=== PATIENT | female | born 2000 | race Caucasian/White ===

== ENCOUNTER 2020-02-24 11:00 | Outpatient (RCR) | payer BC, SELFPAY | END 2020-02-24 11:05 | disposition home or self-care (01) | LOC: PT 11:00 | PROVIDERS: PCP Emergency Medicine | DX: M54.42 Lumbago with sciatica, left side (principal) | CPT/HCPCS: 97163 ==

== ENCOUNTER 2020-04-14 11:36 | Emergency (ER) | payer BC, SELFPAY ==
[2020-04-14 11:42] VITALS: BP 145/96; PULSE 99; RESP 18; TEMP 36.9; O2SAT 100; BMI 29.2
[2020-04-14 12:00] VITALS: BMI 29.2
[2020-04-14 12:13] LABS: Microscopic, Urine URINE MICROSCOPIC (MICROSCOPIC)
[2020-04-14 12:14] LABS: Appearance,Urine CLEAR (Clear); Blood, Urine Negative (Negative); Color,Urine AMBER (Yellow); Glucose,Urine (UA) Negative (Negative); Ketones,Urine Negative (Negative); Leukocyte Esterase,Urine Negative (Negative); Nitrate,Urine Negative (Negative); Protein,Urine Negative (Negative); Specific Gravity, Urine 1.025 (1.005-1.030)
[2020-04-14 12:16] LABS: Urine Pregnancy, HCG Qual. Negative (Negative)
[2020-04-14 12:21] LABS: Bilirubin,Urine 1+ (Negative)
--- NOTE | 2020-04-14 12:29 | HMH.EDFEV ---
ED Disposition Clinical Impression: Fever of unknown origin Disposition: Home, Self-Care Condition on Discharge: Good Instructions: DI for Fever (Symptom) -- Adult Additional Instructions: fluids and see pcp for follow up Referrals: Oj Forrest MD [Primary Care Provider] - - Critical Care Critical Care Time: No Attestation: On 04/14/20, the high probability of a clinically significant, sudden or life threatening deterioration of the following system(s) required my full and direct attention, intervention and personal management. The time I documented below is in addition to time spent performing reported procedures but includes the following listed in this critical care notation. Medical Decision Making - Medical Records Medical records reviewed: Yes: I reviewed the patient's medical records. - Scooter Inquiry Pt receiving controlled substance: No Vital Signs: 04/14/20 11:42 Temperature 98.5 F Temperature Source Oral Pulse Rate [Right Radial] 99 H Respiratory Rate 18 Blood Pressure [Right Arm] 145/96 H Blood Pressure Mean [Right Arm] 112 Blood Pressure Source [Right Arm] Automatic Cuff Blood Pressure Position [Right Arm] Sitting 02 Sat by Pulse Oximetry 100 Oxygen Delivery Method Room Air - Lab Data Lab results reviewed: Yes: I reviewed the patient's lab results. Lab Results 04/14/20 12:00: Urine Color Maria [place], Urine Appearance Clear, Urine pH 6.0, Ur Specific [place] 1.025, Urine Protein Negative, Urine Glucose (UA) Negative, Urine Ketones Negative, Urine Blood Negative, Urine Nitrate Negative, Urine Bilirubin 1+ A, Urine Urobilinogen 4.0, Ur Leukocyte Esterase Negative 04/14/20 12:00: Urine HCG, Qual Negative Orders (Tests/Meds): ORDERS Category Date Time Status Urinalysis and Microscopic Stat Lab 04/14/20 12:00 Results Fever HPI - General Chief Complaint: Fever Stated Complaint: Fever Time Seen by Provider: 04/14/20 12:29 Mode of Arrival: Ambulatory Source of Information: Patient, Medical Record Limitations: No Limitations Description of Symptoms (Recalled from ER Triage Doc. by RN): Pt reports has been having intermittent fevers for 1.5 weeks. Pt reports only other symptom is nausea in the mornings. Pt reports last fever was lastnight - History of Present Illness HPI Narrative: pt with fever over the last week with no specific sx or rash - no sore throat and no exposure to mono/covid or any disease - no gi or gu sx complaint: fever Onset (ago): day(s) Associated symptoms: denies other symptoms Relieving factors: nothing Treatments prior to arrival fever: none - Related Data Previous Rx's Medication Instructions Recorded amoxicillin 500 mg capsule 500 mg PO Q12H 10 Days #20 cap 12/29/19 Allergies Allergy/AdvReac Type Severity Reaction Status Date / Time venom-honey bee Allergy Mild Verified 12/29/19 13:57 [bee venom (honey bee)] [facility] History - Hepatitis A Screen Drug use history?: No High risk sexual behaviors?: No History of sexually transmitted infection?: No Currently employed?: No Childcare worker?: No Do you have indoor plumbing?: Yes Do you have electricity?: Yes Attestation statement:: This patient has been screened for Hepatitis A risk factors. I have reviewed the patient's past medical history: Yes 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: Denies:: Cancer, Diabetes Mellitus Type 1, Diabetes Mellitus Type 2, MRSA Laterality Cases: Right: ACL Repair Other Surgeries: Yes: No Previous Surgery, Other Amputation: No Fractures: No - Social History Smoking Status: Never smoker Alcohol Intake: never Substance Use Type: denies use Occupational Status: employed Housing: house Household Members: family Family Hx:: Hypertension ROS Obtained: Yes All systems reviewed & no additional complaints - Constitutional Constitutional: Reports fever(s), Denies weakness - Eyes Eyes: Denies change in vision - ENT Ears, Nose, Mouth, and Throat: Imer
--- NOTE | 2020-04-14 12:33 | PC.NURSE ---
LAB IS COMING DOWN TO DRAW BLOOD ON PT
[2020-04-14 12:39] LABS: Bacteria,Urine Trace /lpf
[2020-04-14 13:14] VITALS: BP 124/78; PULSE 76; RESP 18; TEMP 36.8; O2SAT 98
[2020-04-14 13:21] LABS: Basophils # 0.1 K/mm3 (0-0.2); Basophils % 1.3 % (0.1-2.0); Chloride 105 mmol/L (98-107); Eosinophils # 0.2 K/mm3 (0.0-0.4); Eosinophils % 2.9 % (0.1-12.0); Hematocrit 31.1 % (37.0-47.0); Hemoglobin 10.7 g/dL (12.2-16.2); Lymphocytes # 4.2 K/mm3 (0.7-4.5); Mean Corpuscular HGB Conc 34.5 g/dL (31.8-35.4); Mean Corpuscular Hemoglobin 31.8 pg (27.0-31.2); Mean Corpuscular Volume 92.4 fl (81-99); Mean Platelet Volume 8.1 fl (7.4-10.4); Monocytes # 0.2 K/mm3 (0.1-1.0); Monocytes % 3.3 % (1.7-9.3); Neutrophils # 2.5 K/mm3 (1.8-7.8); Neutrophils % 34.4 % (37.0-80.0); Platelet Count 186 K/mm3 (142-424); Potassium 4.1 mmoL/L (3.5-5.1); Red Blood Count 3.37 M/mm3 (4.20-5.40); Red Cell Distribution Width 15.3 % (11.5-17.5); Sodium 137 mmol/L (136-145); White Blood Count 7.3 K/mm3 (4.5-13.0)
[2020-04-14 13:22] LABS: MANUAL DIFFERENTIAL MANUAL DIFFERENTIAL (MANUAL DIFF)
[2020-04-14 13:24] LABS: Alanine Aminotransferase 123 U/L (12-78); Albumin/Globulin Ratio 1.1 (1.1-1.8); Alkaline Phosphatase 187 U/L (38-126); Anion Gap 8.1 mEq/L (5-15); Aspartate Amino Transferase 101 U/L (14-36); Bilirubin,Total 0.8 mg/dl (0.2-1.3); Blood Urea Nitrogen 9 mg/dl (7-17); Calcium 9.5 mg/dl (8.4-10.2); Carbon Dioxide 28 mmol/L (22.0-30.0); Creatinine Clearance Estimated 206 mL/min (50-200); Estimated Glomerular Filt Rate 127 ml/min (>60); GFR (African American) 154 ML/MIN (>60); Globulin 3.6 g/dL (1.3-3.2); Glucose 111 mg/dl (74-100); Total Protein,Serum 7.6 g/dl (6.3-8.2)
[2020-04-14 13:30] LABS: C-Reactive Protein 10.1 mg/L (0-4)
[2020-04-14 13:39] LABS: Eosinophils % 2 % (0-3); Lymphocytes % 53 % (10-50); Monocytes % 5 % (2-9); Neutrophils % 34 % (42-76); Total Cells Counted 100
[2020-04-14 13:40] LABS: Platelet Estimate Normal; RBC Morphology Normal
[2020-04-14 13:44] LABS: T4 (Thyroxine) 12.2 ug/dl (5.53-11.0)
[2020-04-14 13:54] LABS: Erythrocyte Sedimentation Rate 106 mm/hr (0-20)
[2020-04-14 13:58] LABS: Thyroid Stimulating Hormone 1.78 uIU/mL (0.465-4.68)
== END 2020-04-14 13:16 | disposition home or self-care (01) ==
PROVIDERS: Emergency Provider Emergency Medicine; PCP Emergency Medicine
DX: R50.9 Fever, unspecified (principal)
CPT/HCPCS: 36415; 80053; 81001; 81025; 84436; 84443; 85007; 85025; 85651; 86140; 99282

== ENCOUNTER 2020-09-09 11:37 | Emergency (ER) | payer BC, SELFPAY ==
[2020-09-09 12:40] VITALS: BP 132/74; PULSE 66; RESP 20; TEMP 36.8; O2SAT 100; BMI 30.2
--- NOTE | 2020-09-09 13:01 | HMH.EDUTC ---
[facility] [place] Clinical Impression: UTI (urinary tract infection) Qualifiers: Urinary tract infection type: site unspecified Hematuria presence: without hematuria Qualified Code(s): N39.0 - Urinary tract infection, site not specified Disposition: Home, Self-Care Condition on Discharge: Good Instructions: Urinary Tract Infection Additional Instructions: Drink plenty of fluids. Take tylenol or ibuprofen for pain or fever. Take the medications as directed. Follow up with your regular doctor. GO TO THE ER FOR ANY WORSENING SYMPTOMS The pyridium will make your urine turn orange, this is an expected side effect. It will stain your clothes if it comes into contact with them. Prescriptions: Sulfamethoxazole/Trimethoprim [Bactrim DS tablet] 1 each PO BID 7 Days #14 tab Transmission Status: Received by [facility] Phenazopyridine HCl [Pyridium 200mg Tablet] 200 pow PO TID #6 tab Transmission Status: Received by [facility] Referrals: PCP,No [Primary Care Provider] - Forms: Work/School Release Time of Disposition: 13:12 Medical Decision Making - Medical Records Medical records reviewed: No: I reviewed the patient's medical records. - Scooter Inquiry Pt receiving controlled substance: No Vital Signs: 09/09/20 12:40 09/09/20 13:18 Temperature 98.3 F 98.3 F Temperature Source Oral Pulse Rate 66 Pulse Rate [Right Brachial] 66 Respiratory Rate 20 20 Blood Pressure 132/74 Blood Pressure [Right Arm] 132/74 Blood Pressure Mean [Right Arm] 93 Blood Pressure Source [Right Arm] Automatic Cuff Blood Pressure Position [Right Arm] Sitting 02 Sat by Pulse Oximetry 100 Oxygen Delivery Method Room Air - Lab Data Lab results reviewed: Yes: I reviewed the patient's lab results. Lab Results 09/09/20 13:19: Urine Color Yellow, Urine Appearance Clear, Urine pH 6.5, Ur Specific [place] 1.015, Urine Protein Negative, Urine Glucose (UA) Negative, Urine Ketones Negative, Urine Blood Negative, Urine Nitrate Negative, Urine Bilirubin Negative, Urine Urobilinogen 0.2, Ur Leukocyte Esterase 1+ A Orders (Tests/Meds): ORDERS Category Date Time Status Urine Culture Routine Micro 09/09/20 12:45 [place] [facility] [place] - General Stated complaint: Possible uti Time Seen by Provider: 09/09/20 13:01 - History of Present Illness Provider Complaint: She states that for the past 3 days she has been having burning while urinating, low back pain, and foul smelling urine. She states that sometimes she gets uti's and it feels like she has one now. - Related Data Previous Rx's Medication Instructions Recorded Phenazopyridine HCl [Pyridium 200 pow PO TID #6 tab 09/09/20 200mg Tablet] Sulfamethoxazole/Trimethoprim 1 each PO BID 7 Days #14 tab 09/09/20 [Bactrim DS tablet] Allergies Allergy/AdvReac Type Severity Reaction Status Date / Time venom-honey bee Allergy Mild Verified 12/29/19 13:57 [bee venom (honey bee)] [facility] History - Hepatitis A Screen Attestation statement:: This patient has been screened for Hepatitis A risk factors. I have reviewed the patient's past medical history: Yes 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: Denies:: Cancer, Diabetes Mellitus Type 1, Diabetes Mellitus Type 2, MRSA Laterality Cases: Right: ACL Repair Other Surgeries: Yes: No Previous Surgery, Other Amputation: No Fractures: No - Social History Smoking Status: Never smoker Alcohol Intake: never Substance Use Type: denies use Occupational Status: employed Housing: house Household Members: family Family Hx:: Hypertension ROS Obtained: Yes All systems reviewed & no additional complaints - Constitutional Constitutional: Reports system reviewed and no additional complaints, except as docu - Eyes Eyes: Reports system reviewed and no additional complaints, except as docu - ENT Ears, Nose, Mouth, and Throat: Reports system reviewed and no additional complaints, except as
[2020-09-09 13:18] VITALS: BP 132/74; PULSE 66; RESP 20; TEMP 36.8; O2SAT 100
[2020-09-09 13:21] LABS: Apearance,Urine Clear (Clear); Color,Urine Yellow (Yellow); PH,Urine 6.5 (5.0-8.5)
[2020-09-09 13:22] LABS: Bilirubin,Urine Negative (Negative); Blood, Urine Negative (Negative); Glucose,Urine (UA) Negative (Negative); Ketones,Urine Negative (Negative); Protein,Urine Negative (Negative); Specific Gravity, Urine 1.015 (1.005-1.030); UTC Leukocyte Esterase,Urine 1+ (Negative); UTC Nitrate,Urine Negative (Negative); Urobilinogen,Urine 0.2 EU/dl (0.2)
== END 2020-09-09 13:23 | disposition home or self-care (01) ==
PROVIDERS: Emergency Provider Nurse Practitioner Family
DX: N39.0 Urinary tract infection, site not specified (principal)
CPT/HCPCS: 81003; 87086; 99201

== ENCOUNTER 2021-02-17 17:00 | Outpatient (RCR) | payer BC, SELFPAY | END 2021-02-17 17:05 | disposition home or self-care (01) | LOC: PT 17:00 | PROVIDERS: PCP Nurse Practitioner Family; Visit Provider Orthopaedic Surgery Adult Reconstructive Orthopaedic Surgery | DX: M54.5 Low back pain (principal) | CPT/HCPCS: 97010; 97014; 97110; 97163; G0283 ==

== ENCOUNTER 2021-02-19 18:53 | Emergency (ER) | payer BC, SELFPAY ==
[2021-02-19 18:53] VITALS: BP 156/74; PULSE 83; RESP 16; TEMP 36.7; O2SAT 97; BMI 29.2
[2021-02-19 19:32] LABS: Apearance,Urine Clear (Clear); Color,Urine Yellow (Yellow); Specific Gravity, Urine >= 1.030 (1.005-1.030)
[2021-02-19 19:33] LABS: Bilirubin,Urine Negative (Negative); Blood, Urine 3+ (Negative); Glucose,Urine (UA) Negative (Negative); Ketones,Urine Negative (Negative); Protein,Urine 3+ (Negative); UTC Leukocyte Esterase,Urine 2+ (Negative); UTC Nitrate,Urine Negative (Negative); Urobilinogen,Urine 0.2 EU/dl (0.2)
--- NOTE | 2021-02-19 19:51 | HMH.EDUTC ---
[facility] [place] Clinical Impression: UTI (urinary tract infection) Qualifiers: Urinary tract infection type: site unspecified Hematuria presence: with hematuria Qualified Code(s): N39.0 - Urinary tract infection, site not specified Disposition: Home, Self-Care Condition on Discharge: Good Instructions: Urinary Tract Infection, DI for Urinary Tract Infection (UTI) Additional Instructions: Drink plenty of fluids. Take tylenol or ibuprofen for pain or fever. Take the medications as directed. Follow up with your regular doctor. GO TO THE ER FOR ANY WORSENING SYMPTOMS The pyridium will make your urine turn orange, this is an expected side effect. It will stain your clothes if it comes into contact with them. Prescriptions: Ondansetron [Zofran 4mg ODT] 4 mg PO Q8HP PRN #9 tab.rapdis PRN Reason: Nausea [id number] Sulfamethoxazole/Trimethoprim [Bactrim DS tablet] 1 each PO BID 7 Days #14 tab Transmission Status: [id number] Phenazopyridine HCl [Pyridium 200mg Tablet] 200 pow PO TID #6 tab Transmission Status: Received by [id number] Referrals: Anival Ames MD [Primary Care Provider] - Forms: Work/School Release Time of Disposition: 19:58 Medical Decision Making - Medical Records Medical records reviewed: No: I reviewed the patient's medical records. - Scooter Inquiry Pt receiving controlled substance: No Vital Signs: 02/19/21 18:53 02/19/21 20:05 Temperature 98.1 F 98.1 F Temperature Source Oral Oral Pulse Rate 83 Pulse Rate [Right] 83 Respiratory Rate 16 16 Blood Pressure 156/74 H Blood Pressure [Right Arm] 156/74 H Blood Pressure Mean [Right Arm] 101 02 Sat by Pulse Oximetry 97 - Lab Data Lab Results 02/19/21 19:18: Urine Color Yellow, Urine Appearance Clear, Urine pH 6.0, Ur Specific [place] >= 1.030, Urine Protein 3+, Urine Glucose (UA) Negative, Urine Ketones Negative, Urine Blood 3+, Urine Nitrate Negative, Urine Bilirubin Negative, Urine Urobilinogen 0.2, Ur Leukocyte Esterase 2+ A Orders (Tests/Meds): ORDERS Category Date Time Status Urine Culture Stat Micro 02/19/21 19:08 [place] [facility] [place] - General Stated complaint: possible uti Time Seen by Provider: 02/19/21 19:51 Description of Symptoms (Recalled from Triage Doc. by RN): pt c/o burning urination and itching that started since yesterday HEENT Symptoms (Recalled from RN notes): No Resp Symptoms (Recalled from RN notes): No Skin Symptoms (Recalled from RN notes): No MS Symptoms (Recalled from RN notes): No Functional Status (Recalled from RN notes): wnl - History of Present Illness Provider Complaint: She states that she has had dysuria since yesterday. She has also had low back pain and some nausea at times. She thinks that she has a uti. She gets them ever so often. - Related Data Previous Rx's Medication Instructions Recorded amoxicillin 500 mg capsule 500 mg PO Q12H 10 Days #20 cap 12/16/20 Ondansetron [Zofran 4mg ODT] 4 mg PO Q8HP PRN #9 tab.rapdis 02/19/21 Phenazopyridine HCl [Pyridium 200 pow PO TID #6 tab 02/19/21 200mg Tablet] Sulfamethoxazole/Trimethoprim 1 each PO BID 7 Days #14 tab 02/19/21 [Bactrim DS tablet] Allergies Allergy/AdvReac Type Severity Reaction Status Date / Time venom-honey bee Allergy Mild Verified 12/16/20 13:55 [bee venom (honey bee)] - Worker's Comp Is this a Worker's Comp case?: No [facility] History - Hepatitis A Screen Drug use history?: No High risk sexual behaviors?: No History of sexually transmitted infection?: No Currently employed?: No Childcare worker?: No Do you have indoor plumbing?: Yes Do you have electricity?: Yes Attestation statement:: This patient has been screened for Hepatitis A risk factors. I have reviewed the patient's past medical history: Yes 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: Denies:: Cancer, Diabetes Mellitus Type 1, Diabe
[2021-02-19 20:05] VITALS: BP 156/74; PULSE 83; RESP 16; TEMP 36.7; O2SAT 97
== END 2021-02-19 20:06 | disposition home or self-care (01) ==
PROVIDERS: Emergency Provider Nurse Practitioner Family; PCP Emergency Medicine
DX: N30.00 Acute cystitis without hematuria (principal)
CPT/HCPCS: 81003; 87086; 87088; 87186; 99202; G0463

== ENCOUNTER → 2021-06-13 14:48 | Outpatient (CLI) | payer BC, SELFPAY ==
[2021-06-13 17:48] LABS: Coronavirus 19, PCR Not Detected (NotDetected); Influenza A, PCR Not Detected (NotDetected); Influenza B, PCR Not Detected (NotDetected)
== END ==
PROVIDERS: PCP Physician Assistant; Referring Provider Physician Assistant; Visit Provider Physician Assistant
DX: Z20.822 Contact with and (suspected) exposure to COVID-19 (principal)
CPT/HCPCS: U0003

== ENCOUNTER → 2021-07-07 11:18 | Outpatient (CLI) | payer BC, SELFPAY | PROVIDERS: Visit Provider Nurse Practitioner Family | DX: Z20.822 Contact with and (suspected) exposure to COVID-19 (principal) | CPT/HCPCS: U0003 ==

== ENCOUNTER → 2021-12-06 08:27 | Outpatient (CLI) | payer OTHER, SELFPAY | PROVIDERS: PCP Emergency Medicine; Visit Provider Nurse Practitioner Family | DX: Z20.822 Contact with and (suspected) exposure to COVID-19 (principal); R05.1 Acute cough | CPT/HCPCS: C9803; U0003; U0005 ==

== ENCOUNTER 2022-11-04 15:53 | Emergency (ER) | payer BC, SELFPAY ==
[2022-11-04 16:20] VITALS: BP 149/88; PULSE 70; RESP 20; TEMP 36.9; O2SAT 98; BMI 31.7
[2022-11-04 16:29] LABS: Apearance,Urine Cloudy (Clear); Color,Urine Dark Yellow (Yellow)
[2022-11-04 16:30] LABS: Bilirubin,Urine 1+ (Negative); Blood, Urine 3+ (Negative); Glucose,Urine (UA) Negative (Negative); Ketones,Urine 15 (Negative); Protein,Urine 2+ (Negative); UTC Leukocyte Esterase,Urine 2+ (Negative); UTC Nitrate,Urine Negative (Negative); Urobilinogen,Urine 1 EU/dl (0.2)
--- NOTE | 2022-11-04 16:58 | EXP.UTC ---
Discharge Plan Disposition Patient Disposition: Home, Self-Care Condition: Good Prescriptions Prescriptions: New cephalexin [cephalexin] 500 mg tablet 500 mg PO BID 7 Days Qty: 14 0RF No Action citalopram [Celexa] 20 mg tablet 20 mg PO DAILY Qty: 30 1RF Referrals Follow up/Referrals: Anival Ames MD [Primary Care Provider] - See instructions Activity Restrictions/Add. Instructions Additional Instructions/Restrictions: Increase fluids, water and not soda or tea. Can drink cranberry juice or cranberry extract. White front to back Wear cotton underwear Empty bladder after intercourse Start antibiotics immediately and make sure you take the full course although you may start to see improvement over the next 48 hours. You can eat yogurt or take probiotics to decrease diarrhea or yeast infection caused by the antibiotic Be sure to follow-up anytime for new or worsening symptoms in 48 hours for wound urine culture results be sure to let you PCP no recent urine for culture so they can request records and ensure that you have appropriate antibiotic if you are not getting better or getting worse. If symptoms worsen or do not improve return or be seen in the ER. Follow-up with primary care this week. Clinical Impressions Clinical Impression: UTI (urinary tract infection) Instructions Patient Instructions: DI for Urinary Tract Infection (UTI) Discharge ED Provider: Allegra ([facility])Heidi [facility] [place] HPI General Stated complaint: possible UTI Mode of Arrival: Ambulatory Source of Information: Patient Limitations: No Limitations Time Seen by Provider: 11/04/22 16:59 Description of Symptoms (Recalled from Triage Doc. by RN): PATIENT C/O BURNING WITH URINATION, HEMATURIA, CRAMPING AND DISCHARGE THAT STARTED TODAY. SHE IS 12 WEEKS . SHE STATES SHE HAD E-COLI IN HER URINE AT THE BEGINNING OF SEPTEMBER WITHOUT SYMPTOMS AND WAS GIVEN MACROBID HEENT Symptoms (Recalled from RN notes): No Resp Symptoms (Recalled from RN notes): No Skin Symptoms (Recalled from RN notes): No MS Symptoms (Recalled from RN notes): No Functional Status (Recalled from RN notes): WNL History of Present Illness Provider Complaint: 21 YR OLD FEMALE PRESNETS C/O BURNING WITH URINATION, HEMATURIA, CRAMPING AND DISCHARGE THAT STARTED TODAY. SHE IS 12 WEEKS . SHE STATES SHE HAD E-COLI IN HER URINE AT THE BEGINNING OF SEPTEMBER WITHOUT SYMPTOMS AND WAS GIVEN MACROBID Related Data Previous Rx's Medication Instructions Recorded citalopram 20 mg tablet (Celexa) 20 mg PO DAILY #30 tabs 08/18/22 cephalexin 500 mg tablet 500 mg PO BID 7 days #14 tabs 11/04/22 Allergies Allergy/AdvReac Type Severity Reaction Status Date / Time venom-honey bee Allergy Mild Verified 08/18/22 09:47 [bee venom (honey bee)] Worker's Comp Is this a Worker's Comp case?: No [facility] Disclaimer: The information contained in this section may have been updated after the patient was seen, as this information can be updated by other users. 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
[2022-11-04 17:07] VITALS: BP 149/88; PULSE 70; RESP 20; TEMP 36.9; O2SAT 98
== END 2022-11-04 17:10 | disposition home or self-care (01) ==
PROVIDERS: Emergency Provider Nurse Practitioner Family; PCP Emergency Medicine
DX: N39.0 Urinary tract infection, site not specified (principal)
CPT/HCPCS: 81003; 87086; 99212; 99213; G0463

== ENCOUNTER 2022-11-10 15:13 | Emergency (ER) | payer BC, SELFPAY ==
[2022-11-10 15:19] VITALS: BP 119/80; PULSE 93; RESP 18; TEMP 37; O2SAT 98; BMI 32.7
--- NOTE | 2022-11-10 15:44 | US_ITS ---
FINAL REPORT TECHNIQUE: Transvaginal ultrasound imaging of the pelvis was obtained. CLINICAL HISTORY: vaginal bleeding FINDINGS: There is a single, living intrauterine measuring 63 mm consistent with 12 weeks 5 days gestation. Heart rate is identified measuring 167 beats per minute. Cervix appears closed. IMPRESSION: Single, living intrauterine . Reviewed, Interpreted and Dictated by Regino Cook III, MD Transcribed by Shea Mills Authenticated and [facility]
[2022-11-10 17:28] LABS: Basophils # 0.1 K/mm3 (0-0.2); Basophils % 0.6 % (0.1-2.0); Eosinophils # 0.2 K/mm3 (0.0-0.4); Eosinophils % 1.9 % (0.1-12.0); Hematocrit 33.7 % (37.0-47.0); Hemoglobin 11.7 g/dL (12.2-16.2); Lymphocytes # 2.7 K/mm3 (0.7-4.5); Lymphocytes % 21.8 % (10-50); Mean Corpuscular HGB Conc 34.6 g/dL (31.8-35.4); Mean Corpuscular Hemoglobin 31.6 pg (27.0-31.2); Mean Corpuscular Volume 91.2 fl (81-99); Monocytes # 0.4 K/mm3 (0.1-1.0); Monocytes % 3.6 % (1.7-9.3); Neutrophils % 72.2 % (37.0-80.0); Platelet Count 258 K/mm3 (142-424); Red Cell Distribution Width 12.9 % (11.5-17.5); White Blood Count 12.4 K/mm3 (4.8-10.8)
[2022-11-10 17:50] LABS: Chloride 105 mmol/L (98-107); Potassium 3.7 mmoL/L (3.5-5.1); Sodium 140 mmol/L (136-145)
[2022-11-10 17:52] LABS: Blood Urea Nitrogen 7 mg/dl (7-17); Creatinine Clearance Estimated 264 mL/min (50-200); Estimated Glomerular Filt Rate 154 ml/min (>60); GFR (African American) 187 ML/MIN (>60)
[2022-11-10 17:53] LABS: Alanine Aminotransferase 19 U/L (12-78); Albumin Level 4.1 g/dl (3.5-5.0); Albumin/Globulin Ratio 1.3 (1.1-1.8); Alkaline Phosphatase 66 U/L (38-126); Anion Gap 12.7 mEq/L (5-15); Aspartate Amino Transferase 25 U/L (14-36); Bilirubin,Total 0.2 mg/dl (0.2-1.3); Calcium 9.4 mg/dl (8.4-10.2); Carbon Dioxide 26 mmol/L (22.0-30.0); Globulin 3.1 g/dL (1.3-3.2); Glucose 81 mg/dl (74-100); Total Protein,Serum 7.2 g/dl (6.3-8.2)
[2022-11-10 18:20] VITALS: BP 133/71; PULSE 79; RESP 19; TEMP 36.9; O2SAT 98
[2022-11-10 18:48] LABS: HCG,Quantitative 80996 mIU/ml (0-5.42)
--- NOTE | 2022-11-10 19:54 | HMH.EDGENADL ---
Discharge Plan Disposition Patient Disposition: Home, Self-Care Prescriptions Prescriptions: No Action citalopram [Celexa] 20 mg tablet 20 mg PO DAILY Qty: 30 1RF cephalexin [cephalexin] 500 mg tablet 500 mg PO BID 7 Days Qty: 14 0RF Referrals Follow up/Referrals: Anival Ames MD [Primary Care Provider] - See instructions Clinical Impressions Clinical Impression: First-trimester bleeding Instructions Patient Instructions: DI for Vaginal Bleeding During , Early Bleeding Discharge ED Provider: Anish Ontiveros General Adult HPI General Chief complaint: Vaginal Bleeding Stated complaint: 12 weeks preg, bleeding Time Seen by Provider: 11/10/22 15:20 Mode of Arrival: Ambulatory Source of Information: Patient Limitations: No Limitations Description of Symptoms (Recalled from ER Triage Doc. 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 Patient sees Dr. Melgar with [facility]. She adds that she is currently taking Keflex since Sunday for UTI. History of Present Illness HPI narrative: Patient is a 21-year-old female who is currently a at 12 weeks who presents with concern for vaginal bleeding. She says approximately 30 minutes prior to arrival she got acute in onset of bright red vaginal bleeding. She called her OB who recommended she come in for evaluation. She says that this is never happened in the past. She says that it was just 1 time and it was bright red. She only endorses some very mild suprapubic pain. Denies any nausea or vomiting. Denies any fever or chills. Denies any dysuria or hematuria Related Data Previous Rx's Medication Instructions Recorded citalopram 20 mg tablet (Celexa) 20 mg PO DAILY #30 tabs 08/18/22 cephalexin 500 mg tablet 500 mg PO BID 7 days #14 tabs 11/04/22 Allergies Allergy/AdvReac Type Severity Reaction Status Date / Time venom-honey bee Allergy Mild Verified 08/18/22 09:47 [bee venom (honey bee)] [facility] Disclaimer: The information contained in this section may have been updated after the patient was seen, as this information can be updated by other users. 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) Smoking Status: Never smoker quit status: considering quitting second hand exposure: No alcohol intake: never substance use type: denies use current occupational status: employed Travel in the last 8 weeks: None adopted: No caregiver/support person: Yes (for her son) foster care: No household members: significant other and children housing: house lives independently: No marital status: life partner number of children: 1 number of grandchildren: 0 education level: high school service: No long-term: No 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
== END 2022-11-10 18:21 | disposition home or self-care (01) ==
PROVIDERS: Emergency Provider Student in an Organized Health Care Education/Training Program; PCP Emergency Medicine
DX: O46.8X1 Other antepartum hemorrhage, first trimester (principal); Z3A.12 12 weeks gestation of pregnancy
CPT/HCPCS: 76801; 80053; 84702; 85025; 86850; 99285

== ENCOUNTER → 2023-07-30 16:20 | Outpatient (CLI) | payer BC, SELFPAY ==
--- NOTE | 2023-07-30 16:27 | XR_ITS ---
PROCEDURE INFORMATION: Exam: XR Lumbosacral Spine Exam date and time: 07/30/2023 4:28 PM Age: 22 years old Clinical indication: Low back pain; Additional info: Back pain since epidural in April TECHNIQUE: Imaging protocol: Radiologic exam of the lumbosacral spine. Views: 4 or 5 views. COMPARISON: ABDPELWO CT abdomen pelvis wo con 07/05/2018 1:17 AM FINDINGS: Tubes, catheters and devices: There is an intrauterine device in place. Bones/joints: Vertebral alignment is within normal limits without evidence of subluxation or spondylolisthesis. No evidence of vertebral body compression fractures, lytic or sclerotic lesions. Intervertebral disc spaces are preserved and within normal limits for patient's age. Facet joints are in normal configuration without signs of arthrosis or effusion. Soft tissues: Paravertebral soft tissues appear unremarkable. IMPRESSION: No radiographic evidence for acute spinal abnormality.
== END ==
LOC: RAD 16:22
PROVIDERS: PCP Emergency Medicine; Visit Provider Nurse Practitioner
DX: M54.9 Dorsalgia, unspecified (principal)
CPT/HCPCS: 72110

== ENCOUNTER 2023-11-28 08:47 | Emergency (ER) | payer BC, SELFPAY ==
[2023-11-28 09:22] LABS: Apearance,Urine Cloudy (Clear); Color,Urine Yellow (Yellow)
[2023-11-28 09:23] LABS: Bilirubin,Urine Negative (Negative); Blood, Urine 3+ (Negative); Glucose,Urine (UA) Negative (Negative); Ketones,Urine Negative (Negative); Protein,Urine 1+ (Negative); UTC Leukocyte Esterase,Urine 1+ (Negative); UTC Nitrate,Urine Positive (Negative); Urobilinogen,Urine 0.2 EU/dl (0.2)
[2023-11-28 09:30] VITALS: BP 141/70; PULSE 71; RESP 18; TEMP 36.9; O2SAT 99; BMI 30.4
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
[2023-11-28 10:11] VITALS: BP 141/70; PULSE 71; RESP 19; TEMP 36.9; O2SAT 99
== END 2023-11-28 10:11 | disposition home or self-care (01) ==
PROVIDERS: Emergency Provider Nurse Practitioner Family; PCP Emergency Medicine
DX: N39.0 Urinary tract infection, site not specified (principal); B95.1 Streptococcus, group B, as the cause of diseases classified elsewhere; R10.30 Lower abdominal pain, unspecified; M54.59 Other low back pain
CPT/HCPCS: 81003; 87086; 99212; 99214; G0463

== ENCOUNTER 2024-05-06 20:30 | Outpatient (CLI) | payer BC, SELFPAY | END 2024-05-06 23:59 | disposition home or self-care (01) | LOC: LAB.DROPOF 20:31 | PROVIDERS: PCP Nurse Practitioner Family; Visit Provider Nurse Practitioner Family | DX: N39.0 Urinary tract infection, site not specified (principal); D64.9 Anemia, unspecified | CPT/HCPCS: 87086 ==

== ENCOUNTER 2024-05-26 12:43 | Outpatient (CLI) | payer BC, SELFPAY | END 2024-05-26 23:59 | disposition home or self-care (01) | LOC: LAB.DROPOF 05-27 12:43 | PROVIDERS: PCP Student in an Organized Health Care Education/Training Program; Visit Provider Student in an Organized Health Care Education/Training Program | DX: N39.0 Urinary tract infection, site not specified (principal) | CPT/HCPCS: 87086 ==

== ENCOUNTER 2024-07-24 08:18 | Emergency (ER) | payer BC, SELFPAY ==
[2024-07-24] VITALS (8 sets, daily range): BP systolic 126–159; BP diastolic 81–103; PULSE 67–98; RESP 16–20; TEMP 36.7–36.9; O2SAT 97–100; BMI 34.9
--- NOTE | 2024-07-24 08:39 | XR_ITS ---
FINAL REPORT CLINICAL HISTORY: chest pain, shortness of breath states left sided cp that started around 0400 this morning COMPARISON: None FINDINGS: No acute pulmonary density is evident. There is no evidence of effusion or other pleural disease. The mediastinum has a normal appearance. The cardiac silhouette is unremarkable. IMPRESSION: Unremarkable chest exam. Reviewed, Interpreted and Dictated by Connor Dewitt MD Transcribed by Linda Armas Authenticated and [facility]
--- NOTE | 2024-07-24 08:50 | ECG_ITS ---
APPROVED REPORT Exam: Resting ECG HR:74 bpm ECG Measurements Heart Rate 74 AXES NM 157 P 65 QRSd 92 QRS 88 QT 350 T 20 QTc 377 Conclusion SINUS RHYTHM NONSPECIFIC T-WAVE ABNORMALITY BORDERLINE ECG UNCONFIRMED REPORT Electronically signed by : MIKI ROCA, 07/25/2024 04:27:35
[2024-07-24 08:54] LABS: Basophils # 0.1 K/mm3 (0-0.2); Basophils % 0.4 % (0.1-2.0); Eosinophils # 0.2 K/mm3 (0.0-0.4); Eosinophils % 1.7 % (0.1-12.0); Hematocrit 42.7 % (37.0-47.0); Hemoglobin 14.2 g/dL (12.2-16.2); Lymphocytes # 1.6 K/mm3 (0.7-4.5); Mean Corpuscular HGB Conc 33.1 g/dL (31.8-35.4); Mean Corpuscular Hemoglobin 32.1 pg (27.0-31.2); Mean Platelet Volume 8.8 fl (7.4-10.4); Monocytes # 0.4 K/mm3 (0.1-1.0); Monocytes % 3.6 % (1.7-9.3); Neutrophils # 9.8 K/mm3 (1.8-7.8); Neutrophils % 81.3 % (37.0-80.0); Platelet Count 258 K/mm3 (142-424); Red Blood Count 4.41 M/mm3 (4.20-5.40); Red Cell Distribution Width 12.7 % (11.5-17.5)
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
--- NOTE | 2024-07-24 09:00 | PC.NURSE ---
provided pt with a warm blanket
[2024-07-24 09:13] LABS: HCG Qualitative, Serum Negative (Negative)
[2024-07-24 09:16] LABS: Alanine Aminotransferase 19 U/L (12-78); Albumin Level 4.8 g/dl (3.5-5.0); Albumin/Globulin Ratio 1.5 (1.1-1.8); Alkaline Phosphatase 72 U/L (38-126); Anion Gap 11.9 mEq/L (5-15); Aspartate Amino Transferase 23 U/L (14-36); Bilirubin,Total 0.9 mg/dl (0.2-1.3); Blood Urea Nitrogen 12 mg/dl (7-17); Calcium 9.6 mg/dl (8.4-10.2); Carbon Dioxide 25 mmol/L (22.0-30.0); Chloride 105 mmol/L (98-107); Creatinine Clearance Estimated 204 mL/min (50-200); Estimated Glomerular Filt Rate 103 ml/min (>60); GFR (African American) 124 ML/MIN (>60); Globulin 3.2 g/dL (1.3-3.2); Glucose 102 mg/dl (74-100); Lipase 105 U/L (23-300); Potassium 3.9 mmoL/L (3.5-5.1); Sodium 138 mmol/L (136-145)
[2024-07-24 09:20] LABS: D-Dimer 0.45 ug/mL (0.0-0.5)
[2024-07-24 09:29] LABS: Troponin I < 0.01 ng/ml (0.00-0.034)
[2024-07-24 09:34] LABS: T4 (Thyroxine) 7.8 ug/dl (5.53-11.0)
--- NOTE | 2024-07-24 09:38 | PC.NURSE ---
provided pt with a warm blanket
[2024-07-24 09:48] LABS: Thyroid Stimulating Hormone 1.93 uIU/mL (0.465-4.68)
[2024-07-24 09:56] LABS: HIV (1&2) Antibody Rapid NONREACTIVE (NONREACTIVE)
--- NOTE | 2024-07-24 10:00 | PC.NURSE ---
dr ricardo at bedside updating pt
--- NOTE | 2024-07-24 10:02 | PC.NURSE ---
Dr. Hobbs at bedside
--- NOTE | 2024-07-24 10:03 | US_ITS ---
FINAL REPORT TECHNIQUE: Multiple transverse and longitudinal images CLINICAL HISTORY: pain/tenderness COMPARISON: None FINDINGS: The gallbladder shows no wall thickening, distention or stone disease. No biliary ductal dilatation is appreciated. No fluid collections are seen. Limited portions of the right liver are unremarkable. Limited portions of the right kidney are unremarkable. IMPRESSION: No evidence of cholelithiasis No evidence of biliary obstruction Reviewed, Interpreted and Dictated by Connor Dewitt MD Transcribed by Radha Isidro Authenticated and [facility]
[2024-07-24] MEDS: FAMOTIDINE 20MG/2ML VIAL 20 MG IV (10:13)
[2024-07-24] MEDS: ACETAMINOPHEN 500MG TAB 1000 MG PO (10:13)
[2024-07-24] MEDS: SODIUM CHLORIDE 0.9% 10ML VIAL 8 ML IV (10:13)
--- NOTE | 2024-07-24 10:17 | PC.NURSE ---
pt transported to ultrasound
--- NOTE | 2024-07-24 10:37 | PC.NURSE ---
pt returned from us
[2024-07-25 08:33] LABS: HCV Ab Non Reactive (Non Reactive)
== END 2024-07-24 11:44 | disposition home or self-care (01) ==
PROVIDERS: Emergency Provider Emergency Medicine; PCP Nurse Practitioner Family
DX: R10.13 Epigastric pain (principal); R06.02 Shortness of breath
CPT/HCPCS: 71046; 76705; 80050; 80053; 83690; 84436; 84443; 84484; 84703; 85025; 85378; 86803; 87389; 93005; 96374; 99285; J1885; S0028

== ENCOUNTER 2024-09-02 09:58 | Emergency (ER) | payer BC, SELFPAY ==
[2024-09-02 10:10] VITALS: BP 166/96; PULSE 107; RESP 20; TEMP 37.1; O2SAT 100; BMI 31.8
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
[2024-09-02 10:31] LABS: UTC Strep Screen (Rapid) Negative (Negative)
[2024-09-02 10:32] LABS: UTC Influenza A Antigen Negative (Negative); UTC Influenza B Antigen Negative (Negative)
[2024-09-02 10:36] VITALS: BP 166/96; PULSE 107; RESP 20; TEMP 37.1; O2SAT 100
== END 2024-09-02 10:41 | disposition home or self-care (01) ==
PROVIDERS: Emergency Provider Nurse Practitioner; PCP Nurse Practitioner Family
DX: B34.9 Viral infection, unspecified (principal)
CPT/HCPCS: 87635; 87804; 87880; 99213; G0381

== ENCOUNTER 2024-09-03 19:09 | Emergency (ER) | payer BC, SELFPAY ==
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
[2024-09-03 21:00] VITALS: BP 155/84; PULSE 101; O2SAT 99
[2024-09-03 21:10] VITALS: BP 136/79; PULSE 94; O2SAT 99
[2024-09-03 21:11] VITALS: BP 142/82; PULSE 107; RESP 18; TEMP 36.9; O2SAT 99; BMI 31.8
[2024-09-03 21:25] LABS: Appearance,Urine CLEAR (Clear); Bilirubin,Urine Negative (Negative); Blood, Urine NEGATIVE (Negative); Color,Urine YELLOW (Yellow); Glucose,Urine (UA) Negative (Negative); Ketones,Urine Negative (Negative); Leukocyte Esterase,Urine NEGATIVE (Negative); Nitrate,Urine NEGATIVE (Negative); PH,Urine 7.5 (5.0-8.5); Protein,Urine NEGATIVE (Negative)
[2024-09-03 21:28] LABS: Urine Pregnancy, HCG Qual. Negative (Negative)
[2024-09-03 21:30] VITALS: BP 148/82; PULSE 90; O2SAT 98
[2024-09-03] MEDS: KETOROLAC 30MG/ML VIAL 15 MG IM (22:04)
[2024-09-03 22:06] VITALS: BP 144/83; PULSE 929; RESP 18; TEMP 36.9
== END 2024-09-03 22:08 | disposition home or self-care (01) ==
PROVIDERS: Emergency Provider Emergency Medicine; PCP Nurse Practitioner Family
DX: B34.9 Viral infection, unspecified (principal); M79.10 Myalgia, unspecified site; R50.9 Fever, unspecified; J02.9 Acute pharyngitis, unspecified
CPT/HCPCS: 81025; 96374; 99283; J1885

== ENCOUNTER 2024-09-18 08:58 | Emergency (ER) | payer BC, SELFPAY ==
--- OUTSIDE RECORDS SUMMARY | 2024-09-18 09:14 | XMS_ITS | Encounter Summary ---
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 Name Role Phone Anival Ames MD Primary Care Provider [phone] Reason for Referral * Diagnostic Imaging (Emergency) - Closed Specialty Diagnoses / Procedures Referred By Contac t Referred To Contact Obstetrics and Gynecology Diagnoses Encounter for IUD insertion Procedures US Non-ob Transvaginal Atilio Dunn MD [address] [address] Phone: tel: fax: [facility] [address] [place] [address] Phone: tel:[phone] fax:[phone] Referral ID Status Reason Start Date Expiration Date Visits Re quested Visits Authorized [id number] Closed 07/03/2023 07/02/2024 1 1 Reason for Visit * Reason Comments Care Encounter Details Date Type Department Care Team (Late st Contact Info) Description 07/03/2023 8:50 AM EDT Visit [facility] [address] [place] [address] Atilio Dunn MD [address] [place] [address] Encounter for IUD insertion (Primary Dx); 6 weeks follow-up Social History Tobacco Use Types Packs/Day Years Used Date Smoking Tobacco: Never Smokeless Tobacco: Never Alcohol Use Standard Drinks/Week Comments No 0 (1 standard drink = 0.6 oz pur e alcohol) AUDIT-C Answer Date Recorded Q1: How often do you have a drink containing alcohol? Never 05/10/2023 Q2: How many drinks containi ng alcohol do you have on a typical day when you are drinking? Patient does not drink Q3: How often do you have si x or more drinks on one occasion? Never 05/10/2023 Overall Financial Resource Strain (CARDIA) Answe r Date Recorded How hard is it for you to pa y for the very basics like food, housing, medical care, and heating? Not hard at all 05/10/2023 PHQ-2 Answer Date Recorded Retired PHQ-9: Brief Depression Severity Measure Score 0 05/10/2023 Exercise Vital Sign Answer Date Recorde d On average, how many days pe r week do you engage in moderate to strenuous exercise (like a brisk walk)? 2 days 05/10/2023 On average, how many minutes do you engage in exercise at this level? 20 min 05/10/2023 Hunger Vital Sign Answer Date Recorded Within the past 12 months, y ou worried that your food would run out before you got the money to buy more. Never true 05/10/20 23 Within the past 12 months, t he food you bought just didn't last and you didn't have money to get more. Never true 05/10/2023 PRAPARE - Transportation Answer Date Re corded In the past 12 months, has l ack of transportation kept you from medical appointments or from getting medications? No 04/28 In the past 12 months, has l ack of transportation kept you from meetings, work, or from getting things needed for daily living? No 05/10/2023 [place] Depression Scale Answer Date Recorded Retired [place] Depression Score 2 07/03/2023 Retired EPD Scale: Thought of Harming Self 07/03/2023 Abuse Screen Answer Date Recorded Feels Unsafe at Home or Work/School no 05/10/2023 Feels Threatened by Someone no 04/28 Does Anyone Try to Keep You From Having Contact with Others or Doing Things Outside Your Home? no 05/10/2023 Physical Signs of Abuse Present no 05/10/2023 Housing Stability Answer Date Recorded Current Living Arrangements home 04/28 Potentially Unsafe Housing Conditions none 05/10/2023 Family and Community Support Answer Gabby e Recorded If for any reason you need h elp with day-to-day activities such as bathing, preparing meals, shopping, managing finances, etc., do you get the help you need? I get all the help I need 05/10/2023 How often do you feel lonely or isolated from those around you? Never 05/10/2023 Employment Answer Date Recorded Do you want help finding or keeping work or a job? I do not need or want help 05/10/2023 Disabilities Answer Date Recorded Difficulty Concentrating, Remembering or Making Decisions no 05/10/2023 Difficulty Managing Errands Independently no 05/10/2023 Education Answer Date Recorded Do you want help with school or training? For example, starting or completing job training or getting a high school diploma, GED or equivalent No 05/10/2023 Preferred Language Mauritian 05/10/2023 PHQ-2 Answer Date Recorded Retired PHQ-9: Brief Depression Severity Measure Score 0 05/10/2023 Comments No Sex and Gender Information Value Date Recorded Sex Assigned at Not on file Legal Sex Female 4:02 PM EST Gender Identity Not on file Sexual Orientation Not on file Occupation Industry Job Start Date Job End Date STUDENT Not on file Not on file Not on file documented as of this encounter Last Filed Vital Signs Vital Sign Reading Time Taken Comments Blood Pressure 112/80 07/03/2023 8:50 AM EDT Pulse - - Temperature - - Respiratory Rate - - Oxygen Saturation - - Inhaled Oxygen Concentration - - Weight 91.2 kg (201 lb) 07/03/2023 8:50 AM EDT Height 175.3 cm (5' 9.02 ) 07/03/2023 8:50 AM ED T Body Mass Index 29.67 07/03/2023 8:50 AM EDT documented in this encounter Progress Notes * Atilio Dunn MD - 07/03/2023 8:50 AM EDT Images from the original note were not included. Chief Complaint Patient presents with Care Visit Anders Cleary is a 22 y.o. who presents today for a 6 week(s) check. C/S: no Vaginal, Spontaneous Information for the patient's : Polina Cleary [[id number]] 05/10/2024 male Polina Cleary 3495 g (7 lb 11.3 oz) Gestational Age: 38w1d Baby Discharged: Discharged with Mom Delivering Physician: Atilio Melgar MD At the time of delivery were you diagnosed with any of the following: None. The laceration with unspecified degree is healing well. Patient describes vaginal bleeding as absent. Patient is bottle feeding. She desires contraceptive methods: IUD for contraception. Patient denies bowel or bladder issues. Patient denies depression. Depression Screening Questionnaire: completed , score 2 treatment is not indicated. unspecified Last Pap : 01/18/2022. Results: negative. HPV: negative. Last Completed Pap Smear PAP SMEAR (Every 3 Years) Next due on 01/25/2025 01/25/2022 Done The additional following portions of the patient's history were reviewed and updated as appropriate: allergies, current medications, past family history, past medical history, past social history, past surgical history, and problem list. Review of Systems All other systems reviewed and are negative. All other systems reviewed and are negative. I have reviewed and agree with the HPI, ROS, and historical information as entered above. Atilio Dunn MD BP 112/80 Ht 175.3 cm (69.02 ) Wt 91.2 kg (201 lb) LMP 08/17/2022 No BMI 29.67 kg/m?? Physical Exam Vitals and nursing note reviewed. Exam conducted with a mangle catcher present. Genitourinary: Labia: Right: No rash, tenderness or lesion. Left: No rash, tenderness or lesion. Vagina: Normal. No lesions. Cervix: No cervical motion tenderness, discharge, lesion or cervical bleeding. Uterus: Normal. Not enlarged, not fixed and not tender. Adnexa: Right: No mass or tenderness. Left: No mass or tenderness. Rectum: No external hemorrhoid. 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 Doing well. Return to normal physical activity. No pelvic restrictions. Baby doing well. Bottlefeeding going well. Contraception: contraceptive methods: IUD. Insertion date: Return for IUD check 1 mo . Atilio Dunn MD 07/03/2023 * Atilio Dunn MD - 07/03/2023 8:50 AM EDT Procedure: IUD Insertion Procedure Note Procedures Pre procedure indication 1) Desires Mirena Post procedure indication 1) Desires Mirena [facility] #: [id number] Lot #: [id number] Exp Date: 09/27/2025 BH device Patient's LMP was She did have a UPT in office today. The results were Negative. The risks, benefits, and alternatives to Mirena were explained at length with the patient. All her questions were answered and consents were signed. The patient was placed in a dorsal lithotomy position on the examining table in [facility]. A bimanual exam confirmed the uterus was normal in size, . A warmed metal speculum was inserted into the vagina and the cervix was brought into view. The cervix was prepped with Betadine. The anterior lip was grasped with a single-tooth tenaculum. The endometrial cavity was then sounded to 7 cm without use of a dilator. This sealed Mirena package was opened and the IUD was removed in a sterile fashion. The upper edge of the depth setting the flange was set at a uterine sound measured. The elevator examiner and adjuster was then carefully advanced to the cervical canal into the uterus to the level of the fundus. The slider was then retracted about 1 cm and deployed the device. The device was then gently advanced to thefundus. The IUD was then released by pulling the slider down all the way. The elevator examiner and adjuster was removed carefully from the uterus. The threads were then cut leaving 2-3 cm visible outside of the cervix. The single-tooth tenaculum was removed from the anterior lip. Good hemostasis was noted. All other instruments were removed from the vagina. There were no complications. The patient tolerated the procedure well with a minimal amount of discomfort.us CONFIRMED CORRECT PLACEMENT The patient was counseled about the need to return in 4 weeks with U/S for IUD check. She was counseled about the need to use a backup method of contraception such as condoms until her post insertion exam was performed. The patient verbalized understanding that the Mirena will need antoni removed/replaced after 7 years. The patient is counseled to contact us if she has any significant or increasing bleeding, pain, fever, chills, or other concerns. She is instructed to see a doctor right away if she believes that she may be at any time with the IUD in place. Atilio Dunn MD 07/03/2023 documented in this encounter Plan of Treatment Not on file documented as of this encounter Procedures Procedure Name Priority Date/Time Associated Diagnosis Comments US NON-OB TRANSVAGINAL STAT 07/03/2023 10:33 AM EDT Encounter for IUD insertion POCT PEFORM URINE Routine 07/03/2023 9:50 AM EDT Encounter for IUD insertion documented in this encounter Results * US Non-ob Transvaginal (07/03/2023 10:33 AM EDT) Anatomical Region Laterality Modality Body Ultrasound 07/03/2023 10:2 2 AM EDT Narrative 07/03/2023 2:19 PM EDT PAT NAME: ANDERS CLEARY MED REC#: [id number] DA: [id number] PAT GEND: F PAT TYPE: O EXAM GABBY: [id number] REF PHYS ATILIO DUNN Indication ======== IUD check Comparison Studies There are no relevant prior studies to which this study is being compared Method ======= Voluson E6, Transvaginal ultrasound examination, Color Doppler flow performed, 3D ultrasound examination. View: Adequate view Uterus ====== Uterus: Normal Uterus position: Anteverted Description of uterine malformations: none Myometrium: Homogeneous Endometrium: Uniform Cervix details: Normal Uterus long 72 mm Uterus ap 41 mm Uterus tr 58 mm Uterus Vol 90.0 cm?? Endometrial thickness, total 7.6 mm IUCD ===== Position control Location: IUCD placed correctly at the fundus of the uterus Right Ovary Rt ovary: Visualized Rt ovary D1 17.7 mm Rt ovary D2 18.8 mm Rt ovary D3 10.1 mm Rt ovary Vol 1.8 cm?? Left Ovary ========= Lt ovary: Visualized Lt ovary D1 42.0 mm Lt ovary D2 43.7 mm Lt ovary D3 20.20 mm Lt ovary Vol 19.4 cm?? Lt ovarian cyst D1 28.0 mm Lt ovarian cyst D2 16.0 mm Lt ovarian cyst D3 22.0 mm Lt ovarian cyst mean 22.0 mm Lt ovarian cyst vol 5.161 cm?? Lt ovarian cyst findings: Simple cyst Cul de Sac Normal. No free fluid visualized Impression There is an appropriately placed endometrial IUD Recommendation Follow-up as clinically indicated. Warehouse Specialist: RT Amandeep Díaz, [facility] Physician: Atilio Dunn II, MD, FACOG Electronically signed by: Atilio Dunn II, MD, FACOG at: 14:19 Procedure Note Atilio Dunn MD - 07/03/2023 PAT NAME: ANDERS CLEARY MED REC#: [id number] DA: 2000 PAT GEND: F PAT TYPE: O EXAM GABBY: [id number] REF PHYS ATILIO DUNN Indication ======== IUD check Comparison Studies There are no relevant prior studies to which this study is beingcompared Method ======= [place]on E6, Transvaginal ultrasound examination, Color Doppler flowperformed, 3D ultrasound examination. View: Adequate view Uterus ====== Uterus:Normal Uterus position:Anteverted Description of uterine malformations:none Myometrium:Homogeneous Endometrium:Uniform Cervix details:Normal Uterus long72 mm Uterus ap41 mm Uterus tr58 mm Uterus Vol90.0 cm?? Endometrial thickness, total7.6 mm IUCD ===== Position control Location: IUCD placed correctly at the fundus of the uterus Right Ovary Rt ovary:Visualized Rt ovary D117.7 mm Rt ovary D218.8 mm Rt ovary D310.1 mm Rt ovary Vol1.8 cm?? Left Ovary ========= Lt ovary:Visualized Lt ovary D142.0 mm Lt ovary D243.7 mm Lt ovary D320.20 mm Lt ovary Vol19.4 cm?? Lt ovarian cyst D128.0 mm Lt ovarian cyst D216.0 mm Lt ovarian cyst D322.0 mm Lt ovarian cyst mean22.0 mm Lt ovarian cyst vol5.161 cm?? Lt ovarian cyst findings:Simple cyst Cul de Sac Normal. No free fluid visualized Impression There is an appropriately placed endometrial IUD Recommendation Follow-up as clinically indicated. Warehouse Specialist: RT Amandeep Díaz, [facility] Physician: Atilio Dunn II, MD, FACOG Electronically signed by: Atilio Dunn II, MD, FACOG at: 14:19 us Atilio Dunn MD [facility] ORDERABLES Final Result * POC , Urine (07/03/2023 9:50 AM EDT) HCG, Urine, QL Negative Negative [facility] Lot Number [id number] [facility] Internal Positive Control Positive Positive, Passed [facility] Internal Negative Control Negative Negative, Passed [facility] Expiration Date 03/28/2024 [facility] Urine 07/03/2023 9:50 AM EDT us Atilio Dunn MD POINT OF CARE TEST ORDERABLES F inal Result [facility]
[address] [place] [address], documented in this encounter Visit Diagnoses Diagnosis Encounter for IUD insertion- Primary Insertion of intrauterine contraceptive device 6 weeks follow-up documented in this encounter Administered Medications Inactive Administered Medications - up to 3 most recent administrations Medication Order MAR Action Action Date Dose Rate Site Levonorgestrel (MIRENA) 20 MCG/DAY IUD intrauterine device 1 each 1 each, Intrauterine, Once, On Sun07/03/23 at 1045, For 1 doseIndications:Encounter for IUD insertion Given 07/03/2023 10:14 AM EDT 1 each documented in this encounter Care Teams Offset Press Operator Helper Relationship Specialty Start Date End Date Anival Ames MD PCP - General Emergency Medicine 08/17/20 documented as of this encounter
--- OUTSIDE RECORDS SUMMARY | 2024-09-18 09:14 | XMS_ITS | Encounter Summary ---
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 Based on patient request - if ordered for moderate or severe pain, provider allows for administration of a medication prescribed for a lower pain scale. If given for pain, use the following pain scale: Mild Pain = Pain Score of 1-3, CPOT 1-2 Moderate Pain = Pain Score of 4-6, CPOT 3-4 Severe Pain = Pain Score of 7-10, CPOT 5-8 Given 05/12/2023 1:10 PM EDT 600 mg Uterus Given 05/12/2023 3:54 AM EDT 600 mg Given 05/11/2023 4:20 PM EDT 600 mg lactated ringers bolus 1,000 mL 1,000 mL, Intravenous, at 2,000 mL/hr, Administer over 0.5 Hours, Once As Needed, Epidural, Starting on Alejandrina 05/10/23 at 0944, For 1 dose, Indications: Epidural Anesthesia, EpiduralIndications:Epidural Anesthesia,Epidural New Bag 05/10/2023 3:20 PM EDT 1,000 mL 2000 mL/hr lactated ringers infusion 125 mL/hr, Intravenous, Continuous, Starting on Alejandrina 05/10/23 at 1030Indications: care, subsequent , third trimester New Bag 05/10/2023 3:40 PM EDT 125 mL/hr 125 mL/hr Rate/Dose Change 05/10/2023 3:10 PM EDT 999 mL/hr 999 mL/ hr New Bag 05/10/2023 10:31 AM EDT 125 mL/hr 125 mL/hr lanolin topical 1 application 1 application , Topical, Every 1 Hour PRN, Dry Skin, nipple pain, Starting on Alejandrina 05/10/23 at 2225, May keep at bedside. Given 05/10/2023 10:44 PM EDT 1 application magnesium hydroxide (MILK OF MAGNESIA) 400 MG/5ML suspension 30 mL 30 mL, Oral, Daily PRN, Constipation, Starting on Alejandrina 05/10/23 at 2225 oxytocin (PITOCIN) 30 units in 0.9% sodium chloride 500 mL (premix) 2-20 naomy-units/min (2-20 mL/hr), Intravenous, Titrated, Starting on Alejandrina 05/10/23 at 1345, Start at 2 naomy-units/min and titrate up or down by 2 naomy-units every 30 min to a max of 20 naomy-units/min. Titrate to maternal/ tolerance, with a goal of achieving an adequate labor pattern defined by progressive cervical effacement and cervical dilation of approximately 0.5 cm/hr to 1 cm/hr once active labor is achieved. Contractions should not be more frequent than every 2 minutes. Notify physician for tachysystole. Group 2 ([facility]) Hazardous Drug - Reproductive Risk Only - See Handling Guide Rate/Dose Change 05/10/2023 3:46 PM EDT 6 naomy-units/min 6 mL/hr Rate/Dose Change 05/10/2023 2:56 PM EDT 4 naomy-units/min 4 mL/hr New Bag 05/10/2023 1:17 PM EDT 2 naomy-units/min 2 mL/h r oxytocin (PITOCIN) 30 units in 0.9% sodium chloride 500 mL (premix) 15 Units, Intravenous, at 1,000 mL/hr, Administer over 15 Minutes, Once, On Alejandrina 05/10/23 at 1900, For 1 dose, Infuse 250 ml at 999 ml/hr. If patient has a previous bag with remaining volume, please use remainder of that bag to avoid waste. Goal is to give no more than one total 500 mL bag to conserve product. Additional bags only to be used if indicated for bleeding. Group 2 ([facility]) Hazardous Drug - Reproductive Risk Only - See Handling GuideIndications: care, subsequent , third trimester New Bag 05/10/2023 6:28 PM EDT 85 Units 1000 mL/hr Rate/Dose Change 05/10/2023 6:13 PM EDT 1000 mL /hr penicillin g 5 MU/100 mL 0.9% NS IVPB (mbp) 5 Million Units, Intravenous, Administer over 30 Minutes, Once, On Alejandrina 05/10/23 at 1045, For 1 dose, Caution: Look alike/sound alike drug alert. Break seal and mix to activiate vial before use., Indications: Group B Streptococcus Positive Mother in PregnancyIndications:Group B Streptococcus Positive Mother in New Bag 05/10/2023 10:38 AM EDT 5 Million Units penicillin G in iso-osmotic dextrose IVPB 3 million units (premix) 3 Million Units, Intravenous, Administer over 30 Minutes, Every 4 Hours, First dose on Alejandrina 05/10/23 at 1400, For 1 day, Caution: Look alike/sound alike drug alert, Indications: Group B Streptococcus Positive Mother in PregnancyIndications:Group B Streptococcus Positive Mother in New Bag 05/10/2023 2:22 PM EDT 3 Million Units sodium chloride 0.9 % flush 1-10 mL 1-10 mL, Intravenous, As Needed, Line Care, Starting on Alejandrina 05/10/23 at 2225 witch moody-glycerin (TUCKS) pad 1 pad 1 pad (1 each), Topical, As Needed, Irritation, Hemorrhoids, Starting on Alejandrina 05/10/23 at 2225, May leave at bedside. Given 05/10/2023 10:44 PM EDT 1 pad documented in this encounter Active and Recently Administered Medications Times are shown in EDT. Scheduled Medication Order 05/10/2023 05/11/2023 05/12/2023 docusate sodium (COLACE) capsule 100 mg 100 mg, Oral, 2 Times Daily, First dose on Alejandrina 05/10/23 at 2315, Swallow whole. Do not open, crush, or chew capsule. 2315 (Due) 0939 (Given - Provider: Maddy Castillo, NEDRA)2100 (Due) 0919 (Given - Provider: Jodi Will, NEDRA) oxytocin (PITOCIN) 30 units in 0.9% sodium chloride 500 mL (premix) (COMPLETED)(Linked Group 1) 15 Units, Intravenous, at 1,000 mL/hr, Administer over 15 Minutes, Once, On Alejandrina 05/10/23 at 1900, For 1 dose, Infuse 250 ml at 999 ml/hr. If patient has a previous bag with remaining volume, please use remainder of that bag to avoid waste. Goal is to give no more than one total 500 mL bag to conserve product. Additional bags only to be used if indicated for bleeding. Group 2 ([facility]) Hazardous Drug - Reproductive Risk Only - See Handling Guide 1813 (Rate/Dose Change - Provider: Hailee Chang RN)1828 (New Bag - Provider: Hailee Chang RN) penicillin g 5 MU/100 mL 0.9% NS IVPB (mbp) (COMPLETED)(Linked Group 2) 5 Million Units, Intravenous, Administer over 30 Minutes, Once, On Alejandrina 05/10/23 at 1045, For 1 dose, Caution: Look alike/sound alike drug alert. Break seal and mix to activiate vial before use., Indications: Group B Streptococcus Positive Mother in 1038 (New Bag - Provider: Hailee Chang, NEDRA) penicillin G in iso-osmotic dextrose IVPB 3 million units (premix) (CANCELED)(Linked Group 2) 3 Million Units, Intravenous, Administer over 30 Minutes, Every 4 Hours, First dose on Alejandrina 05/10/23 at 1400, For 1 day, Caution: Look alike/sound alike drug alert, Indications: Group B Streptococcus Positive Mother in 1422 (New Bag - Provider: Hailee Chang RN)1800 (Due) Continuous Medication Order 05/10/2023 05/11/2023 05/12/2023 lactated ringers infusion 125 mL/hr, Intravenous, Continuous, Starting on Alejandrina 05/10/23 at 1030 1015 (New Bag - Provider: Hailee Chang RN)1031 (New Bag - Provider: Hailee Chang RN)1510 (Rate/Dose Change - Provider: Hailee Chang RN)1540 (New Bag - Provider: Hailee Chang RN) oxytocin (PITOCIN) 30 units in 0.9% sodium chloride 500 mL (premix) (CANCELED) 2-20 naomy-units/min (2-20 mL/hr), Intravenous, Titrated, Starting on Alejandrina 05/10/23 at 1345, Start at 2 naomy-units/min and titrate up or down by 2 naomy-units every 30 min to a max of 20 naomy-units/min. Titrate to maternal/ tolerance, with a goal of achieving an adequate labor pattern defined by progressive cervical effacement and cervical dilation of approximately 0.5 cm/hr to 1 cm/hr once active labor is achieved. Contractions should not be more frequent than every 2 minutes. Notify physician for tachysystole. Group 2 ([facility]) Hazardous Drug - Reproductive Risk Only - See Handling Guide 1317 (New Bag - Provider: Hailee Chang RN)1345 (Due)1456 (Rate/Dose Change - Provider: Hailee Chang RN)1546 (Rate/Dose Change - Provider: Hailee Chang RN) ropivacaine (NAROPIN) 0.2 % injection (CANCELED) 15 mL/hr, Epidural, Continuous, Starting on Alejandrina 05/10/23 at 1615, Anesthesiologist To Adjust Rate As Needed. RN May Replace Epidural Infusion Fluids As Ordered 1546 (New Bag - Provider: Sierra Montano CRNA) PRN Medication Order 05/10/2023 05/11/2023 05/12/2023 acetaminophen (TYLENOL) tablet 650 mg 650 mg, Oral, Every 6 Hours PRN, Mild Pain, Second Line: Mild pain unrelieved by ibuprofen. Stagger doses 3 hours after dose of ibuprofen., Starting on Alejandrina 05/10/23 at 2225, Based on patient request - if ordered for moderate or severe pain, provider allows for administration of a medication prescribed for a lower pain scale. Do not exceed 4 grams of acetaminophen in a 24 hr period. Max dose of 2gm for AST/ALT greater than 120 units/L If given for fever, use fever parameter: fever greater than 100.4 ??F. If given for pain, use the following pain scale: Mild Pain = Pain Score of 1-3, CPOT 1-2 Moderate Pain = Pain Score of 4-6, CPOT 3-4 Severe Pain = Pain Score of 7-10, CPOT 5-8 benzocaine (AMERICAINE) 20 % rectal ointment 1 application 1 application , Rectal, As Needed, Hemorrhoids, Starting on Alejandrina 05/10/23 at 2225, May leave at bedside. {SP} benzocaine-menthol (DERMOPLAST) 20-0.5 % topical spray Topical, As Needed, Mild Pain, perineal pain, Starting on Alejandrina 05/10/23 at 2225, May leave at bedside. If given for pain, use the following pain scale: Mild Pain = Pain Score of 1-3, CPOT 1-2 Moderate Pain = Pain Score of 4-6, CPOT 3-4 Severe Pain = Pain Score of 7-10, CPOT 5-8 2244 (Given - Provider: Jenny Mendoza RN) bisacodyl (DULCOLAX) suppository 10 mg 10 mg, Rectal, Daily PRN, Constipation, Starting on Sun05/11/23 at 0000, Begin on day 1 if no BM Hold for diarrhea HYDROcodone-acetaminophen (NORCO) 10-325 MG per tablet 1 tablet(Linked Group 3) 1 tablet, Oral, Every 4 Hours PRN, Severe Pain, Starting on Alejandrina 05/10/23 at 2225, For 7 days, Based on patient request - if ordered for moderate or severe pain, provider allows for administration of a medication prescribed for a lower pain scale. [DERRICK] Do not exceed 4 grams of acetaminophen in a 24 hr period. Max dose of 2gm for AST/ALT greater than 120 units/L If given for pain, use the following pain scale: Mild Pain = Pain Score of 1-3, CPOT 1-2 Moderate Pain = Pain Score of 4-6, CPOT 3-4 Severe Pain = Pain Score of 7-10, CPOT 5-8 HYDROcodone-acetaminophen (NORCO) 5-325 MG per tablet 1 tablet(Linked Group 3) 1 tablet, Oral, Every 4 Hours PRN, Moderate Pain, Starting on Alejandrina 05/10/23 at 2225, For 7 days, Based on patient request - if ordered for moderate or severe pain, provider allows for administration of a medication prescribed for a lower pain scale. [DERRICK] Do not exceed 4 grams of acetaminophen in a 24 hr period. Max dose of 2gm for AST/ALT greater than 120 units/L If given for pain, use the following pain scale: Mild Pain = Pain Score of 1-3, CPOT 1-2 Moderate Pain = Pain Score of 4-6, CPOT 3-4 Severe Pain = Pain Score of 7-10, CPOT 5-8 Hydrocortisone (Perianal) (ANUSOL-HC) 2.5 % rectal cream 1 application 1 application , Rectal, As Needed, Hemorrhoids, Starting on Alejandrina 05/10/23 at 2225, May leave at bedside hydrOXYzine (ATARAX) tablet 50 mg 50 mg, Oral, Nightly PRN, Sleep, Starting on Alejandrina 05/10/23 at 2225, Caution: Look alike/sound alike drug alert ibuprofen (ADVIL,MOTRIN) tablet 600 mg 600 mg, Oral, Every 6 Hours PRN, Mild Pain, First Line: Mild pain., Starting on Alejandrina 05/10/23 at 2225, Based on patient request - if ordered for moderate or severe pain, provider allows for administration of a medication prescribed for a lower pain scale. If given for pain, use the following pain scale: Mild Pain = Pain Score of 1-3, CPOT 1-2 Moderate Pain = Pain Score of 4-6, CPOT 3-4 Severe Pain = Pain Score of 7-10, CPOT 5-8 0939 (Given - Provider: Maddy Castillo RN)1620 (Given - Provider: Maddy Castillo RN) 0354 (Given - Provider: Maddy Bella RN)1310 (Given - Provider: Jodi Will RN - Comment: inter. cramping) lactated ringers bolus 1,000 mL (COMPLETED) 1,000 mL, Intravenous, at 2,000 mL/hr, Administer over 0.5 Hours, Once As Needed, Epidural, Starting on Alejandrina 05/10/23 at 0944, For 1 dose, Indications: Epidural Anesthesia, Epidural 1520 (New Bag - Provider: Hailee Chang RN) lanolin topical 1 application 1 application , Topical, Every 1 Hour PRN, Dry Skin, nipple pain, Starting on Alejandrina 05/10/23 at 2225, May keep at bedside. 2243 (Given - Provider: Jenny Mendoza, NEDRA) magnesium hydroxide (MILK OF MAGNESIA) 400 MG/5ML suspension 30 mL 30 mL, Oral, Daily PRN, Constipation, Starting on Alejandrina 05/10/23 at 2225 sodium chloride 0.9 % flush 1-10 mL 1-10 mL, Intravenous, As Needed, Line Care, Starting on Alejandrina 05/10/23 at 2225 witch moody-glycerin (TUCKS) pad 1 pad 1 pad (1 each), Topical, As Needed, Irritation, Hemorrhoids, Starting on Alejandrina 05/10/23 at 2225, May leave at bedside. 2243 (Given - Provider: Jenny Mendoza RN) Linked Groups Order Group 1: oxytocin (PITOCIN) 30 units in 0.9% sodium chloride 500 mL (premix) (COMPLETED)Jump to med 15 Units, Intravenous, at 1,000 mL/hr, Administer over 15 Minutes, Once, On Alejandrina 05/10/23 at 1900, For 1 dose, Infuse 250 ml at 999 ml/hr. If patient has a previous bag with remaining volume, please use remainder of that bag to avoid waste. Goal is to give no more than one total 500 mL bag to conserve product. Additional bags only to be used if indicated for bleeding. Group 2 ([facility]) Hazardous Drug - Reproductive Risk Only - See Handling Guide Followed by oxytocin (PITOCIN) 30 units in 0.9% sodium chloride 500 mL (premix) () 15 Units, Intravenous, at 250 mL/hr, Administer over 60 Minutes, Continuous, Starting on Alejandrina 05/10/23 at 1915, For 1 hour, Infuse at 250 ml/hr for remaining volume in bag. Group 2 ([facility]) Hazardous Drug - Reproductive Risk Only - See Handling Guide Group 2: penicillin g 5 MU/100 mL 0.9% NS IVPB (mbp) (COMPLETED)Jump to med 5 Million Units, Intravenous, Administer over 30 Minutes, Once, On Alejandrina 05/10/23 at 1045, For 1 dose, Caution: Look alike/sound alike drug alert. Break seal and mix to activiate vial before use., Indications: Group B Streptococcus Positive Mother in Followed by penicillin G in iso-osmotic dextrose IVPB 3 million units (premix) (CANCELED)Jump to med 3 Million Units, Intravenous, Administer over 30 Minutes, Every 4 Hours, First dose on Alejandrina 05/10/23 at 1400, For 1 day, Caution: Look alike/sound alike drug alert, Indications: Group B Streptococcus Positive Mother in Group 3: HYDROcodone-acetaminophen (NORCO) 5-325 MG per tablet 1 tabletJump to med 1 tablet, Oral, Every 4 Hours PRN, Moderate Pain, Starting on Alejandrina 05/10/23 at 2225, For 7 days, Based on patient request - if ordered for moderate or severe pain, provider allows for administration of a medication prescribed for a lower pain scale. [DERRICK] Do not exceed 4 grams of acetaminophen in a 24 hr period. Max dose of 2gm for AST/ALT greater than 120 units/L If given for pain, use the following pain scale: Mild Pain = Pain Score of 1-3, CPOT 1-2 Moderate Pain = Pain Score of 4-6, CPOT 3-4 Severe Pain = Pain Score of 7-10, CPOT 5-8 Or HYDROcodone-acetaminophen (NORCO) 10-325 MG per tablet 1 tabletJump to med 1 tablet, Oral, Every 4 Hours PRN, Severe Pain, Starting on Alejandrina 05/10/23 at 2225, For 7 days, Based on patient request - if ordered for moderate or severe pain, provider allows for administration of a medication prescribed for a lower pain scale. [DERRICK] Do not exceed 4 grams of acetaminophen in a 24 hr period. Max dose of 2gm for AST/ALT greater than 120 units/L If given for pain, use the following pain scale: Mild Pain = Pain Score of 1-3, CPOT 1-2 Moderate Pain = Pain Score of 4-6, CPOT 3-4 Severe Pain = Pain Score of 7-10, CPOT 5-8 documented in this encounter Care Teams Reservation Clerk Relationship Specialty Start Date End Date Anival Ames MD PCP - General Emergency Medicine 08/17/20 documented as of this encounter
--- OUTSIDE RECORDS SUMMARY | 2024-09-18 09:14 | XMS_ITS | Encounter Summary ---
[facility] Address [address] [place] [address] Care Team Providers Care Railway Signal Technician Name Role Phone Anival Ames MD Primary Care Provider [phone] Reason for Visit * Reason Onset Date Comments Results 05/02/2023 Encounter Details Date Type Department Care Team (Late st Contact Info) Description 05/02/2023 Telephone [facility] [address] [phone] Jacek Walters MD [address] [place] [address] Results Social History Tobacco Use Types Packs/Day Years [...] things needed for daily living? No 05/10/2023 [place] Depression Scale Answer Date Recorded Retired [place] Depression Score 2 07/03/2023 Retired EPD Scale: [...] GED or equivalent No 05/10/2023 Preferred Language Thai 05/10/2023 PHQ-2 Answer Date Recorded Retired PHQ-9: Brief Depression Severity Measure Score 0 05/10/2023 Comments Yes Sex and Gender Information Value Date Recorded Sex Assigned at Not on file Legal Sex Female 4:02 PM EST Gender Identity Not on file Sexual Orientation Not on file Occupation Industry Job Start Date Job End Date STUDENT Not on file Not on file Not on file documented as of this encounter Miscellaneous Notes * Telephone Encounter - Zoila Nino MA - 05/02/2023 1:43 PM EDT Spoke with pt and gave results of GBS * Telephone Encounter - Deon Brantley RegSched Rep - 05/02/2023 1:22 PM EDT Patient calling about strep B results. Thanks documented in this encounter Plan of Treatment Not on file documented as of this encounter Visit Diagnoses Not on filedocumented in this encounter Care Teams Railway Signal Technician Relationship Specialty Start Date End Date Anival Ames MD PCP - General Emergency Medicine 08/17/20 documented as of this encounter
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
--- OUTSIDE RECORDS SUMMARY | 2024-09-18 09:14 | XMS_ITS | Encounter Summary ---
[facility] Address [address] [place] [address] Care Team Providers Care Spectrographer Name Role Phone Anival Ames MD Primary Care Provider [phone] Encounter Details Date Type Department Care Team (Late st Contact Info) Description 07/31/2023 10:20 AM EDT Office Visit [facility] OBGYN [address] [place] [address] Jacek Walters MD [address] [facility] [address] [place] [address] Abnormal uterine bleeding (AUB) (Primary Dx) Social History Tobacco Use Types Packs/Day Years [...] things needed for daily living? No 05/10/2023 [place] Depression Scale Answer Date Recorded Retired [place] Depression Score 2 07/03/2023 Retired EPD Scale: [...] GED or equivalent No 05/10/2023 Preferred Language Djiboutian 05/10/2023 PHQ-2 Answer Date Recorded Retired PHQ-9: [...] Sign Reading Time Taken Comments Blood Pressure 118/70 07/31/2023 10:15 AM EDT Pulse - - Temperature - - Respiratory Rate - - Oxygen Saturation - - Inhaled Oxygen Concentration - - Weight 92.5 kg (204 lb) 07/31/2023 10:15 AM EDT Height 175.3 cm (5' 9.02 ) 07/31/2023 10:15 AM E DT Body Mass Index 30.11 07/31/2023 10:15 AM EDT documented in this encounter Progress Notes * Jacek Walters MD - 07/31/2023 10:20 AM EDT Images from the original note were not included. No chief complaint on file. Subjective HPI Geovani Cleary is a 22 y.o. female, , who presents for IUD check follow up. She had a Mirena placed on 07/03/2023. Since the IUD placement, the patient reports back pain and has bled since insertion . She has not had a period since the IUD was placed. The additional following portions of the patient's history were reviewed and updated as appropriate: allergies and current medications. Did the patient have u/s today? Yes. Findings showed IUD had correct placement. I have personally evaluated the U/S and agree with the findings. Jacek Walters MD Review of Systems All other systems reviewed and are negative. I have reviewed and agree with the HPI, ROS, and historical information as entered above. Jacek Walters MD Objective BP 118/70 Ht 175.3 cm (69.02 ) Wt 92.5 kg (204 lb) No BMI 30.11 kg/m?? Physical Exam Vitals and nursing note reviewed. Exam conducted with a road oiling truck driver present. Constitutional: Appearance: She is well-developed. HENT: Head: Normocephalic and atraumatic. Cardiovascular: Rate and Rhythm: Normal rate and regular rhythm. Pulmonary: Effort: Pulmonary effort is normal. Breath sounds: Normal breath sounds. Abdominal: Palpations: Abdomen is soft. Abdomen is not rigid. Genitourinary: Labia: Right: No rash, tenderness or lesion. Left: No rash, tenderness or lesion. Vagina: Normal. No lesions. Cervix: No cervical motion tenderness, discharge, lesion or cervical bleeding. Uterus: Normal. Not enlarged, not fixed and not tender. Adnexa: Right: No mass or tenderness. Left: No mass or tenderness. Rectum: No external hemorrhoid. Comments: Supervisor Title Present Musculoskeletal: Cervical back: Normal range of motion. Neurological: Mental Status: She is alert and oriented to person, place, and time. Psychiatric: Behavior: Behavior normal. Assessment & Plan Assessment Problem List Items Addressed This Visit None Visit Diagnoses Abnormal uterine bleeding (AUB) - Primary Relevant Medications medroxyPROGESTERone (Provera) 10 MG tablet IUD string see but AUB noted x 1 mo and we will rx Provera 10 Plan Return to office PRN No follow-ups on file. Jacek Walters MD 07/31/2023 documented in this encounter Plan of Treatment Not on file documented as of this encounter Visit Diagnoses Diagnosis Abnormal uterine bleeding (AUB)- Primary documented in this encounter Care Teams Spectrographer Relationship Specialty Start Date End Date Anival Ames MD PCP - General Emergency Medicine 08/17/20 documented as of this encounter
--- OUTSIDE RECORDS SUMMARY | 2024-09-18 09:14 | XMS_ITS | Encounter Summary ---
[facility] Address [address] [place] [address] Care Team Providers Care Product Planner Name Role Phone Anival Ames MD Primary Care Provider [phone] Reason for Visit * Reason Comments Routine Visit Encounter Details Date Type Department Care Team (Late st Contact Info) Description 05/03/2023 10:40 AM EDT Routine [facility] OBGYN [address] [address] Jacek Walters MD [address] [place] [address] GA: [id number] Social History Tobacco Use Types Packs/Day Years Used Date Smoking Tobacco: Never Smokeless Tobacco: Never Alcohol Use Standard Drinks/Week Comments No 0 (1 standard drink = 0.6 oz pur e alcohol) AUDIT-C Answer Date Recorded Q1: How often do you have a drink containing alcohol? Never 04/29/2023 Q2: How many drinks containi ng alcohol do you have on a typical day when you are drinking? Patient does not drink Q3: How often do you have si x or more drinks on one occasion? Never 04/29/2023 Overall Financial Resource Strain (CARDIA) Answe r Date Recorded How hard is it for you to pa y for the very basics like food, housing, medical care, and heating? Not very hard 04/29/2023 PHQ-2 Answer Date Recorded Retired PHQ-9: Brief Depression Severity Measure Score 0 04/29/2023 Exercise Vital Sign Answer Date Recorde d On average, how many days pe r week do you engage in moderate to strenuous exercise (like a brisk walk)? 5 days 04/29/2023 On average, how many minutes do you engage in exercise at this level? 20 min 04/29/2023 Hunger Vital Sign Answer Date Recorded Within the past 12 months, y ou worried that your food would run out before you got the money to buy more. Never true 04/29/20 23 Within the past 12 months, t he food you bought just didn't last and you didn't have money to get more. Never true 04/29/2023 PRAPARE - Transportation Answer Date Re corded In the past 12 months, has l ack of transportation kept you from medical appointments or from getting medications? No 11/2022 In the past 12 months, has l ack of transportation kept you from meetings, work, or from getting things needed for daily living? No 04/29/2023 [place] Depression Scale Answer Date Recorded Retired [place] Depression Score 0 06/29/2018 Retired EPD Scale: Thought of Harming Self 06/29/2018 Comments Yes Sex and Gender Information Value [...] Sign Reading Time Taken Comments Blood Pressure 128/80 05/03/2023 11:07 AM EDT Pulse - - Temperature - - Respiratory Rate - - Oxygen Saturation - - Inhaled Oxygen Concentration - - Weight 102 kg (225 lb) 05/03/2023 11:07 AM EDT Height - - Body Mass Index 33.23 04/29/2023 10:59 PM EDT documented in this encounter Progress Notes * Jacek Walters MD - 05/03/2023 10:40 AM EDT Images from the original note were not included. OB FOLLOW UP CC- Here for care of Geovani Cleary is a 22 y.o. 37w1d patient being seen today for her obstetrical follow upvisit. Patient reports low back pain. She denies dysuria., numbness in both hands., nausea without vomiting vaginal pressure/pain., and cramping-lost mucus plug. 04/29/23 patient went to L&D to rule out labor. Patient states she was 4 cm. Her care is complicated by (and status) : Patient Active Problem List Diagnosis Encounter for IUD removal Obesity (BMI 30-39.9) Screening for cervical cancer Vaginal bleeding in Placenta previa antepartum False labor before 37 completed weeks of gestation during in third trimester, antepartum GBS Status: Group B Strep Culture Date Value Ref Range Status 05/28/2018 Final No Group B Streptococcus Isolated from Broth Culture Strep Gp B Culture Date Value Ref Range Status 04/24/2023 Positive (A) Negative Final Comment: Centers for Disease Control and Prevention (CDC) and [place] [employer] of Obstetricians and Gynecologists (ACOG) guidelines for prevention of group B streptococcal (GBS) disease specify co-collection of a vaginal and rectal swab specimen to maximize sensitivity of GBS detection. Per the CDC and ACOG, swabbing both the lower vagina and rectum substantially increases the yield of detection compared with sampling the vagina alone. Penicillin G, ampicillin, or cefazolin are indicated for intrapartum prophylaxis of GBS colonization. Reflex susceptibility testing should be performed prior to use of clindamycin only on GBS isolates from penicillin-allergic women who are considered a high risk for anaphylaxis. Treatment with vancomycin without additional testing is warranted if resistance to clindamycin is noted. No Known Allergies Her Delivery Plan is: IOL scheduled 05/24/23 today: no Non Stress Test: No. ROS - Patient Reports : Nausea and cramping, low back pain, vaginal pressure Patient Denies: Loss of Fluid, Vaginal Spotting, Vision Changes, Headaches, Vomiting , Contractions, and Epigastric pain Movement : normal All other systems reviewed and are negative. The additional following portions of the patient's history were reviewed and updated as appropriate: allergies and current medications. I have reviewed and agree with the HPI, ROS, and historical information as entered above. Jacek Walters MD EXAM: 3 to Vitals BP: 128/80 Weight: 102 kg (225 lb) Heart Rate: 145 Urine Glucose Read-only: Negative Urine Protein Read-only: Negative Assessment and Plan Problem List Items Addressed This Visit Endocrine and Metabolic Obesity (BMI 30-39.9) - Primary Overview BMI 33 Genitourinary and Reproductive Screening for cervical cancer Overview Pap smear 05/20/2022 was negative; HPV HR screen negative. STD screen negative. Other Visit Diagnoses care in third trimester Relevant Orders POC Glucose, Urine, Qualitative, Dipstick (Completed) POC Protein, Urine, Qualitative, Dipstick (Completed) at 37w1d status reassuring. Reviewed Pre-eclampsia signs/symptoms Delivery options reviewed with patient Signs of labor reviewed Kick counts reviewed Activity and Exercise discussed. Return in about 1 week (around 05/10/2023). Jacek Walters MD 05/03/2023 documented in this encounter Plan of Treatment Not on file documented as of this encounter Procedures Procedure Name Priority Date/Time Associated Diagnosis Comments POCT GLUCOSE, URINE, QUALITATIVE, DIPSTICK Routine 05/03/2023 11:08 AM EDT care in third trimester POCT PROTEIN, URINE, QUALITATIVE, DIPSTICK Routine 05/03/2023 11:08 AM EDT care in third trimester documented in this encounter Results * POC Glucose, Urine, Qualitative, Dipstick (05/03/2023 11:08 AM EDT) Glucose, UA Negative Negative mg/dL [facility] Urine 05/03/2023 11:0 8 AM EDT Jacek Walters MD POINT OF CARE TEST ORDERABLES F inal Result [facility]
[address] [place] [address], * POC Protein, Urine, Qualitative, Dipstick (05/03/2023 11:08 AM EDT) Protein, POC Negative Negative mg/dL [facility] Lot Number 0 [facility] Expiration Date 0 [facility] Urine 05/03/2023 11:0 8 AM EDT us Jacek Walters MD POINT OF CARE TEST ORDERABLES F inal Result [facility]
[address] [place] [id number], documented in this encounter Visit Diagnoses Diagnosis Obesity (BMI 30-39.9)- Primary Screening for cervical cancer Screening for malignant neoplasm of the cervix care in third trimester documented in this encounter Care Teams Product Planner Relationship Specialty Start Date End Date Anival Ames MD PCP - General Emergency Medicine 08/17/20 documented as of this encounter
--- OUTSIDE RECORDS SUMMARY | 2024-09-18 09:14 | XMS_ITS | Clinical Summary ---
[facility] Address [address] [place] [address] Care Team Providers Care Double Needle Stitcher Name Role Phone Anival Ames MD Primary Care Provider [phone] Allergies No known active allergies Medications medroxyPROGESTER one (Provera) 10 MG tabletIndication s:Abnormal uterine bleeding (AUB) Take 1 tablet by mouth Daily. 30 tablet 2 07/31/2023 Active fluconazole (Diflucan) 150 MG tablet Take 1 tablet by mouth As Needed (yeast) for up to 3 doses. Take one today and repeat every 3 days x 3 doses 3 tablet 1 12/11/2023 Active Active Problems Problem Noted Date Diagnosed Date care following vaginal delivery 05/12 Obesity (BMI 30-39.9) 09/28/2022 Overview (09/28/2022): BMI 33 Resolved Problems Problem Noted Date Diagnosed Date Resolved Date Currently 05/10/2023 False labor before 37 comple norman weeks of gestation during in third trimester, antepartum 04/29/2023 05/12/2023 Vaginal bleeding in 11/13/2022 05/12/2023 Placenta previa antepartum 11/13/2022 0 05/12/2023 09/28/2022 05/12/2023 Overview (10/02/2022): ; Prior 7#15 Boy. Ultrasound 09/28/2022 with 6-week 1/7 viable IUP. Repeat u/s in 2-3 wk. MBT A positive. E. coli UTI on urine culture. Treated with Macrobid Screening for cervical cancer 09/28/2022 05/12/2023 Overview (09/28/2022): Pap smear 05/20/2022 was negative; HPV HR screen negative. STD screen negative. Encounter for IUD removal 03/30/2022 Overview (03/30/2022): 03/30/2022 removal of Mirena IUD inserted 06/2018; wishes to conceive. Iron deficiency anemia 06/29/201805/04 Gestational hypertension wit hout significant proteinuria, 06/29/2018 05/04/2021 Spontaneous vaginal delivery 06/27/2018 05/04/2021 Decreased movement 04/07/201804/2021 Immunizations Name Administration Dates Next Due DTaP, Unspecified 02/14/2005,04/02/2002,09/07/20 00,02/18/2000 Hep B, Adolescent or Pediatric 02/14/2005,2001,09/07/2000 Hib (PRP-T) 04/02/2002,09/07/2000,02/18/2000 IPV 02/14/2005,04/02/2002,09/07/2000 ,02/18/2000 MMR 06/02/2005,02/14/2005 Varicella 04/02/2002 Family History 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 Relation Name Comments Coronary artery disease Brother Yosef Cleary Hypertension Brother Yosef Cleary Hypertension Father Narciso Cleary Hypertension Maternal Grandfather Pio Ramona Hypertension Paternal Grandfather Narciso Cleary Relation Name Status Comments Brothyony Cleary Maternal Grandfather Pio Cleary Paternal Grandfather Narciso Cleary Social History Tobacco Use Types Packs/Day Years [...] things needed for daily living? No 05/10/2023 [place] Depression Scale Answer Date Recorded Retired [place] Depression Score 2 07/03/2023 Retired EPD Scale: Thought of Harming Self 07/03/2023 Abuse Screen Answer Date Recorded Unsafe at Home or Work/School Not on file Feels Threatened by Someone? Not on file Does Anyone Keep You from Co ntacting Others or Doint Things Outside the Home? Not on file 05/10/2024 Physical Sign of Abuse Present Not on file 0 05/10/2024 Housing Stability Answer Date Recorded Current Living Arrangements Not on file 04/28 Potentially Unsafe Housing Conditions Not on lacy e 05/10/2024 Family and Community Support Answer Arcenio e Recorded Help with Day-to-Day Activities Not on file 05/10/2024 Lonely or Isolated Not on file 05/10/2024 Employment Answer Date Recorded Do you want help finding or keeping work or a shanita b? Not on file 05/10/2024 Disabilities Answer Date Recorded Concentrating, Remembering, or Making Decisions Difficulty Not on file 05/10/2024 Doing Errands Independently Difficulty Not on fi le 05/10/2024 Education Answer Date Recorded Help with school or training? Not on file Preferred Language Not on file 05/10/2024 PHQ-2 Answer Date Recorded Retired PHQ-9: Brief Depression Severity Measure Score 0 05/10/2023 Comments No Sex and Gender Information Value Date Recorded Sex Assigned at Not on file Legal Sex Female 4:02 PM EST Gender Identity Not on file Sexual Orientation Not on file Occupation Industry Job Start Date Job End Date STUDENT Not on file Not on file Not on file Last Filed Vital Signs Vital Sign Reading Time Taken Comments Blood Pressure 118/64 12/11/2023 2:58 PM EST Pulse 65 05/12/2023 8:06 AM EDT Temperature 36.4 ??C (97.6 ??F) 05/12/2023 8:06 AM ED T Respiratory Rate 16 05/12/2023 8:06 AM EDT Oxygen Saturation 100% 04/17/2022 3:36 PM EDT Inhaled Oxygen Concentration - - Weight 94.1 kg (207 lb 6.4 oz) 12/11/2023 2:58 P M EST Height 175.3 cm (5' 9 ) 12/11/2023 2:58 PM EST Body Mass Index 30.63 12/11/2023 2:58 PM EST Plan of Treatment Health Maintenance Due Date Last Done Comments BMI FOLLOWUP 1999 HPV VACCINES (1 - 3-dose series) 2014 ANNUAL PHYSICAL 06/26/2018 TDAP/TD VACCINES (1 - Tdap) 2018 Annual Gynecologic Pelvic and Breast Exam 01/19/2023 01/18/2022 INFLUENZA VACCINE 05/29/2024 COVID-19 Vaccine ( - season) 2024 CHLAMYDIA SCREENING 12/11/2024 12/11/2023, 09/28/2022, 05/04/2021, Additional history exists PAP SMEAR 01/25/2025 01/25/2022 HEPATITIS C SCREENING Completed 09/28/2022, 018 Pneumococcal Vaccine 0-64 Aged Out No longer eligible based on patient's age to complete this topic Procedures Procedure Name Priority Date/Time Associated Diagnosis Comments VAGINITIS PLUS (VG+) WITH??ONELIA??(SIX SPECIES), NUSWAB Routine 12/11/2023 3:45 PM EST Vaginal irritation OBSTETRIC PANEL Routine 09/28/2022 10:20 AM EST from Last 3 Months or Most Recently Relevant to Health Maintenance Results * NuSwab VG+, Onelia 6sp (12/11/2023 3:45 [...] (AMBULATORY) - 12/14/2023 6:13 AM EST Test(s) 419936-Sujtfbs albicans, MICHAEL; 148634-Rfeqtmm glabrata, MICHAEL; 667372-U parapsilosis/tropicalis; 961582-Ftqxuzc lusitaniae, MICHAEL; 569180-Zaswgrf krusei, MICHAEL was developed and its performance characteristics determined by [facility]. It has not been cleared or approved by the Food and Drug Administration. Performed at: ??01 - [address] ??[id number] Russet Repairer: Yojana Miranda MD, Phone: ??[phone] Patient Fasting: ??N Linda Chavarria WATERSHED ENGINEER PATHOLOGY/CYTOLOGY ORDERA BLES Final Result [facility] (AMBULATORY) [address] [place] [address], [facility] [address] [place] [address], * (ABNORMAL) Obstetric Panel (09/28/2022 10:20 AM EST) Hepatitis B Surface Ag Negative Negative [facility] Hep C Virus Ab <0.1 0.0 - 0.9 s/co ratio [facility] Comment: ?Negative: ? < 0.8 ? Indeterminate: 0.8 - 0.9 ?Positive: ? > 0.9 HCV antibody alone does not differentiate between previous resolved infection and active infection. The CDC and current clinical guidelines recommend that a positive HCV antibody result be followed up with an HCV RNA test to support the diagnosis of acute HCV infection. [facility] offers Hepatitis C Virus (HCV) RNA, Diagnosis, MICHAEL (430252) and Hepatitis C Virus (HCV) Antibody with reflex to Quantitative Real-time PCR (723758). RPR Non Reactive Non Reactive [facility] Rubella Antibodies, IgG 4.98 Immune >0.99 index [facility] Comment: ?Non-immune ? <0.90 ?Equivocal ??0.90 - 0.99 ?Immune ? >0.99 ABO Type A [facility] Rh Factor Positive [facility] Comment: Please note: Prior records for this patient's ABO / Rh type are not available for additional verification. Antibody Screen Negative Negative [facility] WBC 11.0(H) 3.4 - 10.8 x10E3/uL [facility] RBC 4.07 3.77 - 5.28 x10E6/uL [facility] Hemoglobin 12.5 11.1 - 15.9 g/dL [facility] Hematocrit 36.9 34.0 - 46.6 % [facility] MCV 91 79 - 97 fL [facility] MCH 30.7 26.6 - 33.0 pg [facility] MCHC 33.9 31.5 - 35.7 g/dL [facility] RDW 11.5(L) 11.7 - 15.4 % [facility] Platelets 264 150 - 450 x10E3/uL [facility] Neutrophil Rel % 76 Not Estab. % [facility] Lymphocyte Rel % 15 Not Estab. % [facility] Monocyte Rel % 6 Not Estab. % [facility] Eosinophil Rel % 2 Not Estab. % [facility] Basophil Rel % 0 Not Estab. % [facility] Neutrophils Absolute 8.4(H) 1.4 - 7.0 x10E3/uL [facility] Lymphocytes Absolute 1.6 0.7 - 3.1 x10E3/uL [facility] Monocytes Absolute 0.7 0.1 - 0.9 x10E3/uL [facility] Eosinophils Absolute 0.2 0.0 - 0.4 x10E3/uL [facility] Basophils Absolute 0.0 0.0 - 0.2 x10E3/uL [facility] Immature Granulocyte Rel % 1 Not Estab. % [facility] Immature Grans Absolute 0.1 0.0 - 0.1 x10E3/uL [facility] 09/28/2022 10:2 0 AM EST 09/29/2022 Narrative [facility] (AM[facility]ATORY) - 09/29/2022 10:11 AM EST Performed at: ??01 - [facility] [address] ??[id number] Russet Repairer: Ortiz Heath PhD, Phone: ??[phone] Patient Fasting: ??N us Roland Pinzon MD LAB BLOOD ORDERABLES Final Result [facility] (AMBULATORY) [address] [place] [address], [facility] [address] [place] [id number], from Last 3 Months or Most Recently Relevant to Health Maintenance Insurance PPO Advance Directives * CPR (Attempt to Resuscitate) (Latest Code Status on File) Date Activated Date Inactivated Comments 05/10/2023 10:26 PM 05/12/2023 4:57 PM Question Answer Comments Code Status (Patient has no pulse and is not breathing): CPR (Attempt to Resuscitate) Medical Interventions (Patie nt has pulse or is breathing): Full Support * CPR (Attempt to Resuscitate) Date Activated Date Inactivated Comments 06/29/2018 4:16 PM 06/30/2018 2:29 PM Question Answer Comments Code Status (Patient has no pulse and is not breathing): CPR (Attempt to Resuscitate) Medical Interventions (Patie nt has pulse or is breathing): Full * CPR (Attempt to Resuscitate) Date Activated Date Inactivated Comments 06/26/2018 11:38 PM 06/29/2018 4:15 PM Question Answer Comments Code Status (Patient has no pulse and is not breathing): CPR (Attempt to Resuscitate) Medical Interventions (Patie nt has pulse or is breathing): Full Care Teams Double Needle Stitcher Relationship Specialty Start Date End Date Anival Ames MD PCP - General Emergency Medicine 08/17/20
--- OUTSIDE RECORDS SUMMARY | 2024-09-18 09:14 | XMS_ITS | Encounter Summary ---
[facility] [address] [place] [address] Care Team Providers Care Rn Cardiac Cath Name Role Phone Anival Ames MD Primary Care Provider [phone] Encounter Details Date Type Department Care Team (Late st Contact Info) Description 12/12/[address] [facility] OBGYN [address] [address] Linda Chavarria, DESIGN TRANSFERRER [address] [facility] [address] [place] [address] Social History Tobacco Use Types Packs/Day Years [...] things needed for daily living? No 05/10/2023 [place] Depression Scale Answer Date Recorded Retired [place] Depression Score 2 07/03/2023 Retired EPD Scale: [...] GED or equivalent No 05/10/2023 Preferred Language Telugu 05/10/2023 PHQ-2 Answer Date Recorded Retired PHQ-9: [...] encounter Miscellaneous Notes * Telephone Encounter - Marysol Martinez RN - 12/12/2023 8:54 AM EST [facility]. Will need to confirm which UTC she went to. Will need to call UTC to get urinalysis/ culture results to fax to urology. * Telephone Encounter - Yamila Walls RegSched Rep - 12/12/2023 8:44 AM EST UROLOGY REFERRAL ROUTED BACK: ROUTING BACK TO REF. PROVIDER-PER UROLOGY PROVIDERS, PT WILL NEED TWOURINE CULTURES WITHIN LAST SIX MONTHS FOR DX: UTI. PLEASE ADVISE ON NEXT STEPS documented in this encounter Plan of Treatment Not on file documented as of this encounter Visit Diagnoses Not on filedocumented in this encounter Care Teams Rn Cardiac Cath Relationship Specialty Start Date End Date Anival Ames MD PCP - General Emergency Medicine 08/17/20 documented as of this encounter
--- OUTSIDE RECORDS SUMMARY | 2024-09-18 09:14 | XMS_ITS | Encounter Summary ---
[facility] Address [address] [place] [address] Care Team Providers Care Devops Architect Name Role Phone Anival Ames MD Primary Care Provider [phone] Encounter Details Date Type Department Care Team (Late st Contact Info) Description 05/08/[address] [facility] OBGYN [address] [place] [address] Jacek Walters MD [address] [facility] [address] [place] [address] care, subsequent , third trimester (Primary Dx) Social History Tobacco Use Types [...] things needed for daily living? No 05/10/2023 [place] Depression Scale Answer Date Recorded Retired [place] Depression Score 0 05/11/2023 Retired EPD Scale: [...] GED or equivalent No 05/10/2023 Preferred Language Vincentian 05/10/2023 PHQ-2 Answer Date Recorded Retired PHQ-9: [...] on file documented as of this encounter Plan of Treatment Not on file documented as of this encounter Visit Diagnoses Diagnosis care, subsequent , third trimester- Primary documented in this encounter Care Teams Devops Architect Relationship Specialty Start Date End Date Anival Ames MD PCP - General Emergency Medicine 08/17/20 documented as of this encounter
--- OUTSIDE RECORDS SUMMARY | 2024-09-18 09:14 | XMS_ITS | Encounter Summary ---
[facility] [address] [place] [address] Care Team Providers Care Birth Certificate Clerk Name Role Phone Anival Ames MD Primary Care Provider [phone] Encounter Details Date Type Department Care Team (Late st Contact Info) Description 05/14/2023 Telephone [facility] OBGYN [address] [place] [address] Jacek Walters MD [address] [facility] [address] [place] [address] Social History Tobacco Use Types Packs/Day Years [...] things needed for daily living? No 05/10/2023 [place] Depression Scale Answer Date Recorded Retired [place] Depression Score 2 07/03/2023 Retired EPD Scale: [...] GED or equivalent No 05/10/2023 Preferred Language [place] 05/10/2023 PHQ-2 Answer Date Recorded Retired PHQ-9: [...] encounter Miscellaneous Notes * Telephone Encounter - Diane Kent RegSched Rep - 05/14/2023 2:01 PM EDT PT NEEDS TO RE-SCHEDULE OB FOLLOW UP FOR 6 WEEK POST- VISIT WITH - PT DELIVERED VAGINALLY 05/10/2023- NO APPTS AVAILABLE WITHIN TIMEFRAME NEEDED- PLEASE ADVISE PT ON SCHEDULING -FINE WITH CALLBACK AT ANYTIME, FINE WITH LVM. documented in this encounter Plan of Treatment Not on file documented as of this encounter Visit Diagnoses Not on filedocumented in this encounter Care Teams Birth Certificate Clerk Relationship Specialty Start Date End Date Anival mAes MD PCP - General Emergency Medicine 08/17/20 documented as of this encounter
--- OUTSIDE RECORDS SUMMARY | 2024-09-18 09:14 | XMS_ITS | Encounter Summary ---
[facility] Address [address] [place] [address] Care Team Providers Care Student Union Consultant Name Role Phone Anival Ames MD Primary Care Provider [phone] Reason for Visit * Auth/Cert (Routine) Specialty Diagnoses / Procedures Referred By Contvarun t Referred To Contact Diagnoses Currently Referral ID Status Reason Start Date Expiration Date Visits Re quested Visits Authorized [id number] 1 1 Encounter Details Date Type Department Care Team (Late st Contact Info) Description 05/10/2023 3:27 PM EDT Anesthesia Event [facility]OR DELIVERY [address] [place] [address] Harvey Lewis, DO [address] [place] [address] Sierra Montano, MINERAL ENGINEER [address] [place] [address] Anesthesia Record Procedure Summary Procedure Name Responsible Anesthesiologist Anesthesia Start Time Anesthesia Stop Time LABOR ANALGESIA Harvey Lewis DO 05/10/23 1527 1813 Events Date Time Event Comment 05/10/2023 1515 1527 An Start The patient was reevaluated immediately before moderate or deep sedation use and before anesthesia induction. 1527 Face Time 1813 An Stop Meds Name Total lidocaine 1.5%-EPINEPHrine 1:200,000 (XY LOCAINE W/EPI) injection 3 mL fentaNYL (SUBLIMAZE) injection 100 mcg ropivacaine (NAROPIN) 0.5 % 5 mL in sodi um chloride 0.9 % 5 mL epidural 10 mL ropivacaine (NAROPIN) 0.2 % injection 36 .75 mL * Agents No agents on file. * Blood No blood administrations on file. Lines, Drains, and Airways Type Details Placement Removal Peripheral IV Placement Date: 05/10/23; Placement Time: 1015; Catheter Size: 18 G; Orientation: Distal, Posterior, Right; Location: Forearm; Site Prep: Chlorhexidine; Local Anes: None; Inserted by: NEDRA Osorio; Insertion Attempts: 1; Patient Tolerance: Tolerated well; Removal Date: 05/11/23; Removal Time: 0205 05/10/23 1015 by Hailee Chang RN 05/11/23 0205 by Jenny Mendoza RN Epidural Placement Date: 05/10/23; Placement Time: 154 (created via procedure documentation); Removal Date: 05/10/23; Removal Time: 19305/10/23 1547 by Sierra Montano CRNA 05/10/23 193 by Hailee Chang RN Urethral Catheter Placement Date: 05/10/23; Placement Time: 1557; Inserted by: NEDRA Osorio; Type: Silicone; Balloon Size: 10 mL; Urine Returned: Yes; Removal Date: 05/10/23; Removal Time: 174; Removal Reason: Per protocol 05/10/23 1557 by Hailee Chang RN 05/10/23 1747 by Hailee Chang RN documented in this encounter Social History Tobacco Use Types Packs/Day Years [...] things needed for daily living? No 05/10/2023 [place] Depression Scale Answer Date Recorded Retired [place] Depression Score 0 05/11/2023 Retired EPD Scale: [...] GED or equivalent No 05/10/2023 Preferred Language Peruvian 05/10/2023 PHQ-2 Answer Date Recorded Retired PHQ-9: [...] on file documented as of this encounter OR Notes * Anesthesia Postprocedure Evaluation - Sierra Montano CRNA - 05/11/2023 1:51 PM EDT Patient: Geovani Cleary Procedure Summary Date: 05/10/23 Room / Location: Anesthesia Start: 1526 Anesthesia Stop: 1812 Procedure: LABOR ANALGESIA Diagnosis: Scheduled Providers: Provider: Harvey Lewis DO Anesthesia Type: epidural ASA Status: 2 Anesthesia Type: epidural Vitals Vitals Value Taken Time BP 122/57 05/11/23 0718 Temp 97.7 ??F (36.5 ??C) 05/11/23 0718 Pulse 70 05/11/23 0718 Resp 16 05/11/23 0718 SpO2 Post Anesthesia Care and Evaluation Patient location during evaluation: bedside Patient participation: complete - patient participated Level of consciousness: awake and alert Pain management: adequate Airway patency: patent Anesthetic complications: No anesthetic complications Cardiovascular status: acceptable Respiratory status: acceptable Hydration status: acceptable Post Neuraxial Block status: Motor and sensory function returned to baseline and No signs or symptoms of PDPH * Anesthesia Procedure Notes - Sierra Montano CRNA - 05/10/2023 3:47 PM EDTAssociated Order(s): Labor Epidural Labor Epidural Patient reassessed immediately prior to procedure Patient location during procedure: floor Performed By [facility]: Sierra Montano CRNA Preanesthetic Checklist Completed: patient identified, IV checked, site marked, risks and benefits discussed, surgical consent, monitors and equipment checked, pre-op evaluation and timeout performed Prep: Pt Position:sitting Cupola Tender Helper:cap, gloves, mask and sterile barrier Prep:DuraPrep Monitoring:blood pressure monitoring Epidural Block Procedure: Approach:midline Guidance:landmark technique and palpation technique Location:L3-L4 Needle Type:Tuohy Needle Gauge:17 G Loss of Resistance Medium: air Loss of Resistance: 6cm Cath Depth at skin:11 cm Paresthesia: none Aspiration:negative Test Dose:negative Number of Attempts: 1 Post Assessment: Dressing:occlusive dressing applied and secured with tape Pt Tolerance:patient tolerated the procedure well with no apparent complications Complications:no * Anesthesia Preprocedure Evaluation - Sierra Montano CRNA - 05/10/2023 3:15 PM EDT Anesthesia Evaluation Patient summary reviewed and Nursing notes reviewed NPO Solid Status: > 6 hours NPO Liquid Status: < 2 hours Airway Mallampati: II TM distance: >3 FB Neck ROM: full Dental Pulmonary - negative pulmonary ROS Cardiovascular - negative cardio ROS Neuro/Psych- negative ROS GI/Hepatic/Renal/Endo Musculoskeletal (-) negative ROS Abdominal Substance History - negative use PRIMARY THERAPIST (+) Other - negative ROS Anesthesia Plan ASA 2 epidural Anesthetic plan, risks, benefits, and alternatives have been provided, discussed and informed consent has been obtained with: patient. Plan discussed with attending. CODE STATUS: documented in this encounter Plan of Treatment Not on file documented as of this encounter Procedures Procedure Name Priority Date/Time Associated Diagnosis Comments [facility] AN LABOR EPIDURAL KIT Routine 05/10/2023 3:47 PM EDT documented in this encounter Results * [facility] AN LABOR EPIDURAL KIT (05/10/2023 3:47 PM EDT) Narrative Sierra Montano CRNA - 05/10/2023 3:47 PM EDT Sierra Montano CRNA ? 05/10/2023 ??3:47 PM Labor Epidural Patient reassessed immediately prior to procedure Patient location during procedure: floor Performed By [facility]: Sierra Montano CRNA Preanesthetic Checklist Completed: patient identified, IV checked, site marked, risks and benefits discussed, surgical consent, monitors and equipment checked, pre-op evaluation and timeout performed Prep: Pt Position:sitting Cupola Tender Helper:cap, gloves, mask and sterile barrier Prep:DuraPrep Monitoring:blood pressure monitoring Epidural Block Procedure: Approach:midline Guidance:landmark technique and palpation technique Location:L3-L4 Needle Type:Tuohy Needle Gauge:17 G Loss of Resistance Medium: air Loss of Resistance: 6cm Cath Depth at skin:11 cm Paresthesia: none Aspiration:negative Test Dose:negative Number of Attempts: 1 Post Assessment: Dressing:occlusive dressing applied and secured with tape Pt Tolerance:patient tolerated the procedure well with no apparent complications Complications:no Sierra Montano CRNA ANESTHESIA TANIA EVANS Final Result documented in this encounter Visit Diagnoses Not on filedocumented in this encounter Administered Medications Inactive Administered Medications - up to 3 most recent administrations Medication Order MAR Action Action Date Dose Rate Site fentaNYL citrate (PF) (SUBLIMAZE) injection Epidural, As Needed, Starting on Alejandrina 05/10/23 at 1541 Given 05/10/2023 3:41 PM EDT 100 mcg lidocaine-EPINEPHrine (XYLOCAINE W/EPI) 1.5 %-1:639651 injection Epidural, As Needed, Starting on Alejandrina 05/10/23 at 1538 Given 05/10/2023 3:38 PM EDT 3 mL ropivacaine (NAROPIN) 0.2 % injection 15 mL/hr, Epidural, Continuous, Starting on Alejandrina 05/10/23 at 1615, Anesthesiologist To Adjust Rate As Needed. RN May Replace Epidural Infusion Fluids As Ordered New Bag 05/10/2023 3:46 PM EDT 15 mL/hr 15 mL/hr ropivacaine (NAROPIN) 0.5 % 5 mL in sodium chloride 0.9 % 5 mL epidural Epidural, Continuous PRN, Starting on Alejandrina 05/10/23 at 1545 New Bag 05/10/2023 3:45 PM EDT 10 mL documented in this encounter Care Teams Student Union Consultant Relationship Specialty Start Date End Date Anival Ames MD PCP - General Emergency Medicine 08/17/20 documented as of this encounter
--- OUTSIDE RECORDS SUMMARY | 2024-09-18 09:14 | XMS_ITS | Encounter Summary ---
[facility] Address [address] [place] [address] Care Team Providers Care Cylinder Devalver Name Role Phone Anival Ames MD Primary Care Provider [phone] Reason for Visit * Reason Comments Routine Visit Encounter Details Date Type Department Care Team (Late st Contact Info) Description 05/08/2023 11:20 AM EDT Routine [facility] OBGYN [address] [place] [address] Jacek Walters MD [address] [facility] [address] [place] [address] GA: 37w6d Social History Tobacco Use Types Packs/Day Years [...] things needed for daily living? No 04/29/2023 [place] Depression Scale Answer Date Recorded Retired [place] Depression Score 0 06/29/2018 Retired EPD Scale: [...] Sign Reading Time Taken Comments Blood Pressure 120/80 05/08/2023 11:18 AM EDT Pulse - - Temperature - - Respiratory Rate - - Oxygen Saturation - - Inhaled Oxygen Concentration - - Weight 104 kg (230 lb 3.2 oz) 05/08/2023 11:18 A M EDT Height - - Body Mass Index 33.99 04/29/2023 10:59 PM EDT documented in this encounter Progress Notes * Jacek Walters MD - 05/08/2023 11:20 AM EDT Images from the original note were not included. OB FOLLOW UP CC- Here for care of Geovani Cleary is a 22 y.o. 37w6d patient being seen today for her obstetrical follow upvisit. Patient reports no complaints.. Her care is complicated by (and status) : None Patient Active Problem List Diagnosis Encounter for IUD removal Obesity (BMI 30-39.9) Screening for cervical cancer Vaginal bleeding in Placenta previa antepartum False labor before 37 completed weeks of gestation during in third trimester, antepartum GBS Status: 04/24/2023 Positive Group B Strep Culture Date Value Ref Range Status 05/28/2018 Final No Group B Streptococcus Isolated from Broth Culture Strep Gp B Culture Date Value Ref Range Status 04/24/2023 Positive (A) Negative Final Comment: Centers for Disease Control and Prevention (CDC) and [place] [employer] of Obstetricians and Gynecologists (ACOG) guidelines [...] to clindamycin is noted. No Known Allergies Flu Status: Declines Her Delivery Plan is: IOL US today: no Non Stress Test: No. ROS - Patient Reports : No Problems Patient Denies: Loss of Fluid, Vaginal Spotting, Vision Changes, and Headaches Movement : normal All other systems reviewed and are negative. The additional following portions of the patient's history were reviewed and updated as appropriate: allergies, current medications, past family history, past medical history, past social history, past surgical history, and problem list. I have reviewed and agree with the HPI, ROS, and historical information as entered above. EXAM: /-1 Vitals BP: 120/80 Weight: 104 kg (230 lb 3.2 oz) Heart Rate: 130 Urine Glucose Read-only: Negative Urine Protein Read-only: Negative Assessment and Plan Problem List Items Addressed This Visit None Visit Diagnoses care in third trimester - Primary Relevant Orders POC Protein, Urine, Qualitative, Dipstick (Completed) POC Glucose, Urine, Qualitative, Dipstick (Completed) at 37w6d status reassuring. Reviewed Pre-eclampsia signs/symptoms Reviewed upcoming IOL with patient. Instructions given. Delivery options reviewed with patient Signs of labor reviewed Kick counts reviewed Activity and Exercise discussed. Return in about 1 week (around 05/15/2023). Jacek Walters MD 05/08/2023 documented in this encounter Plan of Treatment Not on file documented as of this encounter Procedures Procedure Name Priority Date/Time Associated Diagnosis Comments POCT PROTEIN, URINE, QUALITATIVE, DIPSTICK Routine 05/08/2023 11:28 AM EDT care in third trimester POCT GLUCOSE, URINE, QUALITATIVE, DIPSTICK Routine 05/08/2023 11:28 AM EDT care in third trimester documented in this encounter Results * POC Glucose, Urine, Qualitative, Dipstick (05/08/2023 11:28 AM EDT) Glucose, UA Negative Negative mg/dL [facility] Urine 05/08/2023 11:2 8 AM EDT Jacek Walters MD POINT OF CARE TEST ORDERABLES F inal Result Performing Organization Address City/[facility]/ZIP Co de Phone Number [facility]
[address] [place] [address], [place] [phone] * POC Protein, Urine, Qualitative, Dipstick (05/08/2023 11:28 AM EDT) Protein, POC Negative Negative mg/dL [facility] Lot Number 0 [facility] Expiration Date 0 [facility] Urine 05/08/2023 11:2 8 AM EDT us Jacek Walters MD POINT OF CARE TEST ORDERABLES F inal Result [facility]
[address] [place] [id number], [place] [phone] documented in this encounter Visit Diagnoses Diagnosis care in third trimester- Primary documented in this encounter Care Teams Cylinder Devalver Relationship Specialty Start Date End Date Anival Ames MD PCP - General Emergency Medicine 08/17/20 documented as of this encounter
--- OUTSIDE RECORDS SUMMARY | 2024-09-18 09:14 | XMS_ITS | Encounter Summary ---
[facility] [address] [place] [address] Care Team Providers Care Focuser Name Role Phone Anival Ames MD Primary Care Provider [phone] Reason for Visit * Diagnostic Imaging (Emergency) - Closed Specialty Diagnoses / Procedures Referred By Contac t Referred To Contact Obstetrics and Gynecology Diagnoses Encounter for IUD insertion Procedures US Non-ob Transvaginal Atilio Dunn MD [address] [facility] [address] [place] [address] Phone: tel: fax: [facility] [place] [address] Phone: tel:[phone] fax:[phone] Referral ID Status Reason Start Date Expiration Date Visits Re quested Visits Authorized [id number] Closed 07/03/2023 07/02/2024 1 1 Encounter Details Date Type Department Care Team (Late st Contact Info) Description 07/03/2023 10:20 AM EDT Ancillary Procedure [facility] [address] [place] [address] Social History Tobacco Use Types Packs/Day Years [...] things needed for daily living? No 05/10/2023 [place] Depression Scale Answer Date Recorded Retired [place] Depression Score 2 07/03/2023 Retired EPD Scale: [...] GED or equivalent No 05/10/2023 Preferred Language Frisian 05/10/2023 PHQ-2 Answer Date Recorded Retired PHQ-9: [...] 10:33 AM EDT Encounter for IUD insertion documented in this encounter Results * US Non-ob Transvaginal (07/03/2023 10:33 AM EDT) Anatomical Region Laterality Modality Body Ultrasound 07/03/2023 10:2 2 AM EDT Narrative 07/03/2023 2:19 PM EDT PAT NAME: ANDERS CLEARY MED REC#: [id number] DA: 2000 PAT GEND: F PAT TYPE: O EXAM GABBY: [id number] REF PHYS ATILIO DUNN Indication ======== IUD [...] endometrial IUD Recommendation Follow-up as clinically indicated. Cardiac Care Unit Nurse: RT Amandeep Díaz, [facility] Physician: Atilio Dunn II, MD, FACOG Electronically signed by: Atilio Dunn II, MD, FACOG at: 14:19 Procedure Note Atilio Dunn MD - 07/03/2023 PAT NAME: ANDERS CLEARY MED REC#: [id number] DA: 2000 PAT GEND: F PAT TYPE: O EXAM GABBY: [id number] REF PHYS ATILIO DUNN Indication ======== IUD [...] endometrial IUD Recommendation Follow-up as clinically indicated. Cardiac Care Unit Nurse: RT Amandeep Díaz, [facility] Physician: Atilio Dunn II, MD, FACOG Electronically signed by: Atilio Dunn II, MD, FACOG at: 14:19 us Atilio Dunn MD IM US ORDERABLES Final Result documented in this encounter Visit Diagnoses Not on filedocumented in this encounter Care Teams Focuser Relationship Specialty Start Date End Date Anival Ames MD PCP - General Emergency Medicine 08/17/20 documented as of this encounter
--- OUTSIDE RECORDS SUMMARY | 2024-09-18 09:15 | XMS_ITS | Encounter Summary ---
[facility] Address [address] [place] [address] Care Team Providers Care Toll Line Mechanic Name Role Phone Anival Ames MD Primary Care Provider [phone] Encounter Details Date Type Department Care Team (Late st Contact Info) Description 11/06/2022 Telephone [facility] OBGYN [address] [facility] [address] [place] [phone] Debi Hinkle, MORTGAGE LOAN SPECIALIST Social History Tobacco Use Types Packs/Day Years Used Date Smoking Tobacco: Never Smokeless Tobacco: Never Alcohol Use Standard Drinks/Week Comments No 0 (1 standard drink = 0.6 oz pur e alcohol) [place] Depression Scale Answer Date Recorded Retired [place] Depression Score 0 06/29/2018 Retired EPD Scale: [...] encounter Miscellaneous Notes * Telephone Encounter - Myra Iraheta MA - 11/08/2022 4:57 PM EST Patient was prescribed Cephalexin, not Levofloxacin. Informed patient it is safe to take Cephalexinwhile . * Telephone Encounter - Alisha Mcclain RN - 11/06/2022 5:04 PM EST Attempted to return patients call, no voicemail box set up, unable to leave message. * Telephone Encounter - Jami Jenkins RegSched Rep - 11/06/2022 2:50 PM EST PT IS 11 WEEKS AND STATES SHE WAS TREATED FOR A UTI AND WAS PRESCRIBED LEVOFLOXACIN AND WANTS TO KNOW IF IT SAFE TO TAKE. PLEASE ADVISE PT. documented in this encounter Plan of Treatment Not on file documented as of this encounter Visit Diagnoses Not on filedocumented in this encounter Care Teams Toll Line Mechanic Relationship Specialty Start Date End Date Anival Ames MD PCP - General Emergency Medicine 08/17/20 documented as of this encounter
--- OUTSIDE RECORDS SUMMARY | 2024-09-18 09:15 | XMS_ITS | Encounter Summary ---
Author Organization [facility] Address [address] [place] [address] Care Team Providers Care Steam Clothes Press Operator Name Role Phone Anival Ames MD Primary Care Provider [phone] Reason for Referral * Diagnostic Imaging (Routine) - Closed Specialty Diagnoses / Procedures Referred By Contact Referred To Contact Obstetrics and Gynecology Diagnoses Vaginal bleeding in Procedures US Ob < 14 Weeks Single or First Gestation Wanda Hylton APRN [address] [place] [address] Phone: tel: fax: [facility] [address] [address] Phone: tel: fax: Referral ID Status Reason Start Date Expiration Date Visits Re quested Visits Authorized [id number] Closed 11/13/2022 11/13/2023 1 1 Encounter Details Date Type Department Care Team (Late st Contact Info) Description 11/13/2022 Telephone [facility] [address] [address] Christine Brothers RegSched Rep Social History Tobacco Use Types Packs/Day Years Used Date Smoking Tobacco: Never Smokeless Tobacco: Never Alcohol Use Standard Drinks/Week Comments No 0 (1 standard drink = 0.6 oz pur e alcohol) [place] Depression Scale Answer Date Recorded Retired [place] Depression Score 0 06/29/2018 Retired EPD Scale: [...] on file documented as of this encounter Progress Notes * Trista Newman MA - 11/13/2022 9:24 AM ESTAddended by: TRISTA NEWMAN on: 11/13/2022 09:24 AM Modules accepted: Orders documented in this encounter Miscellaneous Notes * Telephone Encounter - Trista Newman MA - 11/13/2022 9:17 AM EST Per Mariah: patient needs to come into the office today for U/S and see SHIRT SEWER afterwards. Will also need to get medical records from [facility] (ED). S/w pt she v/u and appt has been made. * Telephone Encounter - Trista Newman MA - 11/13/2022 9:[address] Walters OB pt. 12w5d MBT: A+ Next appt: 11/28/2022 w/ Vern S/w pt she states Sunday she started to have severe vaginal bleeding and she went to the ED Sunday night to [facility] and states TVU was done and they told patient it looked good but was unable to see the placenta. Patient states today she is having light brown vaginal bleeding, cramping and lower back pain. Patient denies: saturating 1 pad <1 hour, blood clots bigger than golf ball in size, recent I/C I told patient I would discuss this with special education paraeducator provider and CB with plan of care. She v/u * Telephone Encounter - Christine Brothers RegSched Rep - 11/13/2022 8:51 AM EST Patient is following up from E/R visit is 12w5d, light bleeding and cramping as well as back pain and would like to discuss documented in this encounter Plan of Treatment Not on file documented as of this encounter Procedures Procedure Name Priority Date/Time Associated Diagnosis Comments US OB < 14 WEEKS SINGLE OR FIRST GESTATION Routine 11/13/2022 11:54 AM EST Vaginal bleeding in documented in this encounter Results * US Ob < 14 Weeks Single or First Gestation (11/13/2022 11:54 AM EST) Anatomical Region Laterality Modality Body Ultrasound 11/13/2022 11:4 4 AM EST Narrative 11/14/2022 7:01 PM EST PAT NAME: ANDERS CLEARY MED REC#: [id number] DA: 2000 PAT GEND: F PAT TYPE: O EXAM GABBY: [id number] REF PHYS WANDA HYLTON Indication ======== follow up ER for bleeding Comparison Studies The findings of this study are compared to the prior ultrasound study dated 10/24/22 Method ======= Voluson E6, Transabdominal ultrasound examination. View: Adequate view ========= Orozco . Number of fetuses: 1 Single intrauterine present Dating ====== LMP on: 08/17/2022 GA by LMP 12 w + 4 d MAURILIO by LMP: 05/24/2023 Method of dating: based on stated MAURILIO GA by prior assessment 12 w + 5 d MAURILIO by prior assessment: 05/23/2023 Ultrasound examination on: 11/13/2022 GA by U/S based upon: CRL GA by U/S 13 w + 5 d MAURILIO by U/S: 05/16/2023 Previous dating: based on stated MAURILIO, selected on 10/24/2022 Agreed MAURILIO of previous datin05/23/2023 Assigned: based on stated MAURILIO, selected on 11/13/2022 Assigned GA 12 w + 5 d Assigned MAURILIO: 05/23/2023 length 280 d Biometry Standard FHR 162 bpm ?57% ?Nicolaides CRL 76.0 mm 13w 5d ?95% ?Hadlock General Evaluation Cardiac activity present. Placenta posterior; previa due to early gestational age . Amniotic fluid normal. Maternal Structures Uterus / Cervix Uterus: Visualized Cervix: Visualized Ovaries / Tubes / Adnexa Rt ovary: Visualized Rt ovary other findings: 2.68 cm simple cyst Lt ovary: Not visualized Impression Viable embryo 12 weeks 5 days. Possible posterior previa due to early age. Recommendation Follow-up as clinically indicated. Cosmetician Apprentice: RT Amandeep Silveira, [facility] Physician: Jacek Walters II, MD, FACOG Electronically signed by: Jacek Walters II, MD, FACOG at: 19:01 Procedure Note Jacek Walters MD - 11/14/2022 PAT NAME: ANDERS CLEARY MED REC#: [id number] DA: 2000 PAT GEND: F PAT TYPE: O EXAM GABBY: [id number] REF PHYS WANDA HYLTON Indication ======== follow up ER for bleeding Comparison Studies The findings of this study are compared to the prior ultrasound studydated 10/24/22 Method ======= Voluson E6, Transabdominal ultrasound examination. View: Adequate view ========= Orozco . Number of fetuses: 1 Single intrauterine present Dating ====== LMP on:08/17/2022 GA by LMP12 w + 4 d MAURILIO by LMP:05/24/2023 Method of dating:based on stated MAURILIO GA by prior [id number] w + 5 d MAURILIO by prior assessment:05/23/2023 Ultrasound examination on:11/13/2022 GA by U/S based upon:CRL GA by U/S13 w + 5 d MAURILIO by U/S:05/16/2023 Previous dating:based on stated MAURILIO, selected on 10/24/2022 Agreed MAURILIO of previous datin05/23/2023 Assigned:based on stated MAURILIO, selected on 11/13/2022 Assigned GA12 w + 5 d Assigned MAURILIO:05/23/2023 d Biometry Standard UWV113 bpm 57% Nicolaides CRL76.0 mm 13w 5d 95% Hadlock General Evaluation Cardiac activity present. Placenta posterior; previa due to early gestational age . Amniotic fluid normal. Maternal Structures Uterus / Cervix Uterus:Visualized Cervix:Visualized Ovaries / Tubes / Adnexa Rt ovary:Visualized Rt ovary other findings:2.68 cm simple cyst Lt ovary:Not visualized Impression Viable embryo 12 weeks 5 days. Possible posterior previa due to earlyage. Recommendation Follow-up as clinically indicated. Cosmetician Apprentice: RT Amandeep Silveira, [facility] Physician: Jacek Walters II, MD, FACOG Electronically signed by: Jacek Walters II, MD, FACOG at: 1719:01 us Wanda Hylton [employer] IMG US ORDERABLES Fi nal Result documented in this encounter Visit Diagnoses Diagnosis Vaginal bleeding in - Primary documented in this encounter Care Teams Steam Clothes Press Operator Relationship Specialty Start Date End Date Anival Ames MD PCP - General Emergency Medicine 08/17/20 documented as of this encounter
--- OUTSIDE RECORDS SUMMARY | 2024-09-18 09:15 | XMS_ITS | Encounter Summary ---
[facility] Address [address] [place] [address] Care Team Providers Care Rest Room Maid Name Role Phone Anival Ames MD Primary Care Provider [phone] Reason for Referral * Diagnostic Imaging (Routine) - Closed Specialty Diagnoses / Procedures Referred By Contac t Referred To Contact Radiology Diagnoses 32 weeks gestation of Procedures US Ob Follow Up Transabdominal Approach Atilio Dunn MD [address] [address] Phone: tel: fax: [facility] [address] [place] [address] Phone: tel: fax: Referral ID Status Reason Start Date Expiration Date Visits Re quested Visits Authorized [id number] Closed 04/03/2023 04/02/2024 1 1 Reason for Visit * Reason Comments Routine Visit 32w6d Encounter Details Date Type Department Care Team (Late Contact Info) Description 04/03/2023 9:10 AM EDT Routine [facility] [address] [place] [address] Atilio Dunn MD [address] [facility] [address] [place] [address] GA: 32w6d Social History Tobacco Use Types Packs/Day Years Used Date Smoking Tobacco: Never Smokeless Tobacco: Never Alcohol Use Standard Drinks/Week Comments No 0 (1 standard drink = 0.6 oz pur e alcohol) [place] Depression Scale Answer Date Recorded Retired [place] Depression Score 0 06/29/2018 Retired EPD Scale: [...] Sign Reading Time Taken Comments Blood Pressure 122/82 04/03/2023 9:12 AM EDT Pulse - - Temperature - - Respiratory Rate - - Oxygen Saturation - - Inhaled Oxygen Concentration - - Weight 102 kg (225 lb) 04/03/2023 9:12 AM EDT Height - - Body Mass Index 34.22 04/17/2022 3:36 PM EDT documented in this encounter Progress Notes * Atilio Dunn MD - 04/03/2023 9:10 AM EDT Images from the original note were not included. OB FOLLOW UP CC- Here for care of Anders Cleary is a 22 y.o. 32w6d patient being seen today for her obstetrical follow upvisit. Patient reports hip pain. Her care is complicated by (and status) : None Patient Active Problem List Diagnosis Encounter for IUD removal Obesity (BMI 30-39.9) Screening for cervical cancer Vaginal bleeding in Placenta previa antepartum Flu Status: Declines TDAP status: declines Rhogam status: was not indicated 28 week labs: Reviewed and normal Ultrasound Today: No Non Stress Test: No. ROS - Patient Reports : No Problems Patient Denies: Loss of Fluid, Vaginal Spotting, Vision Changes, Headaches, Nausea , Vomiting , andContractions Movement : normal All other systems reviewed and are negative. The additional following portions of the patient's history were reviewed and updated as appropriate: allergies and current medications. I have reviewed and agree with the HPI, ROS, and historical information as entered above. Atilio Dunn MD BP 122/82 Wt 102 kg (225 lb) LMP 08/17/2022 BMI 34.22 kg/m?? EXAM: poss SGA Vitals BP: 122/82 Weight: 102 kg (225 lb) Assessment and Plan Problem List Items Addressed This Visit Endocrine and Metabolic Obesity (BMI 30-39.9) Overview BMI 33 Genitourinary and Reproductive Screening for cervical cancer Overview Pap smear 05/20/2022 was negative; HPV HR screen negative. STD screen negative. Gravid and - Primary Overview ; Prior 7#15 Boy. Ultrasound 09/28/2022 with 6-week 11/04 viable IUP. Repeat u/s in 2-3 wk. MBT A positive. E. coli UTI on urine culture. Treated with Macrobid Relevant Orders POC Glucose, Urine, Qualitative, Dipstick POC Protein, Urine, Qualitative, Dipstick US Ob Follow Up Transabdominal Approach at 32w6d status reassuring. 28 week labs reviewed. Activity and Exercise discussed. movement/PTL or Labor precautions U/S ordered at follow up Will see how large baby is with US next time No follow-ups on file. Atilio Dunn MD 04/03/2023 documented in this encounter Plan of Treatment Not on file documented as of this encounter Results * US Ob Follow Up Transabdominal Approach (04/17/2023 9:49 AM EDT) Anatomical Region Laterality Modality Body Ultrasound 04/17/2023 9:31 AM EDT Narrative 05/03/2023 6:49 PM EDT PAT NAME: ANDERS CLEARY MED REC#: [id number] DA: 2000 PAT GEND: F PAT TYPE: O EXAM GABBY: [id number] REF PHYS ATILIO DUNN Buffer Automatic Comments observed 06/05 bpp Indication ======== s<d Comparison Studies The findings of this study are compared to the prior ultrasound study dated 12/26/2022 Method ======= Voluson E6, Transabdominal ultrasound examination ========= Orozco . Number of fetuses: 1 Dating ====== LMP on: 08/17/2022 GA by LMP 34 w + 5 d MAURILIO by LMP: 05/24/2023 Method of dating: based on stated MAURILIO GA by prior assessment 34 w + 6 d MAURILIO by prior assessment: 05/23/2023 Ultrasound examination on: 04/17/2023 GA by U/S based upon: AC, BPD, Femur, HC GA by U/S 36 w + 1 d MAURILIO by U/S: 05/14/2023 Previous dating: based on stated MAURILIO, selected on 12/26/2022 Agreed MAURILIO of previous datin05/23/2023 Assigned: based on stated MAURILIO, selected on 04/17/2023 Assigned GA 34 w + 6 d Assigned MAURILIO: 05/23/2023 length 280 d General Evaluation Cardiac activity present. FHR 134 bpm. movements visualized. Presentation cephalic. Placenta Placental site: posterior. Umbilical cord Cord vessels: undetermined. Amniotic fluid Amount of AF: normal. MVP 4.8 cm. LAKE 12.1 cm. Q1 4.8 cm, Q2 3.0 cm, Q3 1.4 cm, Q4 2.9 cm. Biometry Standard BPD 88.9 mm 36w 0d ?81% ?Hadlock HC 329.1 mm 37w 3d ?79% ?Hadlock AC 316.0 mm 35w 4d ?75% ?Hadlock Femur 69.6 mm 35w 5d ?65% ?Hadlock HC / AC 1.04 EFW 2,777 g ?63% ?Felice EFW (lb) 6 lb EFW (oz) 2 oz EFW by: Haddavid ([id number]) Other: An ultrasound for weight has a margin of error of up to twenty percent. Extremities / Bony Struc FL / BPD 0.78 FL / HC 0.21 FL / AC 0.22 Other Structures FHR 134 bpm Anatomy Lateral ventricles: Appears normal Lips: Appear normal Profile: Appears normal Nose: Appears normal 4-chamber view: Appears normal RVOT view: Appears normal LVOT view: Appears normal Stomach: Appears normal Kidneys: Appears normal Bladder: Appears normal Cervical spine: Appears normal Thoracic spine: Appears normal Lumbar spine: Appears normal Gender: male Wants to know gender: yes Impression Estimated weight 63 percentile. Amniotic fluid is normal. Vertex. heart tones 134. Recommendation Follow-up scan as clinically indicated for the condition being monitored. Buffer Automatic: RT Amandeep Díaz, [facility] Physician: Atilio Dunn II, MD, FACOG Electronically signed by: Atilio Dunn II, MD, FACOG at: 18:49 Procedure Note Atilio Dunn MD - 05/03/2023 PAT NAME: ANDERS CLEARY MED REC#: [id number] DA: [id number] PAT GEND: F PAT TYPE: O EXAM GABBY: [id number] REF PHYS ATILIO DUNN Buffer Automatic Comments observed 06/05 bpp Indication ======== s<d Comparison Studies The findings of this study are compared to the prior ultrasound studydated 12/26/2022 Method ======= Voluson E6, Transabdominal ultrasound examination ========= Orozco . Number of fetuses: 1 Dating ====== LMP on:08/17/2022 GA by LMP34 w + 5 d MAURILIO by LMP:05/24/2023 Method of dating:based on stated MAURILIO GA by prior [id number] w + 6 d MAURILIO by prior assessment:05/23/2023 Ultrasound examination on:04/17/2023 GA by U/S based upon:AC, BPD, Femur, HC GA by U/S36 w + 1 d MAURILIO by U/S:05/14/2023 Previous dating:based on stated MAURILIO, selected on 12/26/2022 Agreed MAURILIO of previous datin05/23/2023 Assigned:based on stated MAURILIO, selected on 04/17/2023 Assigned GA34 w + 6 d Assigned MAURILIO:05/23/2023 d General Evaluation Cardiac activity present. FHR 134 bpm. movements visualized. Presentation cephalic. Placenta Placental site: posterior. Umbilical cord Cord vessels: undetermined. Amniotic fluid Amount of AF: normal. MVP 4.8 cm. LAKE 12.1 cm. Q1 4.8 cm,Q2 3.0 cm, Q3 1.4 cm, Q4 2.9 cm. Biometry Standard BPD88.9 mm 36w 0d 81% Hadlock HC329.1 mm 37w 3d 79% Hadlock AC316.0 mm 35w 4d 75% Hadlock Femur69.6 mm 35w 5d 65% Hadlock HC / AC1.04 EFW2,777 g 63% Felice EFW (lb)6 lb EFW (oz)2 oz EFW by:Hadlock ([id number]) Other:An ultrasound for weight has a margin of error of up totwenty percent. Extremities / Bony Struc FL / BPD0.78 FL / HC0.21 FL / AC0.22 Other Structures HQU420 bpm Anatomy Lateral ventricles:Appears normal Lips:Appear normal Profile:Appears normal Nose:Appears normal 4-chamber view:Appears normal RVOT view:Appears normal LVOT view:Appears normal Stomach:Appears normal Kidneys:Appears normal Bladder:Appears normal Cervical spine:Appears normal Thoracic spine:Appears normal Lumbar spine:Appears normal Gender:male Wants to know gender:yes Impression Estimated weight 63 percentile. Amniotic fluid is normal. Vertex. heart tones 134. Recommendation Follow-up scan as clinically indicated for the condition beingmonitored. Buffer Automatic: RT Amandeep Díaz, [facility] Physician: Atilio Dunn II, MD, FACOG Electronically signed by: Atilio Dunn II, MD, FACOG at: 18:49 us Atilio Dunn MD [facility] US ORDERABLES Final Result documented in this encounter Visit Diagnoses Diagnosis 32 weeks gestation of - Primary Obesity (BMI 30-39.9) Screening for cervical cancer Screening for malignant neoplasm of the cervix 34 weeks gestation of - Primary 32 weeks gestation of documented in this encounter Care Teams Rest Room Maid Relationship Specialty Start Date End Date Anival Ames MD PCP - General Emergency Medicine 08/17/20 documented as of this encounter
--- OUTSIDE RECORDS SUMMARY | 2024-09-18 09:15 | XMS_ITS | Encounter Summary ---
[facility] Address [address] [place] [address] Care Team Providers Care Associate Artistic Director Name Role Phone Anival Ames MD Primary Care Provider [phone] Reason for Visit * Diagnostic Imaging (Routine) - Closed Specialty Diagnoses / Procedures Referred By Contac t Referred To Contact Radiology Diagnoses Early stage of Procedures US Ob Limited 1 + Fetuses US Ob Transvaginal Atilio Dunn MD [address] [facility] [address] [place] [address] Phone: tel: fax: [facility] [place] [address] Phone: tel: fax: Referral ID Status Reason Start Date Expiration Date Visits Re quested Visits Authorized [id number] Closed 10/24/2022 10/24/2023 1 1 Encounter Details Date Type Department Care Team (Late st Contact Info) Description 10/24/2022 10:30 AM EST Ancillary Procedure [facility] [address] [place] [address] Social History Tobacco Use Types Packs/Day Years Used Date Smoking Tobacco: Never Smokeless Tobacco: Never Alcohol Use Standard Drinks/Week Comments No 0 (1 standard drink = 0.6 oz pur e alcohol) [place] Depression Scale Answer Date Recorded Retired [place] Depression Score 0 06/29/2018 Retired EPD Scale: [...] Priority Date/Time Associated Diagnosis Comments US OB LIMITED 1 + FETUSES Routine 10/24/2022 11:03 AM EST Early stage of documented in this encounter Results * US Ob Limited 1 + Fetuses (10/24/2022 11:03 AM EST) Anatomical Region Laterality Modality Body Ultrasound 10/24/2022 10:3 9 AM EST Narrative 10/24/2022 12:28 PM EST PAT NAME: ANDERS CLEARY MED REC#: [id number] DA: 2000 PAT GEND: F PAT TYPE: O EXAM GABBY: [id number] REF PHYS ATILIO DUNN Indication ======== viability Comparison Studies The findings of this study are compared to the prior ultrasound study dated 10/03/2022 ========= Orozco . Number of fetuses: 1 Dating ====== LMP on: 08/17/2022 GA by LMP 9 w + 5 d MAURILIO by LMP: 05/24/2023 Method of dating: based on stated MAURILIO GA by prior assessment 9 w + 6 d MAURILIO by prior assessment: 05/23/2023 Previous dating: based on stated MAURILIO, selected on 10/03/2022 Agreed MAURILIO of previous datin05/23/2023 Assigned: based on stated MAURILIO, selected on 10/24/2022 Assigned GA 9 w + 6 d Assigned MAURILIO: 05/23/2023 length 280 d General Evaluation movements present. Presentation transverse. Placenta Placental site: too early. Umbilical cord Cord vessels: undetermined. Amniotic fluid Amount of AF: normal. Maternal Structures Ovaries / Tubes / Adnexa Rt ovary other findings: 2cm simple cyst Impression ========= 9w6d Pos FHTs Recommendation Follow-up scan as clinically indicated Bulk Tank Car Unloader: RT Amandeep Díaz, [facility] Physician: Atilio Dunn II, MD, FACOG Electronically signed by: Atilio Dunn II, MD, FACOG at: 12:28 Procedure Note Atilio Dunn MD - 10/24/2022 PAT NAME: ANDERS CLEARY MED REC#: [id number] DA: [id number] PAT GEND: F PAT TYPE: O EXAM GABBY: [id number] REF PHYS ATILIO DUNN Indication ======== viability Comparison Studies The findings of this study are compared to the prior ultrasound studydated 10/03/2022 ========= Orozco . Number of fetuses: 1 Dating ====== LMP on:08/17/2022 GA by LMP9 w + 5 d MAURILIO by LMP:05/24/2023 Method of dating:based on stated MAURILIO GA by prior assessment9 w + 6 d MAURILIO by prior assessment:05/23/2023 Previous dating:based on stated MAURILIO, selected on 10/03/2022 Agreed MAURILIO of previous datin05/23/2023 Assigned:based on stated MAURILIO, selected on 10/24/2022 Assigned GA9 w + 6 d Assigned MAURILIO:05/23/2023 [id number] d General Evaluation movements present. Presentation transverse. Placenta Placental site: too early. Umbilical cord Cord vessels: undetermined. Amniotic fluid Amount of AF: normal. Maternal Structures Ovaries / Tubes / Adnexa Rt ovary other findings:2cm simple cyst Impression ========= 9w6d Pos FHTs Recommendation Follow-up scan as clinically indicated Bulk Tank Car Unloader: RT Bre R, [facility] Physician: Atilio Dunn II, MD, FACOG Electronically signed by: Atilio Dunn II, MD, FACOG at: 2:28 us Atilio Dunn MD [facility] [place] ORDERABLES Final Result documented in this encounter Visit Diagnoses Not on filedocumented in this encounter Care Teams Associate Artistic Director Relationship Specialty Start Date End Date Anival Ames MD PCP - General Emergency Medicine 08/17/20 documented as of this encounter
--- OUTSIDE RECORDS SUMMARY | 2024-09-18 09:15 | XMS_ITS | Encounter Summary ---
Author Organization [facility] Address [address] [place] [address] Care Team Providers Care And Drying Supervisor Cooking Casing Name Role Phone Anival Ames MD Primary Care Provider [phone] Reason for Referral * Diagnostic Imaging (Routine) - Closed Specialty Diagnoses / Procedures Referred By Contac t Referred To Contact Radiology Diagnoses Placenta previa antepartum Vaginal bleeding in Procedures US Ob 14 + Weeks Single or First Gestation Debi Bashir APRN [facility] [address] [place] [address] Phone: tel: fax: Referral ID Status Reason Start Date Expiration Date Visits Re quested Visits Authorized [id number] Closed 11/28/2022 11/28/2023 1 1 Reason for Visit * Reason Comments Routine Visit Encounter Details Date Type Department Care Team (Late st Contact Info) Description 11/28/2022 10:45 AM EST Routine [facility] [address] [place] [address] Debi Bashir APRN GA: 14w6d Social History Tobacco Use Types Packs/Day Years Used Date Smoking Tobacco: Never Smokeless Tobacco: Never Alcohol Use Standard Drinks/Week Comments No 0 (1 standard drink = 0.6 oz pur e alcohol) [place] Depression Scale Answer Date Recorded Retired [place] Depression Score 0 06/29/2018 Retired EPD Scale: [...] Reading Time Taken Comments Blood Pressure 122/82 11/28/2022 11:09 AM EST Pulse - - Temperature - - Respiratory Rate - - Oxygen Saturation - - Inhaled Oxygen Concentration - - Weight 93.2 kg (205 lb 6.4 oz) 11/28/2022 11:09 AM EST Height - - Body Mass Index 31.24 04/17/2022 3:36 PM EDT documented in this encounter Progress Notes * Debi Bashir APRN - 11/28/2022 10:45 AM EST Images from the original note were not included. OB FOLLOW UP CC- Here for care of Anders Cleary is a 21 y.o. 14w6d patient being seen today for her obstetrical follow up visit. Patient reports light bleeding,cramping,headaches and states at times she gets hot and clammy and feels like she is going to pass out. Her care is complicated by (and status) : Placenta Previa Patient Active Problem List Diagnosis ??? Encounter for IUD removal ? Obesity (BMI 30-39.9) ??? Screening for cervical cancer ??? Vaginal bleeding in ??? Placenta previa antepartum Flu Status: Declines Ultrasound Today: Yes ROS - Patient Reports : cramping, light bleedingm headaches and patient states at times she gets clammy and hot and feels like she is going to pass out Patient Denies: Vision Changes and Nausea Movement : absent All other systems reviewed and are negative. The additional following portions of the patient's history were reviewed and updated as appropriate: allergies, current medications, past family history, past medical history, past social history, past surgical history and problem list. I have reviewed and agree with the HPI, ROS, and historical information as entered above. Debi Bashir APRN EXAM: Vitals BP: 122/82 Weight: 93.2 kg (205 lb 6.4 oz) Heart Rate: 146 Pelvic Exam: Urine Glucose Read-only: Negative Urine Protein Read-only: Negative Assessment and Plan Problem List Items Addressed This Visit Gravid and Vaginal bleeding in Placenta previa antepartum Other Visit Diagnoses care, second trimester - Primary Relevant Orders POC Protein, Urine, Qualitative, Dipstick (Completed) POC Glucose, Urine, Qualitative, Dipstick (Completed) 1. at 14w6d 2. status reassuring. 3. Counseled on MSAFP alone in relation to OTD and placental issues. Declined cfDNA testing 4. Anatomy scan next visit. U/S today for h/o previa with bleeding in early . Scan today shows low lying placenta ~ 1cm from io. Continue pelvic rest. MBT= A positive 5. Activity and Exercise discussed. 6. Patient is on vitamins RTC in 4 weeks for anatomy scan and see Dr.Parrott Debi Bashir APRN 11/28/2022 documented in this encounter Plan of Treatment Not on file documented as of this encounter Procedures Procedure Name Priority Date/Time Associated Diagnosis Comments POCT PROTEIN, URINE, QUALITATIVE, DIPSTICK Routine 11/28/2022 11:03 AM EST care, second trimester POCT GLUCOSE, URINE, QUALITATIVE, DIPSTICK Routine 11/28/2022 11:03 AM EST care, second trimester documented in this encounter Results * US Ob 14 + Weeks Single or First Gestation (12/26/2022 10:00 AM EST) Anatomical Region Laterality Modality Body Ultrasound 12/26/2022 9:35 AM EST Narrative 12/26/2022 10:37 AM EST PAT NAME: ANDERS CLEARY MED REC#: [id number] DA: 2000 PAT GEND: F PAT TYPE: O EXAM GABBY: [id number] REF PHYS DEBI BASHIR Indication ======== anatomy survey; early previa Comparison Studies There are no relevant prior studies to which this study is being compared Method ======= Voluson E6, Transabdominal ultrasound examination. View: Sufficient view ========= Orozco . Number of fetuses: 1 Dating ====== LMP on: 08/17/2022 GA by LMP 18 w + 5 d MAURILIO by LMP: 05/24/2023 Method of dating: based on stated MAURILIO GA by prior assessment 18 w + 6 d MAURILIO by prior assessment: 05/23/2023 Ultrasound examination on: 12/26/2022 GA by U/S based upon: AC, BPD, Femur, HC GA by U/S 19 w + 2 d MAURILIO by U/S: 05/20/2023 Previous dating: based on stated MAURILIO, selected on 11/28/2022 Agreed MAURILIO of previous datin05/23/2023 Assigned: based on stated MAURILIO, selected on 12/26/2022 Assigned GA 18 w + 6 d Assigned MAURILIO: 05/23/2023 length 280 d General Evaluation Cardiac activity present. movements present. Presentation cephalic. Placenta Placental site: posterior. Umbilical cord Cord vessels: 3 vessel cord. Amniotic fluid Amount of AF: normal. MVP 2.9 cm. Biometry Standard BPD 43.6 mm 19w 1d ?65% ?Hadlock HC 170.1 mm 19w 4d ?78% ?Hadlock Cerebellum tr 19.2 mm 18w 5d ?30% ?Hill Nuchal fold 3.8 mm AC 136.8 mm 19w 1d ?55% ?Hadlock Femur 29.2 mm 19w 0d ?48% ?Hadlock HC / AC 1.24 ?87% ?Hadlock EFW 275 g EFW (lb) 0 lb EFW (oz) 10 oz EFW by: Hadlock ([id number]-FL) Extended E Merchant 2.8 mm CM 2.6 mm ?2% ?Nicolaides Extremities / Bony Struc FL / BPD 0.67 ?46% ?Hadlock FL / HC 0.17 ?16% ?Hadlock FL / AC 0.21 ?55% ?Hadlock Anatomy Cranium: Appears normal Lateral ventricles: Appears normal Choroid plexus: Appears normal Midline falx: Appears normal Cavum septi pellucidi: Appears normal Cerebellum: Appears normal Cisterna magna: Appears normal Lips: Appear normal Profile: Appears normal Nose: Appears normal 4-chamber view: Appears normal RVOT view: Appears normal LVOT view: Appears normal Heart / Thorax 3-vessel view: Appears normal 9-pabbsv-vlnhwft view: Appears normal Diaphragm: Appears normal Diaphragm: Intact Cord insertion: Appears normal Stomach: Appears normal Kidneys: Appears normal Bladder: Appears normal Genitals: Appears normal Abdomen Abdom. wall: Abdominal wall is intact Stomach: left-sided Cervical spine: Appears normal Thoracic spine: Appears normal Lumbar spine: Appears normal Sacral spine: Appears normal Arms: Appears normal Legs: Appears normal Rt arm: Appears normal Lt arm: Appears normal Rt hand: Appears normal Lt hand: Appears normal Rt leg: Appears normal Lt leg: Appears normal Rt foot: Appears normal Lt foot: Appears normal Gender: male Wants to know gender: yes Maternal Structures Uterus / Cervix Uterus: Visualized Cervix: Visualized Cervical length 39.9 mm Ovaries / Tubes / Adnexa Rt ovary: Visualized Lt ovary: Visualized Impression ========= No structural abnormalities are seen on today's scan. Anatomic survey is now complete.no praevia Recommendation Follow-up scan as clinically indicated. Quality Control Analyst: Greyson Sharp RT R, RUST Physician: Jacek Walters II, MD, FACOG Electronically signed by: Jacek Walters II, MD, FACOG at: 10:37 Procedure Note Jacek Walters MD - 12/26/2022 PAT NAME: ANDERS CLEARY MED REC#: [id number] DA: 2000 PAT GEND: F PAT TYPE: O EXAM GABBY: [id number] REF PHYS DEBI BASHIR Indication ======== anatomy survey; early previa Comparison Studies There are no relevant prior studies to which this study is beingcompared Method ======= Voluson E6, Transabdominal ultrasound examination. View: Sufficient view ========= Orozco . Number of fetuses: 1 Dating ====== LMP on:08/17/2022 GA by LMP18 w + 5 d MAURILIO by LMP:05/24/2023 Method of dating:based on stated MAURILIO GA by prior [email or web address] w + 6 d MAURILIO by prior assessment:05/23/2023 Ultrasound examination on:12/26/2022 GA by U/S based upon:AC, BPD, Femur, HC GA by U/S19 w + 2 d MAURILIO by U/S:05/20/2023 Previous dating:based on stated MAURILIO, selected on 11/28/2022 Agreed MAURILIO of previous datin05/23/2023 Assigned:based on stated MAURILIO, selected on 12/26/2022 Assigned GA18 w + 6 d Assigned MAURILIO:05/23/2023 d General Evaluation Cardiac activity present. movements present. Presentation cephalic. Placenta Placental site: posterior. Umbilical cord Cord vessels: 3 vessel cord. Amniotic fluid Amount of AF: normal. MVP 2.9 cm. Biometry Standard BPD43.6 mm 19w 1d 65% Hadlock HC170.1 mm 19w 4d 78% Hadlock Cerebellum tr19.2 mm 18w 5d 30% Hill Nuchal fold3.8 mm AC136.8 mm 19w 1d 55% Hadlock Femur29.2 mm 19w 0d 48% Hadlock HC / AC1.24 87% Hadlock CVN547 g EFW (lb)0 lb EFW (oz)10 oz EFW by:Hadlock (GKG-OD-PV-FL) Extended Vp2.8 mm CM2.6 mm 2% Nicolaides Extremities / Bony Struc FL / BPD0.67 46% Hadlock FL / HC0.17 16% Hadlock FL / AC0.21 55% Hadlock Anatomy Cranium:Appears normal Lateral ventricles:Appears normal Choroid plexus:Appears normal Midline falx:Appears normal Cavum septi pellucidi:Appears normal Cerebellum:Appears normal Cisterna magna:Appears normal Lips:Appear normal Profile:Appears normal Nose:Appears normal 4-chamber view:Appears normal RVOT view:Appears normal LVOT view:Appears normal Heart / Thorax 3-vessel view:Appears normal 2-kpcbaq-olohrmt view:Appears normal Diaphragm:Appears normal Diaphragm:Intact Cord insertion:Appears normal Stomach:Appears normal Kidneys:Appears normal Bladder:Appears normal Genitals:Appears normal Abdomen Abdom. wall:Abdominal wall is intact Stomach:left-sided Cervical spine:Appears normal Thoracic spine:Appears normal Lumbar spine:Appears normal Sacral spine:Appears normal Arms:Appears normal Legs:Appears normal Rt arm:Appears normal Lt arm:Appears normal Rt hand:Appears normal Lt hand:Appears normal Rt leg:Appears normal Lt leg:Appears normal Rt foot:Appears normal Lt foot:Appears normal Gender:male Wants to know gender:yes Maternal Structures Uterus / Cervix Uterus:Visualized Cervix:Visualized Cervical cyctef06.9 mm Ovaries / Tubes / Adnexa Rt ovary:Visualized Lt ovary:Visualized Impression ========= No structural abnormalities are seen on today's scan. Anatomicsurvey is now complete.no praevia Recommendation Follow-up scan as clinically indicated. Quality Control Analyst: Greyson Sharp RT R, RUST Physician: Jacek Walters II, MD, FACOG Electronically signed by: Jacek Walters II, MD, FACOG at: 2810:37 us Debi Skelton Manan SALES AND MARKETING ASSOCIATE IMG US ORDERABLES Final Re sult * POC Glucose, Urine, Qualitative, Dipstick (11/28/2022 11:03 AM EST) Glucose, UA Negative Negative mg/dL [facility] Urine 11/28/2022 11:0 3 AM EST us Debi Skelton Manan [place]INT OF CARE TEST ORDERAB LES Final Result Performing Organization Address City/[facility]/ZIP Co de Phone Number [facility]
[address] [place] [address], [place] [phone] * POC Protein, Urine, Qualitative, Dipstick (11/28/2022 11:03 AM EST) Protein, POC Negative Negative mg/dL [facility] Lot Number 0 [facility] Expiration Date 0 [facility] Urine 11/28/2022 11:0 3 AM EST us Debi Skelton Manan [place] POINT OF CARE TEST ORDERAB LES Final Result Performing Organization Address City/[facility]/ZIP Co de Phone Number [facility]
[address] [place] [address], [place] [phone] documented in this encounter Visit Diagnoses Diagnosis care, second trimester- Primary Placenta previa antepartum Placenta previa without hemorrhage, antepartum Vaginal bleeding in Placenta previa antepartum Placenta previa without hemorrhage, antepartum Vaginal bleeding in 18 weeks gestation of - Primary Obesity (BMI 30-39.9) Screening for cervical cancer Screening for malignant neoplasm of the cervix documented in this encounter Care Teams And Drying Supervisor Cooking Casing Relationship Specialty Start Date End Date Anival Ames MD PCP - General Emergency Medicine 08/17/20 documented as of this encounter
--- OUTSIDE RECORDS SUMMARY | 2024-09-18 09:15 | XMS_ITS | Encounter Summary ---
[facility] Address [address] [place] [address] Care Team Providers Care Service Supervisor Name Role Phone Anival Ames MD Primary Care Provider [phone] Encounter Details Date Type Department Care Team (Late st Contact Info) Description 02/15/2023 Telephone [facility] [address] [place] [address] Jacek Walters MD [address] [facility] [address] [place] [address] Social History Tobacco Use Types Packs/Day Years Used Date Smoking Tobacco: Never Smokeless Tobacco: Never Alcohol Use Standard Drinks/Week Comments No 0 (1 standard drink = 0.6 oz pur e alcohol) [place] Depression Scale Answer Date Recorded Retired [place] Depression Score 0 06/29/2018 Retired EPD Scale: [...] encounter Miscellaneous Notes * Telephone Encounter - Amy Johnson RN - 02/16/2023 10:18 AM EDT 26w2d. Per OP ok to rx macrobid 100mg BID x7 days for + CCUA at work and back pain. Patient has appointment 02/20/23 in office. Tried calling patient. No answer and no VM set up. * Telephone Encounter - Anabell Alcantar RegSched Rep - 02/16/2023 9:58 AM EDT PATIENT CALLED BACK TO CHECK ON STATUS OF THE MEDICATION REQ * Telephone Encounter - Rachana Cruz MA - 02/15/2023 9:56 AM EDT Patient called having back pain and checked her urine (she works at a [email or web address] office) trace protein, Ketones trace, Trace Leuks, can we call her something in? She lives in [facility] [place] [address]. documented in this encounter Plan of Treatment Not on file documented as of this encounter Visit Diagnoses Not on filedocumented in this encounter Care Teams Service Supervisor Relationship Specialty Start Date End Date Anival Ames MD PCP - General Emergency Medicine 08/17/20 documented as of this encounter
--- OUTSIDE RECORDS SUMMARY | 2024-09-18 09:15 | XMS_ITS | Encounter Summary ---
[facility] Address [address] [place] [address] Care Team Providers Care Hand Inspector Name Role Phone Anival Ames MD Primary Care Provider [phone] Reason for Visit * Reason Comments Routine Visit Ultrasound * Diagnostic Imaging (Routine) - Closed Specialty Diagnoses / Procedures Referred By Contac t Referred To Contact Radiology Diagnoses Early stage of Procedures US Ob Limited 1 + Fetuses US Ob Transvaginal Jacek Walters MD [address] [address] Phone: tel: fax: [facility] [address] [place] [address] Phone: tel: fax: Referral ID Status Reason Start Date Expiration Date Visits Re quested Visits Authorized [id number] Closed 10/24/2022 10/24/2023 1 1 Encounter Details Date Type Department Care Team (Late st Contact Info) Description 10/24/2022 11:00 AM EST Routine [facility] [address] [place] [address] Jacek Walters MD [address] [place] [address] GA: 9w6d Social History Tobacco Use Types Packs/Day Years Used Date Smoking Tobacco: Never Smokeless Tobacco: Never Alcohol Use Standard Drinks/Week Comments No 0 (1 standard drink = 0.6 oz pur e alcohol) [place] Depression Scale Answer Date Recorded Retired [place] Depression Score 0 06/29/2018 Retired EPD Scale: [...] Reading Time Taken Comments Blood Pressure 118/70 10/24/2022 11:52 AM EST Pulse - - Temperature - - Respiratory Rate - - Oxygen Saturation - - Inhaled Oxygen Concentration - - Weight 96.8 kg (213 lb 6.4 oz) 10/24/2022 11:52 AM EST Height - - Body Mass Index 32.45 04/17/2022 3:36 PM EDT documented in this encounter Progress Notes * Jacek Walters MD - 10/24/2022 11:00 AM EST Images from the original note were not included. OB FOLLOW UP CC- Here for care of Geovani Cleary is a 21 y.o. 9w6d patient being seen today for her obstetrical follow up visit. Patient reports nausea with occasional vomiting. Her care is complicated by (and status) : bleeding in early Patient Active Problem List Diagnosis ??? Encounter for IUD removal ? Obesity (BMI 30-39.9) ??? Screening for cervical cancer Desires genetic testing?: No Flu Status: Declines Ultrasound Today: Yes for viability- showed a single viable IUP ROS - Patient Reports : Nausea with occasional vomiting Patient Denies: Vaginal Spotting, Vision Changes, Headaches and cramping Movement : absent All other systems reviewed and are negative. The additional following portions of the patient's history were reviewed and updated as appropriate: past family history, past medical history, past social history, past surgical history and problem list. I have reviewed and agree with the HPI, ROS, and historical information as entered above. Jacek Walters MD BP 118/70 Wt 96.8 kg (213 lb 6.4 oz) LMP 08/17/2022 BMI 32.45 kg/m?? EXAM: Vitals BP: 118/70 Weight: 96.8 kg (213 lb 6.4 oz) Heart Rate: 164 Assessment and Plan Problem List Items Addressed This Visit None Visit Diagnoses care, subsequent , first trimester - Primary Relevant Orders POC Glucose, Urine, Qualitative, Dipstick POC Protein, Urine, Qualitative, Dipstick US nl today 1. at 9w6d 2. Labs reviewed from New OB Visit. 3. Counseled on genetic testing, carrier status and option for NT screen 4. Activity and Exercise discussed. 5. Patient is on vitamins Return in about 1 month (around 11/24/2022). Jacek Walters MD 10/24/2022 documented in this encounter Plan of Treatment Not on file documented as of this encounter Procedures Procedure Name Priority Date/Time Associated Diagnosis Comments POCT PROTEIN, URINE, QUALITATIVE, DIPSTICK Routine 10/24/2022 12:38 PM EST care, subsequent , first trimester POCT GLUCOSE, URINE, QUALITATIVE, DIPSTICK Routine 10/24/2022 12:38 PM EST care, subsequent , first trimester US OB LIMITED 1 + FETUSES Routine 10/24/2022 11:03 AM EST Early stage of documented in this encounter Results * POC Protein, Urine, Qualitative, Dipstick (10/24/2022 12:38 PM EST) Protein, POC Negative Negative mg/dL [facility] Lot Number [id number] [facility] Expiration Date [id number] [facility] Urine 10/24/2022 12:3 8 PM EST us Jacek Walters MD POINT OF CARE TEST ORDERABLES F inal Result [facility]
[address] [place] [address], * POC Glucose, Urine, Qualitative, Dipstick (10/24/2022 12:38 PM EST) Glucose, UA Negative Negative mg/dL [facility] Urine 10/24/2022 12:3 8 PM EST us Jacek Walters MD POINT OF CARE TEST ORDERABLES F inal Result [facility]
[address] [place] [address], documented in this encounter Visit Diagnoses Diagnosis care, subsequent , first trimester- Primary documented in this encounter Care Teams Hand Inspector Relationship Specialty Start Date End Date Anival Ames MD PCP - General Emergency Medicine 08/17/20 documented as of this encounter
--- OUTSIDE RECORDS SUMMARY | 2024-09-18 09:15 | XMS_ITS | Encounter Summary ---
[facility] [address] [place] [address] Care Team Providers Care Talent Management Manager Name Role Phone Anival Ames MD Primary Care Provider [phone] Reason for Visit * Reason Comments Routine Visit 26w6d Encounter Details Date Type Department Care Team (Late st Contact Info) Description 02/20/2023 9:40 AM EDT Routine [facility] OBGYN [address] [place] [address] Jacek Walters MD [address] [place] [address] GA: 26w6d Social History Tobacco Use Types Packs/Day Years Used Date Smoking Tobacco: Never Smokeless Tobacco: Never Alcohol Use Standard Drinks/Week Comments No 0 (1 standard drink = 0.6 oz pur e alcohol) [place] Depression Scale Answer Date Recorded Retired [place] Depression Score 0 06/29/2018 Retired EPD Scale: [...] Sign Reading Time Taken Comments Blood Pressure 122/78 02/20/2023 10:00 AM EDT Pulse - - Temperature - - Respiratory Rate - - Oxygen Saturation - - Inhaled Oxygen Concentration - - Weight 99.3 kg (219 lb) 02/20/2023 10:00 AM EDT Height - - Body Mass Index 33.31 04/17/2022 3:36 PM EDT documented in this encounter Progress Notes * Jacek Walters MD - 02/20/2023 9:40 AM EDT Images from the original note were not included. OB FOLLOW UP CC- Here for care of Geovani Cleary is a 22 y.o. 26w6d patient being seen today for her obstetrical follow up. Patient reports taking meds for UTI. Rib pain Patient undergoing Glucola testing today. She is due for her testing at 1052. MBT: A+ Rhogam: na 28 week packet: reviewed with patient and counseled on movement TDAP: declines Flu Status: Declines Ultrasound Today: No Her care is complicated by (and status) : None Patient Active Problem List Diagnosis ??? Encounter for IUD removal ? Obesity (BMI 30-39.9) ??? Screening for cervical cancer ??? Vaginal bleeding in ??? Placenta previa antepartum ROS - Patient Reports : rib pain Patient Denies: Loss of Fluid, Vaginal Spotting, Vision Changes, Headaches, Nausea and Vomiting Movement : normal The additional following portions of the patient's history were reviewed and updated as appropriate: allergies and current medications. I have reviewed and agree with the HPI, ROS, and historical information as entered above. Jacek Walters MD BP 122/78 Wt 99.3 kg (219 lb) LMP 08/17/2022 BMI 33.31 kg/m?? EXAM: Vitals BP: 122/78 Weight: 99.3 kg (219 lb) Heart Rate: 174 Urine Glucose Read-only: Negative Urine Protein Read-only: (!) 1+ Assessment and Plan Problem List Items Addressed This Visit Endocrine and Metabolic Obesity (BMI 30-39.9) Overview BMI 33 Genitourinary and Reproductive Screening for cervical cancer Overview Pap smear 05/20/2022 was negative; HPV HR screen negative. STD screen negative. Gravid and Overview ; Prior 7#15 Boy. Ultrasound 09/28/2022 with 6-week 11/04 viable IUP. Repeat u/s in 2-3 wk. MBT A positive. E. coli UTI on urine culture. Treated with Macrobid Other Visit Diagnoses Screening for diabetes mellitus - Primary Relevant Orders Antibody Screen Gestational Screen 1 Hr ([facility]) RUQ pain Relevant Orders Preeclampsia Panel Amylase US Gallbladder 1. at 26w6d 2. 1 hr Glucola, CBC, and antibody screen today and TDAP given today 3. movement/PTL or Labor precautions 4. RUQ pain and we will do labs and US of gallbladder 5. Activity and Exercise discussed. Return in about 1 month (around 03/22/2023) for Recheck. Jacek Walters MD 02/20/2023 * Jacek Walters MD - 02/20/2023 9:40 AM EDT Liver functions are normal amylase is normal Labs are mostly normal except for mild anemia. We willawait further test we have ordered documented in this encounter Plan of Treatment Scheduled Orders Name Type Priority Associated Diagnoses Orde r Schedule Antibody Screen Blood Bank Routine Screening for diabetes mellitus Ordered: 02/20/2023 Preeclampsia Panel Lab Routine RUQ pain Ordered: 02/20/2023 documented as of this encounter Procedures Procedure Name Priority Date/Time Associated Diagnosis Comments ALP+ALT+AST+CREAT+LD +TBILI+.. Routine 02/20/2023 11:33 AM EDT GESTATIONAL SCREEN 1 HR Routine 02/20/2023 11:33 AM EDT ANTIBODY SCREEN Routine 02/20/2023 11:33 AM EDT AMYLASE Routine 02/20/2023 11:33 AM EDT RUQ pain POCT URINALYSIS DIPSTICK, MANUAL Routine 02/20/2023 documented in this encounter Results * Antibody Screen (02/20/2023 11:33 AM EDT) [facility] Antibody Screen Negative Negative [facility] 02/20/2023 11:3 3 AM EDT 02/20/2023 Narrative [facility]) - 02/21/2023 6:11 AM EDT Performed at: ??02 - [facility] [address] [place] [address] ??[id number] Waste Elimination: Ortiz Heath PhD, Phone: ??[phone] Patient Fasting: ??N Jacek Walters MD BLOOD BANK TEST ORDERABLES Justina l Result Performing Organization Address [facility]/ZIP Co de Phone Number [facility] [address] [place] [address], [facility] [address] [place] [address], * Gestational Screen 1 Hr ([facility]) (02/20/2023 11:33 AM EDT) [facility] Gestational Diabetes Screen 121 65 - 139 mg/dL [facility] 02/20/2023 11:3 3 AM EDT 02/20/2023 Narrative [facility] (AMBULATORY) - 02/21/2023 6:11 AM EDT Performed at: ??[address] ??[id number] Waste Elimination: Thomas Dorsey MD, Phone: ??[phone] Patient Fasting: ??N Jacek Walters MD LAB BLOOD ORDERABLES Final Resu lt Performing Organization Address [facility]/ZIP Co de Phone Number [facility] [address] [place] [address], [facility] [address] [place] [address], * (ABNORMAL) AlP+ALT+AST+Creat+LD+TBili+.. (02/20/2023 11:33 AM EDT) Uric Acid 5.6 2.4 - 5.7 mg/dL [facility] Creatinine 0.55(L) 0.57 - 1.00 mg/dL [facility] EGFR Result 132.3 >60.0 mL/min/1.7 3 [facility] Comment: GFR Normal >60 Chronic Kidney Disease <60 Kidney Failure <15 Total Bilirubin 0.2 0.0 - 1.2 mg/dL [facility] Alkaline Phosphatase 86 39 - 117 U/L [facility] LDH 180 135 - 214 U/L [facility] AST (SGOT) 11 1 - 32 U/L [facility] ALT (SGPT) 7 1 - 33 U/L [facility] WBC 9.65 3.40 - 10.80 10*3/mm3 [facility] RBC 3.63(L) 3.77 - 5.28 10*6/mm3 [facility] Hemoglobin 11.7(L) 12.0 - 15.9 g/dL [facility] Hematocrit 32.5(L) 34.0 - 46.6 % [facility] MCV 89.5 79.0 - 97.0 fL [facility] MCH 32.2 26.6 - 33.0 pg [facility] MCHC 36.0(H) 31.5 - 35.7 g/dL [facility] RDW 11.8(L) 12.3 - 15.4 % [facility] Platelets 195 140 - 450 10*3/mm3 [facility] Neutrophil Rel % 78.1(H) 42.7 - 76.0 % [facility] Lymphocyte Rel % 15.3(L) 19.6 - 45.3 % [facility] Monocyte Rel % 4.1(L) 5.0 - 12.0 % [facility] Eosinophil Rel % 1.2 0.3 - 6.2 % [facility] Basophil Rel % 0.3 0.0 - 1.5 % [facility] Neutrophils Absolute 7.52(H) 1.70 - 7.00 10*3/mm3 [facility] Lymphocytes Absolute 1.48 0.70 - 3.10 10*3/mm3 [facility] Monocytes Absolute 0.40 0.10 - 0.90 10*3/mm3 [facility] Eosinophils Absolute 0.12 0.00 - 0.40 10*3/mm3 [facility] Basophils Absolute 0.03 0.00 - 0.20 10*3/mm3 [facility] Immature Granulocyte Rel % 1.0(H) 0.0 - 0.5 % [facility] Immature Grans Absolute 0.10(H) 0.00 - 0.05 10*3/mm3 [facility] nRBC 0.0 0.0 - 0.2 /100 WBC [facility] 02/20/2023 11:3 3 AM EDT 02/20/2023 Narrative [facility] ([facility]) - 02/21/2023 6:11 AM EDT Performed at: ?? [address] ??[id number] Waste Elimination: Thomas Dorsey MD, Phone: ??[phone] Patient Fasting: ??N Jacek Walters MD LAB BLOOD ORDERABLES Final Resu lt Performing Organization Address [facility] de Phone Number [facility]) [address] [place] [address], [place] [phone] [facility] [address] [place] [id number], [place] [phone] * Amylase (02/20/2023 11:33 AM EDT) Amylase 35 28 - 100 U/L [facility] Blood 02/20/2023 11:3 3 AM EDT 02/20/2023 Narrative [facility] ([facility]) - 02/21/2023 6:11 AM EDT Performed at: ?? [address] ??[id number] Waste Elimination: Thomas Dorsey MD, Phone: ??[phone] Patient Fasting: ??N us Jacek Walters MD LAB BLOOD ORDERABLES Final Resu lt Performing Organization Address [facility] Co de Phone Number [facility] ([facility]) [address] [place] [address], [facility] [address] [place] [address], * (ABNORMAL) POC Urinalysis Dipstick (02/20/2023) Glucose, UA Negative Negative Protein, POC 1+(A) Negative Urine Historical Provider POINT OF CARE TEST ORDERA BLES Final Result documented in this encounter Visit Diagnoses Diagnosis Screening for diabetes mellitus- Primary 26 weeks gestation of Obesity (BMI 30-39.9) Screening for cervical cancer Screening for malignant neoplasm of the cervix RUQ pain Abdominal pain, right upper quadrant documented in this encounter Care Teams Talent Management Manager Relationship Specialty Start Date End Date Anival Ames MD PCP - General Emergency Medicine 08/17/20 documented as of this encounter
--- OUTSIDE RECORDS SUMMARY | 2024-09-18 09:15 | XMS_ITS | Encounter Summary ---
[facility] Address [address] [place] [address] Care Team Providers Care Disability Aide Name Role Phone Anival Ames MD Primary Care Provider [phone] Reason for Visit * Reason Onset Date Comments SHAUN OB PT-RX REQUEST 02/28/2023 Encounter Details Date Type Department Care Team (Late st Contact Info) Description 02/28/2023 Telephone [facility] OBGYN [address] [place] [address] Jacek Walters MD [address] [place] [address] SHAUN OB PT-RX REQUEST Social History Tobacco Use Types Packs/Day Years Used Date Smoking Tobacco: Never Smokeless Tobacco: Never Alcohol Use Standard Drinks/Week Comments No 0 (1 standard drink = 0.6 oz pur e alcohol) [place] Depression Scale Answer Date Recorded Retired [place] Depression Score 0 06/29/2018 Retired EPD Scale: [...] encounter Miscellaneous Notes * Telephone Encounter - Nory Mayer MA - 02/28/2023 12:12 PM EDT Patient is currently 28 weeks gestation. Patient can take OTC Monistat. Patient has been made awareand v/u. * Telephone Encounter - Estiven Dorsey RegSched Rep - 02/28/2023 11:57 AM EDT Caller: Geovani Cleary Relationship: Self Best call back number: [phone]-CALL ANYTIME, IT IS OKAY TO LVM. Requested Prescriptions: Requested Prescriptions No prescriptions requested or ordered in this encounter MEDICATION TO TREAT YEAST INFECTION-PATIENT IS REQUESTING PILL INSTEAD OF OINTMENT. Pharmacy where request should be sent: [facility] - [address] - [phone] - [phone] FX Last office visit with prescribing clinician: Visit date not found Last telemedicine visit with prescribing clinician: 03/20/2023 Next office visit with prescribing clinician: 03/20/2023 Additional details provided by patient: PATIENT HAS VAGINAL ITCHING AND DISCHARGE. Does the patient have less than a 3 day supply: [x] Yes [] No Would you like a call back once the refill request has been completed: [] Yes [x] No If the office needs to give you a call back, can they leave a voicemail: [x] Yes [] No Yrn Celestin 02/28/23 11:58 EDT documented in this encounter Plan of Treatment Not on file documented as of this encounter Visit Diagnoses Not on filedocumented in this encounter Care Teams Disability Aide Relationship Specialty Start Date End Date Anival Ames MD PCP - General Emergency Medicine 08/17/20 documented as of this encounter
--- OUTSIDE RECORDS SUMMARY | 2024-09-18 09:15 | XMS_ITS | Encounter Summary ---
Author Organization [facility] Address [address] [place] [address] Care Team Providers Care [employer] Site Manager Name Role Phone Anival Ames MD Primary Care Provider [phone] Reason for Visit * Diagnostic Imaging (Routine) - Closed Specialty Diagnoses / Procedures Referred By Contac t Referred To Contact Radiology Diagnoses 32 weeks gestation of Procedures US Ob Follow Up Transabdominal Approach Atilio Dunn MD [address] [facility] [address] [place] [address] Phone: tel: fax: [facility] [place] [address] Phone: tel: fax: Referral ID Status Reason Start Date Expiration Date Visits Re quested Visits Authorized [id number] Closed 04/03/2023 04/02/2024 1 1 Encounter Details Date Type Department Care Team (Latest Contact Info) Description 04/17/2023 9:30 AM EDT Ancillary Procedure [facility] OBGYN [address] [place] [address] 32 weeks gestation of Social History Tobacco Use Types Packs/Day Years Used Date Smoking Tobacco: Never Smokeless Tobacco: Never Alcohol Use Standard Drinks/Week Comments No 0 (1 standard drink = 0.6 oz pur e alcohol) [place] Depression Scale Answer Date Recorded Retired [place] Depression Score 0 06/29/2018 Retired EPD Scale: [...] Priority Date/Time Associated Diagnosis Comments US OB FOLLOW UP TRANSABDOMINAL APPROACH Routine 04/17/2023 9:49 AM EDT 32 weeks gestation of documented in this encounter Results * US Ob Follow Up Transabdominal Approach (04/17/2023 9:49 AM EDT) Anatomical Region Laterality Modality Body Ultrasound 04/17/2023 9:31 AM EDT Narrative 05/03/2023 6:49 PM EDT PAT NAME: ANDERS CLEARY MED REC#: [id number] DA: 2000 PAT GEND: F PAT TYPE: O EXAM GABBY: [id number] REF PHYS ATILIO DUNN Assembling Fabricator Comments observed 06/05 bpp Indication ======== s<d [...] lb EFW (oz) 2 oz EFW by: Toribio ([id number]) Other: An ultrasound for weight has a [...] clinically indicated for the condition being monitored. Assembling Fabricator: RT Amandeep Díaz, [facility] Physician: Atilio Dunn II, MD, FACOG Electronically signed by: Atilio Dunn II, MD, FACOG at: 18:49 Procedure Note Atilio Dunn MD - 05/03/2023 PAT NAME: ANDERS CLEARY MED REC#: [id number] DA: 2000 PAT GEND: F PAT TYPE: O EXAM GABBY: [id number] REF PHYS ATILIO DUNN Assembling Fabricator Comments observed 06/05 bpp Indication ======== s<d Comparison Studies The findings of this study are compared to the prior ultrasound studydated 12/26/2022 Method ======= Voluson E6, Transabdominal ultrasound examination ========= Orozco . Number of fetuses: 1 Dating ====== LMP on:08/17/2022 GA by [id number] w + 5 d MAURILIO by LMP:05/24/2023 Method of dating:based on stated MAURILIO GA by prior [id number] w + 6 d MAURILIO by prior assessment:05/23/2023 Ultrasound examination on:04/17/2023 GA by U/S based upon:AC, BPD, Femur, HC GA by U/S36 w + 1 d MAURILIO by U/S:05/14/2023 Previous dating:based on stated MAURILIO, selected on 12/26/2022 Agreed MAURILIO of previous datin05/23/2023 Assigned:based on stated MAURILIO, selected on 04/17/2023 Assigned [id number] w + 6 d Assigned MAURILIO:05/23/2023 [id number] d General Evaluation Cardiac activity present. FHR [...] (lb)6 lb EFW (oz)2 oz EFW by:Hadlock ([id number]-DI-WE-FL) Other:An ultrasound for weight has a margin of error of up totwenty percent. Extremities / Bony Struc FL / BPD0.78 FL / HC0.21 FL / AC0.22 Other Structures [id number] bpm Anatomy Lateral ventricles:Appears normal Lips:Appear normal Profile:Appears normal Nose:Appears normal 4-chamber view:Appears normal RVOT view:Appears normal LVOT view:Appears normal Stomach:Appears normal Kidneys:Appears normal Bladder:Appears normal Cervical spine:Appears normal Thoracic spine:Appears normal Lumbar spine:Appears normal Gender:male Wants to know gender:yes Impression Estimated weight 63 percentile. Amniotic fluid is normal. Vertex. heart tones 134. Recommendation Follow-up scan as clinically indicated for the condition beingmonitored. Assembling Fabricator: RT Amandeep Díaz, [facility] Physician: Atilio Dunn II, MD, FACOG Electronically signed by: Atilio Dunn II, MD, FACOG at: 18:49 us Atilio Dunn MD [facility] US ORDERABLES Final Result documented in this encounter Visit Diagnoses Diagnosis 34 weeks gestation of - Primary 32 weeks gestation of documented in this encounter Care Teams [employer] Manager Relationship Specialty Start Date End Date Sokan, Anival O, MD PCP - General Emergency Medicine 08/17/20 documented as of this encounter
--- OUTSIDE RECORDS SUMMARY | 2024-09-18 09:15 | XMS_ITS | Encounter Summary ---
Author Organization [facility] Address [address] [place] [address] Care Team Providers Care Dispatcher Relay Name Role Phone Anival Ames MD Primary Care Provider [phone] Reason for Visit * Reason Comments Contractions * Auth/Cert (Routine) Specialty Diagnoses / Procedures Referred By Contac t Referred To Contact Diagnoses False labor before 37 completed weeks of gestation during in third trimester, antepartum Referral ID Status Reason Start Date Expiration Date Visits Re quested Visits Authorized [id number] 1 1 Encounter Details Date Type Department Care Team (Late st Contact Info) Description 04/29/2023 10:20 PM EDT - 04/30/2023 4:55 AM EDT Hospital Encounter [facility] [address] [place] [address] Jacek Walters MD [address] [place] [address] Jalil Domingo MD [address] [place] [address] Discharge Disposition: Home or Self Care Social [...] things needed for daily living? No 04/29/2023 [place] Depression Scale Answer Date Recorded Retired [place] Depression Score 0 06/29/2018 Retired EPD Scale: [...] Sign Reading Time Taken Comments Blood Pressure 128/70 04/30/2023 2:51 AM EDT Pulse 86 04/30/2023 2:51 AM EDT Temperature 36.6 ??C (97.9 ??F) 04/30/2023 2:51 AM ED T Respiratory Rate 16 04/30/2023 2:51 AM EDT Oxygen Saturation - - Inhaled Oxygen Concentration - - Weight - - Height 175.3 cm (5' 9 ) 04/29/2023 10:59 PM EDT Body Mass Index - - documented in this encounter Discharge Instructions * Appointments* Dorothea Syed RN - 04/30/2023 4:40 AM EDT Keep your next scheduled appointment with Dr. Walters on 05/03/23 * Attachments The following attachments cannot be sent through Care Everywhere. * Irving Huerta Contractions (K[place]ovan) * Third Trimester of Dood-uj-Tgws (K[place]ovan) documented in this encounter Medications at Time of Discharge Prenat w/o C-BJ-Jxebrti-FA-D SHARPE (PNV-DHA) 27-0.6-0.4-300 MG capsule Take 1 tablet by mouth Daily. 30 capsule 11 09/28/2022 09/28/2023 ibuprofen (ADVIL,MOTRIN) 600 MG tablet Take 1 tablet by mouth Every 6 (Six) Hours As Needed for Mild Pain. 60 tablet 1 05/12/2023 2:54 PM EDT 05/12/2023 07/03/2023 documented as of this encounter H&P Notes * Jalil Domingo MD - 04/29/2023 11:08 PM EDT Geovani Cleary 2000 [id number] CC: contractions HPI: Patient is 22 y.o. female currently at 36w4d presents with c/o uterine contractions, onset ~1830, intermittent, rates 5/10, radiates to back, denies assoc bleeding or leaking. Good FM. PNC comp by hx preeclampsia last preg. Pt GBS pos. PMH: Current meds: PNV Illnesses: none Surgeries: ACL repair (rt), oral surg, ear tubes, T and A Allergies: NKDA Past OB History: OB History Para Term AB Living 2 1 1 0 0 1 SAB IAB Ectopic Molar Multiple Live Births 0 0 0 0 0 1 # Outcome Date GA Lbr Curt/2nd Weight Sex Delivery Anes PTL Lv 2 Current 1 Term 06/27/18 39w6d / 01:35 3615 g (7 lb 15.5 oz) M Vag-Spont EPI N GO Name: VIKKI CLEARY Apgar1: 8 Apgar5: 9 SH: tob neg , EtOH neg, drugs neg General ROS: contractions, SHARPE (resolved), N. All other systems reviewed and are negative. Physical Examination: General appearance - alert, well appearing, and in no distress Vital signs - BP 142/92 Pulse 100 Temp 98 ??F (36.7 ??C) (Oral) Resp 16 Ht 175.3 cm (69 ) LMP 08/17/2022 Yes BMI 33.29 kg/m?? HEENT: normocephalic, atraumatic,oropharynx clear, appearance of ears and nose normal Neck - supple, no significant adenopathy, no thyromegaly Lymphatics - no palpable lymphadenopathy in the neck or groin, no hepatosplenomegaly Chest - clear to auscultation, no wheezes, rales or rhonchi, respiratory effort non-labored Heart - normal rate, regular rhythm, no murmurs, rubs, clicks or gallops, no JVD, trace lower extremity edema Abdomen - soft, nontender, nondistended, no masses, no hepatosplenomegaly no rebound tenderness noted, bowel sounds normal Vaginal Exam: 4/70%/-2, no blood in vault ,external genitalia normal Extremities - trace pedal edema noted, no calf tend Skin -warm and dry, normal coloration and turgor, no rashes, no suspicious skin lesions noted monitoring: indication contractions , onset 2230 , offset 2306 , baseline 140 , mod BTB variability , multiple accels (15 X 15), no decels, irreg contractions, interpretation reactive NST Radiology Assessment 1)IUP 36 4/7 weeks 2)false vs labor (cervix 2cm last Tues, now 4cm) 3)hx preeclampsia last preg 4)GBS pos Plan 1)observe for now 2)if cervical change will admit and give PCN Jalil Domingo MD 04/29/2023 23:08 EDT documented in this encounter Plan of Treatment Not on file documented as of this encounter Visit Diagnoses Diagnosis False labor before 37 completed weeks of gestation during in third trimester, antepartum- Primary documented in this encounter Admitting Diagnoses Diagnosis False labor before 37 completed weeks of gestation during in third trimester, antepartum documented in this encounter Care Teams Dispatcher Relay Relationship Specialty Start Date End Date Anival Ames MD PCP - General Emergency Medicine 08/17/20 documented as of this encounter
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
--- OUTSIDE RECORDS SUMMARY | 2024-09-18 09:15 | XMS_ITS | Encounter Summary ---
[facility] Address [address] [place] [address] Care Team Providers Care Silverware Washer Name Role Phone Anival Ames MD Primary Care Provider [phone] Encounter Details Date Type Department Care Team (Late st Contact Info) Description 03/05/2023 Documentation [facility] OBGYN [address] [place] [address] Jacek Walters MD 1700 [facility] [address] [place] [address] Social History Tobacco Use Types Packs/Day Years Used Date Smoking Tobacco: Never Smokeless Tobacco: Never Alcohol Use Standard Drinks/Week Comments No 0 (1 standard drink = 0.6 oz pur e alcohol) [place] Depression Scale Answer Date Recorded Retired [place] Depression Score 0 06/29/2018 Retired EPD Scale: [...] as of this encounter Progress Notes * Rachana Cruz MA - 03/05/2023 1:03 PM EDT Patient called ran a urine strip at work and its showing UTI she will have her provider there call in another round of Macrobid and we will run a urine culture on patient when she comes in documented in this encounter Plan of Treatment Not on file documented as of this encounter Visit Diagnoses Not on filedocumented in this encounter Care Teams Silverware Washer Relationship Specialty Start Date End Date Anival Ames MD PCP - General Emergency Medicine 08/17/20 documented as of this encounter
--- OUTSIDE RECORDS SUMMARY | 2024-09-18 09:15 | XMS_ITS | Encounter Summary ---
[facility] [address] [place] [address] Care Team Providers Care Auctioneer Art Name Role Phone Anival Ames MD Primary Care Provider [phone] Reason for Visit * Reason Onset Date Comments PAIN UNDER BREAST - DR DUNN 01/19/2023 Encounter Details Date Type Department Care Team (Late st Contact Info) Description 01/19/2023 Telephone [facility] OBGYN [address] [address] Jacek Dunn MD [address] [place] [address] PAIN UNDER BREAST - DR DUNN Social History Tobacco Use Types Packs/Day Years Used Date Smoking Tobacco: Never Smokeless Tobacco: Never Alcohol Use Standard Drinks/Week Comments No 0 (1 standard drink = 0.6 oz pur e alcohol) Holiday Depression Scale Answer Date Recorded Retired Holiday Depression Score 0 06/29/2018 Retired EPD Scale: [...] encounter Miscellaneous Notes * Telephone Encounter - Rachana Cruz MA - 01/19/2023 12:03 PM EDT Patient states she is having some constipation and indigestion recommended patient to take over thecounter meds for both ifpain doesn't stop to go to Ed orcall to be seen in office * Telephone Encounter - Janet Aguilar RegSched Rep - 01/19/2023 10:36 AM EDT Provider: DR DUNN Caller: ANDERS CLEARY Relationship to Patient: SELF Pharmacy: [facility] Reason for Call: PT IS 22WKS PT HAS BEEN HAVING PAIN UNDER HER BREAST AT THE TOP OF HER RIBS ON THE RIGHT SIDE FOR ABOUT A WEEK PT DESCRIBED PAIN MILD AND CONSTANT WHEN SHE EATS THE PAIN GETS WORSE PLEASE CALL PT TO ADVISE UNABLE TO WT CALL TO CLINICAL VM IS OK When was the patient last seen: 01/23/23 documented in this encounter Plan of Treatment Not on file documented as of this encounter Visit Diagnoses Not on filedocumented in this encounter Care Teams Auctioneer Art Relationship Specialty Start Date End Date Anival Ames MD PCP - General Emergency Medicine 08/17/20 documented as of this encounter
--- OUTSIDE RECORDS SUMMARY | 2024-09-18 09:15 | XMS_ITS | Encounter Summary ---
[facility] [address] [place] [address] Care Team Providers Care Language Tutor Name Role Phone Anival Ames MD Primary Care Provider [phone] Reason for Visit * Reason Comments Problem Encounter Details Date Type Department Care Team (Late st Contact Info) Description 10/03/2022 4:15 PM EST Routine [facility] O[facility]YN [address] [place] [address] Debi Hinkle, [facility] GA: 6w6d Social History Tobacco Use Types Packs/Day Years Used Date Smoking Tobacco: Never Smokeless Tobacco: Never Alcohol Use Standard Drinks/Week Comments No 0 (1 standard drink = 0.6 oz pur e alcohol) [place] Depression Scale Answer Date Recorded Retired [place] Depression Score 0 06/29/2018 Retired EPD Scale: [...] Sign Reading Time Taken Comments Blood Pressure 122/72 10/03/2022 4:21 PM EST Pulse - - Temperature - - Respiratory Rate - - Oxygen Saturation - - Inhaled Oxygen Concentration - - Weight 100 kg (220 lb 12.8 oz) 10/03/2022 4:21 P M EST Height - - Body Mass Index 33.58 04/17/2022 3:36 PM EDT documented in this encounter Progress Notes * Debi Hinkle, MYLES - 10/03/2022 4:15 PM EST Images from the original note were not included. OB FOLLOW UP CC- Here for care of Geovani Cleary is a 21 y.o. 6w6d patient being seen today for her obstetrical follow up visit. Patient reports she had some dark brown vaginal spotting and mild cramping yesterday. Patient reports that she has had a little more than spotting today that is dark brown in color. Patient reports some mild cramping in her lower pelvic area today. Patient had positive urine culture upon NOB visit. Patient given RX for Macrobid - has not started yet. Her care is complicated by (and status) : spotting in early Patient Active Problem List Diagnosis ??? Encounter for IUD removal ? Obesity (BMI 30-39.9) ??? Screening for cervical cancer Desires genetic testing?: Will consider Flu Status: Declines Ultrasound Today: Yes ROS - Patient Reports : Vaginal Spotting, Cramping, Nausea and Vomiting. She reports vomiting 2 times perweek Patient Denies: Loss of Fluid, Vision Changes and Headaches Movement : Too early to evaluate All other systems reviewed and are negative. The additional following portions of the patient's history were reviewed and updated as appropriate: allergies and current medications. I have reviewed and agree with the HPI, ROS, and historical information as entered above. Debi MYLES Hinkle BP 122/72 Wt 100 kg (220 lb 12.8 oz) LMP 08/17/2022 BMI 33.58 kg/m?? EXAM: Vitals BP: 122/72 Weight: 100 kg (220 lb 12.8 oz) Heart Rate: 137 US Urine Glucose Read-only: Negative Urine Protein Read-only: [...] UTI on urine culture. Treated with Macrobid 1. at 6w6d 2. Labs reviewed from New OB Visit. 3. Counseled on genetic testing, carrier status and option for NT screen 4. Activity and Exercise discussed. 5. Patient is on vitamins Ultrasound findings reviewed with pt. FHR= 137bpm, Measuring 7w0d, consistent with lMP MBT= A positive. Advised pelvic rest x 2 weeks, no intercourse and no heavy lifting. Keep next ROSY appt. As scheduled. Debi Hinkle APRN 10/03/2022 documented in this encounter Plan of Treatment Not on file documented as of this encounter Procedures Procedure Name Priority Date/Time Associated Diagnosis Comments POCT URINALYSIS DIPSTICK, MANUAL Routine 10/03/2022 documented in this encounter Results * POC Urinalysis Dipstick (10/03/2022) Glucose, UA Negative Negative Protein, POC Negative Negative Urine us Historical Provider POINT OF CARE TEST ORDERA BLES Final Result documented in this encounter Visit Diagnoses Diagnosis Less than 8 weeks gestation of - Primary Obesity (BMI 30-39.9) Screening for cervical cancer Screening for malignant neoplasm of the cervix documented in this encounter Care Teams Language Tutor Relationship Specialty Start Date End Date Anival Ames MD PCP - General Emergency Medicine 08/17/20 documented as of this encounter
--- OUTSIDE RECORDS SUMMARY | 2024-09-18 09:15 | XMS_ITS | Encounter Summary ---
Author Organization [facility] Address [address] [place] [address] Care Team Providers Care Internal Consultant Name Role Phone Anival Ames MD Primary Care Provider [phone] Reason for Visit * Reason Comments Routine Visit * Diagnostic Imaging (Routine) - Closed Specialty Diagnoses / Procedures Referred By Contac t Referred To Contact Radiology Diagnoses 32 weeks gestation of Procedures US Ob Follow Up Transabdominal Approach Jacek Dunn MD [address] [facility] [address] [place] [address] Phone: tel: fax: [facility] [address] [place] [address] Phone: tel: fax: Referral ID Status Reason Start Date Expiration Date Visits Re quested Visits Authorized [id number] Closed 04/03/2023 04/02/2024 1 1 Encounter Details Date Type Department Care Team (Late st Contact Info) Description 04/17/2023 10:00 AM EDT Routine [facility] [address] [place] [address] Debi Hinkle, BUSINESS INTEGRATION MANAGER GA: 34w6d Social History Tobacco Use Types Packs/Day Years Used Date Smoking Tobacco: Never Smokeless Tobacco: Never Alcohol Use Standard Drinks/Week Comments No 0 (1 standard drink = 0.6 oz pur e alcohol) [place] Depression Scale Answer Date Recorded Retired [place] Depression Score 0 06/29/2018 Retired EPD Scale: [...] Reading Time Taken Comments Blood Pressure 112/80 04/17/2023 9:55 AM EDT Pulse - - Temperature - - Respiratory Rate - - Oxygen Saturation - - Inhaled Oxygen Concentration - - Weight 102 kg (224 lb 9.6 oz) 04/17/2023 9:55 AM EDT Height - - Body Mass Index 34.16 04/17/2022 3:36 PM EDT documented in this encounter Progress Notes * Debi Hinkle APRN - 04/17/2023 10:00 AM EDT Images from the original note were not included. OB FOLLOW UP CC- Here for care of Anders Cleary is a 22 y.o. 34w6d patient being seen today for her obstetrical follow upvisit. Patient reports pelvic pressure feels like baby pushing down. Her care is complicated by (and status) : None Patient Active Problem List Diagnosis ??? Encounter for IUD removal ? Obesity (BMI 30-39.9) ??? Screening for cervical cancer ??? Vaginal bleeding in ??? Placenta previa antepartum Flu Status: Declines Ultrasound Today: Yes Non Stress Test: No. ROS - Patient Reports : pelvic pressure Patient Denies: Loss of Fluid, Vaginal Spotting, Vision Changes, Headaches, Nausea , and Vomiting Movement : normal All other systems reviewed and are negative. The additional following portions of the patient's history were reviewed and updated as appropriate: allergies and current medications. I have reviewed and agree with the HPI, ROS, and historical information as entered above. Deib Hinkle BUSINESS INTEGRATION MANAGER BP 112/80 Wt 102 kg (224 lb 9.6 oz) LMP 08/17/2022 BMI 34.16 kg/m?? EXAM: Vitals BP: 112/80 Weight: 102 kg (224 lb 9.6 oz) Heart Rate: 134 Urine Glucose Read-only: Negative Urine Protein Read-only: Negative Assessment and Plan Problem List Items Addressed This Visit Gravid and - Primary Overview ; Prior 7#15 Boy. Ultrasound 09/28/2022 with 6-week 1/7 viable IUP. Repeat u/s in 2-3 wk. MBT A positive. E. coli UTI on urine culture. Treated with Macrobid Relevant Orders POC Glucose, Urine, Qualitative, Dipstick (Completed) POC Protein, Urine, Qualitative, Dipstick (Completed) 1. at 34w6d 2. status reassuring. 3. Activity and Exercise discussed. 4. movement/PTL or Labor precautions 5. GBS next visit Growth scan today. EFW= 63%, AC= 75%, LAKE= 12.1cm RTC in one week with Dr.Parrott Debi Hinkle APRN 04/17/2023 documented in this encounter Plan of Treatment Not on file documented as of this encounter Procedures Procedure Name Priority Date/Time Associated Diagnosis Comments POCT GLUCOSE, URINE, QUALITATIVE, DIPSTICK Routine 04/17/2023 10:23 AM EDT 34 weeks gestation of POCT PROTEIN, URINE, QUALITATIVE, DIPSTICK Routine 04/17/2023 10:23 AM EDT 34 weeks gestation of US OB FOLLOW UP TRANSABDOMINAL APPROACH Routine 04/17/2023 9:49 AM EDT 32 weeks gestation of documented in this encounter Results * POC Glucose, Urine, Qualitative, Dipstick (04/17/2023 10:23 AM EDT) Glucose, UA Negative Negative mg/dL [facility] Urine 04/17/2023 10:2 3 AM EDT us Debi Hinkle BUSINESS INTEGRATION MANAGER POINT OF CARE TEST ORDERAB LES Final Result [facility]
[address] [place] [address], * POC Protein, Urine, Qualitative, Dipstick (04/17/2023 10:23 AM EDT) Protein, POC Negative Negative mg/dL [facility] [address] [facility] Expiration Date 1 [facility] Urine 04/17/2023 10:2 3 AM EDT us Debi Skelton Manan BUSINESS INTEGRATION MANAGER POINT OF CARE TEST ORDERAB LES Final Result [facility]
[address] [place] [address], * US Ob Follow Up Transabdominal Approach (04/17/2023 9:49 AM EDT) Anatomical Region Laterality Modality Body Ultrasound 04/17/2023 9:31 AM EDT Narrative 05/03/2023 6:49 PM EDT PAT NAME: ANDERS CLEARY MED REC#: [id number] DA: 2000 PAT GEND: F PAT TYPE: O EXAM GABBY: [id number] REF PHYS SHAUNJACEK [place] Cane Flume Feeding Machine Operator Comments observed 06/05 bpp Indication ======== s<d [...] EFW (oz) 2 oz EFW by: Toribio ([id number]) Other: An ultrasound for weight has a [...] clinically indicated for the condition being monitored. Cane Flume Feeding Machine Operator: RT Amandeep Díaz, [facility] Physician: Jacek Dunn II, MD, FACOG Electronically signed by: Jacek Dunn II, MD, FACOG at: 18:49 Procedure Note Jacek Dunn MD - 05/03/2023 PAT NAME: ANDERS CLEARY MED REC#: [id number] DA: [id number] PAT GEND: F PAT TYPE: O EXAM GABBY: [id number] REF PHYS JACEK DUNN Cane Flume Feeding Machine Operator Comments observed 06/05 bpp Indication ======== s<d Comparison Studies The findings of this study are compared to the prior ultrasound studydated 12/26/2022 Method ======= Voluson E6, Transabdominal ultrasound examination ========= Orozco . Number of fetuses: 1 Dating ====== LMP on:08/17/2022 GA by LMP34 w + 5 d MAURILIO by LMP:05/24/2023 Method of dating:based on stated MAURILIO GA by prior [id number] w + 6 d MAURILIO by prior assessment:05/23/2023 Ultrasound examination on:04/17/2023 GA by U/S based upon:AC, BPD, Femur, HC GA by U/S36 w + 1 d MAURILIO by U/S:05/14/2023 Previous dating:based on stated MAURILIO, selected on 12/26/2022 Agreed MAURILIO of previous datin05/23/2023 Assigned:based on stated MAURILIO, selected on 04/17/2023 Assigned GA34 w + 6 d Assigned MAURILIO:05/23/2023 [email or web address] d General Evaluation Cardiac activity present. FHR [...] EFW (lb)6 lb EFW (oz)2 oz EFW by:Toribio ([id number]) Other:An ultrasound for weight has a margin of error of up totwenty percent. Extremities / Bony Struc FL / BPD0.78 FL / HC0.21 FL / AC0.22 Other Structures [id number] bpm Anatomy Lateral ventricles:Appears normal Lips:Appear normal Profile:Appears normal Nose:Appears normal 4-chamber view:Appears normal RVOT view:Appears normal LVOT view:Appears normal Stomach:Appears normal Kidneys:Appears normal Bladder:Appears normal Cervical spine:Appears normal Thoracic spine:Appears normal Lumbar spine:Appears normal Gender:male Wants to know gender:yes Impression Estimated weight 63 percentile. Amniotic fluid is normal. Vertex. heart tones 134. Recommendation Follow-up scan as clinically indicated for the condition beingmonitored. Cane Flume Feeding Machine Operator: RT Amandeep Díaz, [facility] Physician: Jacek Dunn II, MD, FACOG Electronically signed by: Jacek Dunn II, MD, FACOG at: 18:49 us Jacek Dunn MD [facility] ORDERABLES Final Result documented in this encounter Visit Diagnoses Diagnosis 34 weeks gestation of - Primary 32 weeks gestation of documented in this encounter Care Teams Internal Consultant Relationship Specialty Start Date End Date Anival Ames MD PCP - General Emergency Medicine 08/17/20 documented as of this encounter
--- OUTSIDE RECORDS SUMMARY | 2024-09-18 09:15 | XMS_ITS | Encounter Summary ---
Author Organization [facility] Address [address] [place] [address] Care Team Providers Care Pv Design And Installation Technician Name Role Phone Anival Ames MD Primary Care Provider [phone] Reason for Referral * Diagnostic Imaging (Routine) - Closed Specialty Diagnoses / Procedures Referred By Contact Referred To Contact Obstetrics and Gynecology Diagnoses Vaginal bleeding in care, subsequent , first trimester Placenta previa antepartum Procedures US Ob Limited 1 + Fetuses Franklin Rangel APRN [address] [address] Phone: tel: fax: [facility] [address] [address] Phone: tel: fax: Referral ID Status Reason Start Date Expiration Date Visits Re quested Visits Authorized [id number] Closed 11/13/2022 11/13/2023 1 1 Reason for Visit * Reason Comments Problem Encounter Details Date Type Department Care Team (Late Contact Info) Description 11/13/2022 11:00 AM EST Routine [facility] [address] [address] Franklin Rangel APRN [address] [address] GA: 12w5d Social History Tobacco Use Types Packs/Day Years Used Date Smoking Tobacco: Never Smokeless Tobacco: Never Alcohol Use Standard Drinks/Week Comments No 0 (1 standard drink = 0.6 oz pur e alcohol) [place] Depression Scale Answer Date Recorded Retired [place] Depression Score 0 06/29/2018 Retired EPD Scale: [...] Reading Time Taken Comments Blood Pressure 122/78 11/13/2022 12:09 PM EST Pulse - - Temperature - - Respiratory Rate - - Oxygen Saturation - - Inhaled Oxygen Concentration - - Weight 94.8 kg (209 lb) 11/13/2022 12:09 PM EST Height - - Body Mass Index 31.79 04/17/2022 3:36 PM EDT documented in this encounter Progress Notes * Franklin Rangel, INDUSTRIAL HEALTH ENGINEER - 11/13/2022 11:00 AM EST Images from the original note were not included. OB FOLLOW UP CC- Here for care of Anders Cleary is a 21 y.o. 12w5d patient being seen today for bleeding. It started 3 day(s) ago and has decreased since then. The bleeding was bright red and brown in color. It is currently brown. The patient's blood type is RH Positive. She denies recent intercourse. She has not had a recent cervical check. She does have associated pain. She states that Sunday she felt a gush of fluid and noted it was bright red. She went to [facility] where US was completed and told everything looked ok, but unable to view placenta . She states she was having cramping and low back pain at this time. She also states she has had an episode of feeling clammy and pre-syncopal this weekend while cooking dinner. She states slight cramping today with brown d/c. She finished Keflex on 11/09 for UTI. Her care is complicated by (and status) : Patient Active Problem List Diagnosis ??? Encounter for IUD removal ? Obesity (BMI 30-39.9) ??? Screening for cervical cancer ??? Vaginal bleeding in ??? Placenta previa antepartum Ultrasound Today: Yes. Findings showed single IUP, FHR 162 with posterior placenta; previa due to early gest age. CRL measuring 13w5d. LMP dates 12w4d. 2.68cm simple cyst noted on right ovary. I havepersonally evaluated the U/S and agree with the findings. Franklin Rangel APRN ROS - Patient Reports : Vaginal Spotting and Cramping Patient Denies: Loss of Fluid, Vision Changes and Headaches Light headedness, dizziness Movement : absent All other systems reviewed and are negative. The additional following portions of the patient's history were reviewed and updated as appropriate: allergies and current medications. I have reviewed and agree with the HPI, ROS, and historical information as entered above. Franklin Rangel APRN BP 122/78 Wt 94.8 kg (209 lb) LMP 08/17/2022 BMI 31.79 kg/m?? EXAM: Vitals BP: 122/78 Weight: 94.8 kg (209 lb) Heart Rate: 162 Assessment and Plan Problem List Items Addressed This Visit Gravid and Vaginal bleeding in - Primary Relevant Orders POC Urinalysis Dipstick (Completed) US Ob Limited 1 + Fetuses Placenta previa antepartum Relevant Orders US Ob Limited 1 + Fetuses Other Visit Diagnoses care, subsequent , first trimester Relevant Orders Urine Culture - Urine, Urine, Clean Catch US Ob Limited 1 + Fetuses 1. at 12w5d 2. status reassuring. 3. US done today. Viable IUP 4. Advised pelvic rest, avoid heavy lifting, bleeding precautions reviewed. 5. CCUA negative, will send for culture. Will notify patient if results are positive for abx. 6. Increase PO fluids to 80 oz/day 7. Return for regularly scheduled OB appointment with US. 8. RTC for worsening symptoms 9. Advised to go to ED for severe pain and/or bleeding. Return in about 15 days (around 11/28/2022) for ROSY w/ OP and US (Check previa). Franklin Rangel APRN 11/13/2022 documented in this encounter Plan of Treatment Not on file documented as of this encounter Procedures Procedure Name Priority Date/Time Associated Diagnosis Comments POCT URINALYSIS DIPSTICK, MANUAL Routine 11/13/2022 12:15 PM EST Vaginal bleeding in documented in this encounter Results * US Ob Limited 1 + Fetuses (11/28/2022 11:01 AM EST) Anatomical Region Laterality Modality Body Ultrasound 11/28/2022 10:3 4 AM EST Narrative 12/21/2022 9:44 PM EST PAT NAME: ANDERS CLEARY MED REC#: [id number] DA: [id number] PAT GEND: F PAT TYPE: O EXAM GABBY: [id number] REF PHYS FRANKLIN RANGEL Snuff Grinder Comments low lying placenta Indication ======== previa with bleeding Comparison Studies The findings of this study are compared to the prior ultrasound study dated 11/13/2022 ========= Orozco . Number of fetuses: 1 Dating ====== LMP on: 08/17/2022 GA by LMP 14 w + 5 d MAURILIO by LMP: 05/24/2023 Method of dating: based on stated MAURILIO GA by prior assessment 14 w + 6 d MAURILIO by prior assessment: 05/23/2023 Previous dating: based on stated MAURILIO, selected on 11/13/2022 Agreed MAURILIO of previous datin05/23/2023 Assigned: based on stated MAURILIO, selected on 11/28/2022 Assigned GA 14 w + 6 d Assigned MAURILIO: 05/23/2023 length 280 d General Evaluation Cardiac activity present. FHR 146 bpm. movements present. Presentation breech. Placenta Placental site: posterior, low lying appears to be 1 cm from io. Umbilical cord Cord vessels: undetermined. Amniotic fluid Amount of AF: normal. Maternal Structures Uterus / Cervix Cervical length 40.3 mm Impression Single viable intrauterine at 14 weeks 6 days due May 23, 2023. Placenta posterior low-lying 1 cm from internal os. Amniotic fluid normal Recommendation Follow-up scan as clinically indicated for the condition being monitored. Snuff Grinder: RT Amandeep Díaz, [facility] Physician: Jacek Walters II, MD, FACOG Electronically signed by: Jacek Walters II, MD, FACOG at: 21:44 Procedure Note Jacek Walters MD - 12/21/2022 PAT NAME: ANDERS CLEARY MED REC#: [id number] DA: [id number] PAT GEND: F PAT TYPE: O EXAM GABBY: [id number] REF PHYS FRANKLIN RANGEL Snuff Grinder Comments low lying placenta Indication ======== previa with bleeding Comparison Studies The findings of this study are compared to the prior ultrasound studydated 11/13/2022 ========= Orozco . Number of fetuses: 1 Dating ====== LMP on:08/17/2022 GA by LMP14 w + 5 d MAURILIO by LMP:05/24/2023 Method of dating:based on stated MAURILIO GA by prior w + 6 d MAURILIO by prior assessment:05/23/2023 Previous dating:based on stated MAURILIO, selected on 11/13/2022 Agreed MAURILIO of previous datin05/23/2023 Assigned:based on stated MAURILIO, selected on 11/28/2022 Assigned GA14 w + 6 d Assigned MAURILIO:05/23/2023 [email or web address] d General Evaluation Cardiac activity present. FHR 146 bpm. movements present. Presentation breech. Placenta Placental site: posterior, low lying appears to be 1 cm fromio. Umbilical cord Cord vessels: undetermined. Amniotic fluid Amount of AF: normal. Maternal Structures Uterus / Cervix Cervical [id number] mm Impression Single viable intrauterine at 14 weeks 6 days due May 23, 2023.Placenta posterior low-lying 1 cm from internal os. Amniotic fluidnormal Recommendation Follow-up scan as clinically indicated for the condition beingmonitored. Snuff Grinder: RT Amandeep Díaz, [facility] Physician: Jacek Walters II, MD, FACOG Electronically signed by: Jacek Walters II, MD, FACOG at: 1:44 Franklin Rangel INDUSTRIAL HEALTH ENGINEER [facility] US ORDERABLES Final Re sult * (ABNORMAL) POC Urinalysis Dipstick (11/13/2022 12:15 PM EST) Color Dark Yellow Yellow, Straw, Dark Yellow, Maria Del Rosario [facility] Clarity, UA Clear Clear [facility] Glucose, UA Negative Negative mg/dL [facility] Bilirubin Negative Negative [facility] Ketones, UA Negative Negative [facility] Specific Browns 1.025 1.005 - 1.030 [facility] Blood, UA 1+(A) Negative [facility] pH, Urine 6.0 5.0 - 8.0 [facility] Protein, POC 1+(A) Negative mg/dL [facility] Urobilinogen, UA Normal Normal, 0.2 E.U./dL [facility] Leukocytes Negative Negative [facility] Nitrite, UA Negative Negative [facility] Urine 11/13/2022 12:1 5 PM EST Franklin Shameka Rangel INDUSTRIAL HEALTH ENGINEER POINT OF CARE TEST ORDERAB LES Final Result [facility]
[address] [place] [address], documented in this encounter Visit Diagnoses Diagnosis Vaginal bleeding in - Primary care, subsequent , first trimester Placenta previa antepartum Placenta previa without hemorrhage, antepartum Vaginal bleeding in care, subsequent , first trimester Placenta previa antepartum Placenta previa without hemorrhage, antepartum documented in this encounter Care Teams Pv Design And Installation Technician Relationship Specialty Start Date End Date Anival Ames MD PCP - General Emergency Medicine 08/17/20 documented as of this encounter
--- OUTSIDE RECORDS SUMMARY | 2024-09-18 09:15 | XMS_ITS | Encounter Summary ---
Author Organization [facility] Address [address] [place] [address] Care Team Providers Care Vehicle Painter Name Role Phone Anival Ames MD Primary Care Provider [phone] Reason for Visit * Diagnostic Imaging (Routine) - Closed Specialty Diagnoses / Procedures Referred By Contact Referred To Contact Obstetrics and Gynecology Diagnoses Vaginal bleeding in care, subsequent , first trimester Placenta previa antepartum Procedures US Ob Limited 1 + Fetuses Franklin Rangel, DEVELOPMENT SCIENTIST [address] [place] [id number] Phone: tel: fax: [facility] [address] [address] Phone: tel: fax: Referral ID Status Reason Start Date Expiration Date Visits Re quested Visits Authorized [id number] Closed 11/13/2022 11/13/2023 1 1 Encounter Details Date Type Department Care Team (Latest Contact Info) Description 11/28/2022 10:30 AM EST Ancillary Procedure [facility] [address] [place] [address] Vaginal bleeding in ; care, subsequent , first trimester; Placenta previa antepartum Social History Tobacco Use Types Packs/Day Years Used Date Smoking Tobacco: Never Smokeless Tobacco: Never Alcohol Use Standard Drinks/Week Comments No 0 (1 standard drink = 0.6 oz pur e alcohol) [place] Depression Scale Answer Date Recorded Retired [place] Depression Score 0 06/29/2018 Retired EPD Scale: [...] US OB LIMITED 1 + FETUSES Routine 11/28/2022 11:01 AM EST Vaginal bleeding in care, subsequent , first trimester Placenta previa antepartum documented in this encounter Results * US Ob Limited 1 + Fetuses (11/28/2022 11:01 AM EST) Anatomical Region Laterality Modality Body Ultrasound 11/28/2022 10:3 4 AM EST Narrative 12/21/2022 9:44 PM EST PAT NAME: ANDERS CLEARY MED REC#: [id number] DA: [id number] PAT GEND: F PAT TYPE: O EXAM GABBY: [id number] REF PHYS FRANKLIN RANGEL Payroll And Benefits Analyst Comments low lying placenta Indication ======== previa [...] clinically indicated for the condition being monitored. Payroll And Benefits Analyst: RT Amandeep Díaz, [facility] Physician: Jacek Walters II, MD, FACOG Electronically signed by: Jacek Walters II, MD, FACOG at: 21:44 Procedure Note Jacek Walters MD - 12/21/2022 PAT NAME: ANDERS CLEARY MED REC#: [id number] DA: 2000 PAT GEND: F PAT TYPE: O EXAM GABBY: [id number] REF PHYS FRANKLIN RANGEL Payroll And Benefits Analyst Comments low lying placenta Indication ======== previa with bleeding Comparison Studies The findings of this study are compared to the prior ultrasound studydated 11/13/2022 ========= Orozco . Number of fetuses: 1 Dating ====== LMP on:08/17/2022 GA by LMP14 w + 5 d MAURILIO by LMP:05/24/2023 Method of dating:based on stated MAURILIO GA by prior [id number] w + 6 d MAURILIO by prior assessment:05/23/2023 Previous dating:based on stated MAURILIO, selected on 11/13/2022 Agreed MAURILIO of previous datin05/23/2023 Assigned:based on stated MAURILIO, selected on 11/28/2022 Assigned GA14 w + 6 d Assigned MAURILIO:05/23/2023 [email or web address] d General Evaluation Cardiac activity present. FHR 146 bpm. movements present. Presentation breech. Placenta Placental site: posterior, low lying appears to be 1 cm fromio. Umbilical cord Cord vessels: undetermined. Amniotic fluid Amount of AF: normal. Maternal Structures Uterus / Cervix Cervical uzxvop16.3 mm Impression Single viable intrauterine at 14 weeks 6 days due May 23, 2023.Placenta posterior low-lying 1 cm from internal os. Amniotic fluidnormal Recommendation Follow-up scan as clinically indicated for the condition beingmonitored. Payroll And Benefits Analyst: RT Amandeep Díaz, [facility] Physician: Jacek Walters II, MD, FACOG Electronically signed by: Jacek Walters II, MD, FACOG at: :44 us Franklin N Fishback DEVELOPMENT SCIENTIST IMG US ORDERABLES Final Re sult documented in this encounter Visit Diagnoses Diagnosis Vaginal bleeding in care, subsequent , first trimester Placenta previa antepartum Placenta previa without hemorrhage, antepartum documented in this encounter Care Teams Vehicle Painter Relationship Specialty Start Date End Date Anival Ames MD PCP - General Emergency Medicine 08/17/20 documented as of this encounter
--- OUTSIDE RECORDS SUMMARY | 2024-09-18 09:15 | XMS_ITS | Encounter Summary ---
[facility] Address [address] [place] [id number] Care Team Providers Care Avionics Supervisor Name Role Phone Anival Ames MD Primary Care Provider [phone] Encounter Details Date Type Department Care Team (Late st Contact Info) Description 02/16/2023 Telephone [facility] OBGYN [address] [address] Jacek Walters MD 1700 [facility] [address] [place] [address] Social History Tobacco Use Types Packs/Day Years Used Date Smoking Tobacco: Never Smokeless Tobacco: Never Alcohol Use Standard Drinks/Week Comments No 0 (1 standard drink = 0.6 oz pur e alcohol) [place]enn[place] Depression Scale Answer Date Recorded Retired [place] Depression Score 0 06/29/2018 Retired EPD Scale: [...] as of this encounter Progress Notes * Marysol Martinez RN - 02/16/2023 2:26 PM EDTAddended by: MARYSOL MARTINEZ on: 02/16/2023 02:26 PM Modules accepted: Orders documented in this encounter Miscellaneous Notes * Telephone Encounter - Marysol Martinez RN - 02/16/2023 2:25 PM EDT Informed patient of OP recommendations and she v/u. Rx sent. * Telephone Encounter - Marysol Martinez RN - 02/16/2023 12:00 PM EDT Attempted to call patient. No answer and no VM set up. * Telephone Encounter - Marysol Martinez RN - 02/16/2023 11:34 AM EDT Per OP- Per OP ok to rx macrobid 100mg BID x7 days for + CCUA at work and back pain. Attempted to call patient to verify pharmacy. No answer and no VM set up. * Telephone Encounter - Rubina Collins RegSched Rep - 02/16/2023 11:15 AM EDT Pt missed call from office. Pt returning call documented in this encounter Plan of Treatment Not on file documented as of this encounter Visit Diagnoses Not on filedocumented in this encounter Care Teams Avionics Supervisor Relationship Specialty Start Date End Date Anival Ames MD PCP - General Emergency Medicine 08/17/20 documented as of this encounter
--- OUTSIDE RECORDS SUMMARY | 2024-09-18 09:15 | XMS_ITS | Encounter Summary ---
Author Organization [facility] Address [address] [place] [address] Care Team Providers Care Invisible Braces Orthodontist Name Role Phone Anival Aems MD Primary Care Provider [phone] Reason for Visit * Reason Onset Date Comments OB CONCERN-SHAUN 10/03/2022 Encounter Details Date Type Department Care Team (Late st Contact Info) Description 10/03/2022 Telephone [facility] OBGYN [address] [place] [address] Jacek Walters MD [address] [place] [address] OB CONCERN-SHAUN Social History Tobacco Use Types Packs/Day Years Used Date Smoking Tobacco: Never Smokeless Tobacco: Never Alcohol Use Standard Drinks/Week Comments No 0 (1 standard drink = 0.6 oz pur e alcohol) Tibbie Depression Scale Answer Date Recorded Retired Tibbie Depression Score 0 06/29/2018 Retired EPD Scale: [...] encounter Miscellaneous Notes * Telephone Encounter - Alisha Mcclain RN - 10/03/2022 11:19 AM EST Pt is A+ Pt is a pt of , will switch over to Shaun who delivered her previous children 6w 6 d Saw Alberta on 09/28/22 for New OB and US, viable IUP, plan was to come back in 2- 3 weeks for repeat US to check viability. Pt called reporting light spotting with no cramping that started yesterday that has now increased to more then spotting that is dark brown in color. No clots or tissue present. Cramping now present to lower pelvis. She denies any spotting in the past, this is a new finding. Spoke with Debi Hinkle APRN-pt to come in today for appt with US for evaluation. Appt scheduled with Debi for today at 4:15 with US prior. -Nedra Brito * Telephone Encounter - Margret Florentino RegSched Rep - 10/03/2022 9:30 AM EST PT RETURNING CALL PLEASE CALL BACK @ [phone] * Telephone Encounter - Alisha Mcclain RN - 10/03/2022 9:23 AM EST Attempted to call patient, no voicemail set up, unable to leave a message for call back. -NEDRA Brito * Telephone Encounter - Thalia Viveros RegSched Rep - 10/03/2022 8:35 AM EST Caller: Geovani Cleary Relationship to patient: Self Best call back number:[phone] Patient is needing: PT HAS BEEN EXPERIENCING LIGHT BLEEDING, SOME CRAMPING, WANTS TO SPEAK WITH CLINICAL STAFF. documented in this encounter Plan of Treatment Not on file documented as of this encounter Visit Diagnoses Not on filedocumented in this encounter Care Teams Invisible Braces Orthodontist Relationship Specialty Start Date End Date Anival Ames MD PCP - General Emergency Medicine 08/17/20 documented as of this encounter
--- OUTSIDE RECORDS SUMMARY | 2024-09-18 09:15 | XMS_ITS | Encounter Summary ---
Author Organization [facility] Address [address] [place] [address] Care Team Providers Care Incident Handler Name Role Phone Anival Ames MD Primary Care Provider [phone] Reason for Visit * Diagnostic Imaging (Routine) - Closed Specialty Diagnoses / Procedures Referred By Contac t Referred To Contact Radiology Diagnoses Initial obstetric visit in first trimester Procedures US Ob < 14 Weeks Single or First Gestation US Ob Transvaginal Kelsie Valera MD 1700 [facility] [address] [place] [address] Phone: tel: fax: [facility] OBGYN [address] [place] [address] Phone: tel: fax: Referral ID Status Reason Start Date Expiration Date Visits Re quested Visits Authorized [id number] Closed 09/28/2022 09/28/2023 1 1 Encounter Details Date Type Department Care Team (Latest Contact Info) Description 10/03/2022 4:00 PM EST Ancillary Procedure [facility] OBGYN [address] [place] [address] Initial obstetric visit in first trimester Social History Tobacco Use Types Packs/Day Years Used Date Smoking Tobacco: Never Smokeless Tobacco: Never Alcohol Use Standard Drinks/Week Comments No 0 (1 standard drink = 0.6 oz pur e alcohol) [place] Depression Scale Answer Date Recorded Retired [place] Depression Score 0 06/29/2018 Retired EPD Scale: [...] 14 WEEKS SINGLE OR FIRST GESTATION Routine 10/03/2022 4:18 PM EST Initial obstetric visit in first trimester documented in this encounter Results * US Ob < 14 Weeks Single or First Gestation (10/03/2022 4:18 PM EST) Anatomical Region Laterality Modality Body Ultrasound 10/03/2022 4:04 PM EST Narrative 10/04/2022 3:28 PM EST PAT NAME: ANDERS CLEARY MED REC#: [id number] DA: [id number] PAT GEND: F PAT TYPE: O EXAM GABBY: [id number] REF PHYS KELSIE VALERA Indication ======== Threatened Ab. Dating Comparison Studies The findings of this study are compared to the prior ultrasound study dated 09/28/2022 Method ======= Voluson E6, Transabdominal ultrasound examination. View: Adequate view ========= Orozco . Number of gestational sacs: 1 Single intrauterine present Dating ====== LMP on: 08/17/2022 GA by LMP 6 w + 5 d MAURILIO by LMP: 05/24/2023 Method of dating: based on stated MAURILIO GA by prior assessment 6 w + 6 d MAURILIO by prior assessment: 05/23/2023 Ultrasound examination on: 10/03/2022 GA by U/S based upon: CRL GA by U/S 7 w + 0 d MAURILIO by U/S: 05/22/2023 Previous dating: based on the LMP, selected on 09/28/2022 Agreed MAURILIO of previous datin05/24/2023 Assigned: based on stated MAURILIO, selected on 10/03/2022 Assigned GA 6 w + 6 d Assigned MAURILIO: 05/23/2023 length 280 d Biometry Standard FHR 137 bpm CRL 9.3 mm 7w 0d ?96% ?[facility] General Evaluation Cardiac activity present. Placenta Too early to evaluate. Amniotic fluid normal. Maternal Structures Uterus / Cervix Uterus: Visualized Uterus position: Anteverted Cervix: Visualized Ovaries / Tubes / Adnexa Rt ovary: Not visualized Lt ovary: Not visualized Impression Single viable intrauterine with normal cardiac activity and biometry consistent with clinical dates Recommendation Follow-up as clinically indicated. Outdoor Advertising Leasing Agent: RT Amandeep Díaz, [facility] Physician: Connor Valera MD, FACOG Electronically signed by: Connor Valera MD, FACOG at: 15:28 Procedure Note Kelsie Valera MD - 10/04/2022 PAT NAME: ANDERS CLEARY MED REC#: [id number] DA: 2000 PAT GEND: F PAT TYPE: O EXAM GABBY: [id number] REF PHYS KELSIE VALERA Indication ======== Threatened Ab. Dating Comparison Studies The findings of this study are compared to the prior ultrasound studydated 09/28/2022 Method ======= Voluson E6, Transabdominal ultrasound examination. View: Adequate view ========= Orozco . Number of gestational sacs: 1 Single intrauterine present Dating ====== LMP on:08/17/2022 GA by LMP6 w + 5 d MAURILIO by LMP:05/24/2023 Method of dating:based on stated MAURILIO GA by prior assessment6 w + 6 d MAURILIO by prior assessment:05/23/2023 Ultrasound examination on:10/03/2022 GA by U/S based upon:CRL GA by U/S7 w + 0 d MAURILIO by U/S:05/22/2023 Previous dating:based on the LMP, selected on 09/28/2022 Agreed MAURILIO of previous datin05/24/2023 Assigned:based on stated MAURILIO, selected on 10/03/2022 Assigned GA6 w + 6 d Assigned MAURILIO:05/23/2023 [id number] d Biometry Standard UWQ487 bpm CRL9.3 mm 7w 0d 96% [facility] General Evaluation Cardiac activity present. Placenta Too early to evaluate. Amniotic fluid normal. Maternal Structures Uterus / Cervix Uterus:Visualized Uterus position:Anteverted Cervix:Visualized Ovaries / Tubes / Adnexa Rt ovary:Not visualized Lt ovary:Not visualized Impression Single viable intrauterine with normal cardiac activity andbiometry consistent with clinical dates Recommendation Follow-up as clinically indicated. Outdoor Advertising Leasing Agent: Greyson Sharp RT R, [facility] Physician: Connor Valera MD, FACOG Electronically signed by: Connor Valera MD, FACOG at: 0715:28 Kelsie Valera MD [facility] [place] ORDER[place]LES Final Re sult documented in this encounter Visit Diagnoses Diagnosis Initial obstetric visit in first trimester documented in this encounter Care Teams Incident Handler Relationship Specialty Start Date End Date Anival Ames MD PCP - General Emergency Medicine 08/17/20 documented as of this encounter
--- OUTSIDE RECORDS SUMMARY | 2024-09-18 09:15 | XMS_ITS | Encounter Summary ---
[facility] Address [address] [place] [address] Care Team Providers Care Transformer Inspector Name Role Phone Anival Ames MD Primary Care Provider [phone] Encounter Details Date Type Department Care Team (Late st Contact Info) Description 10/02/2022 Telephone [facility] OBGYN [address] [address] Roland Pinzon MD 1700 [facility] [address] [place] [address] Social History Tobacco Use Types Packs/Day Years Used Date Smoking Tobacco: Never Smokeless Tobacco: Never Alcohol Use Standard Drinks/Week Comments No 0 (1 standard drink = 0.6 oz pur e alcohol) [place] Depression Scale Answer Date Recorded Retired [place] Depression Score 0 06/29/2018 Retired EPD Scale: [...] encounter Miscellaneous Notes * Telephone Encounter - Roland Pinzon MD - 10/02/2022 6:32 PM EST urine culture positive for E. coli sensitive to Macrobid. Rx for Macrobid sent to pharmacy. documented in this encounter Plan of Treatment Not on file documented as of this encounter Visit Diagnoses Not on filedocumented in this encounter Care Teams Transformer Inspector Relationship Specialty Start Date End Date Anival Ames MD PCP - General Emergency Medicine 08/17/20 documented as of this encounter
--- OUTSIDE RECORDS SUMMARY | 2024-09-18 09:15 | XMS_ITS | Encounter Summary ---
[facility] Address [address] [place] [address] Care Team Providers Care Medical Clerk Name Role Phone Anival Ames MD Primary Care Provider [phone] Reason for Visit * Reason Comments Routine Visit 30w6d Encounter Details Date Type Department Care Team (Late st Contact Info) Description 03/20/2023 9:50 AM EDT Routine [facility] OBGYN [address] [place] [address] Jacek Walters MD [address] [place] [address] GA: 30w6d Social History Tobacco Use Types Packs/Day Years Used Date Smoking Tobacco: Never Smokeless Tobacco: Never Alcohol Use Standard Drinks/Week Comments No 0 (1 standard drink = 0.6 oz pur e alcohol) [place] Depression Scale Answer Date Recorded Retired [place] Depression Score 0 06/29/2018 Retired EPD Scale: [...] Sign Reading Time Taken Comments Blood Pressure 138/76 03/20/2023 9:44 AM EDT Pulse - - Temperature - - Respiratory Rate - - Oxygen Saturation - - Inhaled Oxygen Concentration - - Weight 102 kg (224 lb) 03/20/2023 9:44 AM EDT Height - - Body Mass Index 34.07 04/17/2022 3:36 PM EDT documented in this encounter Progress Notes * Jacek Walters MD - 03/20/2023 9:50 AM EDT Images from the original note were not included. OB FOLLOW UP CC- Here for care of Geovani Celary is a 22 y.o. 30w6d patient being seen today for her obstetrical follow upvisit. Patient reports pelvic pain. Her care is complicated by (and status) : None Patient Active Problem List Diagnosis ??? Encounter for IUD removal ? Obesity (BMI 30-39.9) ??? Screening for cervical cancer ??? Vaginal bleeding in ??? Placenta previa antepartum Flu Status: Declines TDAP status: declines Rhogam status: was not indicated 28 week labs: Reviewed and normal Ultrasound Today: No Non Stress Test: No. ROS - Patient Reports : pelvic pain Patient Denies: Loss of Fluid, Vaginal Spotting, Vision Changes, Headaches, Nausea , Vomiting and Contractions Movement : normal All other systems reviewed and are negative. The additional following portions of the patient's history were reviewed and updated as appropriate: allergies and current medications. I have reviewed and agree with the HPI, ROS, and historical information as entered above. Jacek Walters MD BP 138/76 Wt 102 kg (224 lb) LMP 08/17/2022 BMI 34.07 kg/m?? EXAM: Vitals BP: 138/76 Weight: 102 kg (224 lb) Heart Rate: 145 Urine Glucose Read-only: [...] Prior 7#15 Boy. Ultrasound 09/28/2022 with 6-week /7 viable IUP. Repeat u/s in 2-3 wk. MBT A positive. E. coli UTI on urine culture. Treated with Macrobid 1. at 30w6d 2. status reassuring. 3. 28 week labs reviewed. 4. Activity and Exercise discussed. 5. movement/PTL or Labor precautions 6. Patient is on vitamins Return in about 2 weeks (around 04/03/2023) for Recheck. Jacek Walters MD 03/20/2023 documented in this encounter Plan of Treatment Not on file documented as of this encounter Procedures Procedure Name Priority Date/Time Associated Diagnosis Comments POCT URINALYSIS DIPSTICK, MANUAL Routine 03/20/2023 documented in this encounter Results * (ABNORMAL) POC Urinalysis Dipstick (03/20/2023) Glucose, UA Negative Negative Protein, POC 1+(A) Negative Urine Historical Provider POINT OF CARE TEST ORDERA BLES Final Result documented in this encounter Visit Diagnoses Diagnosis 30 weeks gestation of - Primary Obesity (BMI 30-39.9) Screening for cervical cancer Screening for malignant neoplasm of the cervix documented in this encounter Care Teams Medical Clerk Relationship Specialty Start Date End Date Anival Ames MD PCP - General Emergency Medicine 08/17/20 documented as of this encounter
--- OUTSIDE RECORDS SUMMARY | 2024-09-18 09:15 | XMS_ITS | Encounter Summary ---
[facility] Address [address] [place] [address] Care Team Providers Care Sapphire Stylus Grinder Name Role Phone Anival Ames MD Primary Care Provider [phone] Encounter Details Date Type Department Care Team (Late st Contact Info) Description 02/16/2023 Telephone [facility] OBGYN [address] [address] Jacek Walters MD 1700 [facility] [address] [place] [address] Social History Tobacco Use Types Packs/Day Years Used Date Smoking Tobacco: Never Smokeless Tobacco: Never Alcohol Use Standard Drinks/Week Comments No 0 (1 standard drink = 0.6 oz pur e alcohol) Lincoln Depression Scale Answer Date Recorded Retired [place] Depression Score 0 06/29/2018 Retired EPD Scale: [...] encounter Miscellaneous Notes * Telephone Encounter - Anabell Alcantar RegSched Rep - 02/16/2023 9:59 AM EDT A user error has taken place: encounter opened in error, closed for administrative reasons. documented in this encounter Plan of Treatment Not on file documented as of this encounter Visit Diagnoses Not on filedocumented in this encounter Care Teams Sapphire Stylus Grinder Relationship Specialty Start Date End Date Anival Ames MD PCP - General Emergency Medicine 08/17/20 documented as of this encounter
--- OUTSIDE RECORDS SUMMARY | 2024-09-18 09:15 | XMS_ITS | Encounter Summary ---
[facility] Address [address] [place] [address] Care Team Providers Care Housekeeping Aide Name Role Phone Anival Ames MD Primary Care Provider [phone] Reason for Visit * Reason Comments Routine Visit 22w6d Encounter Details Date Type Department Care Team (Late st Contact Info) Description 01/23/2023 10:40 AM EDT Routine [facility] OBGYN [address] [place] [address] Jacek Walters MD [address] [place] [address] GA: 22w6d Social History Tobacco Use Types Packs/Day Years Used Date Smoking Tobacco: Never Smokeless Tobacco: Never Alcohol Use Standard Drinks/Week Comments No 0 (1 standard drink = 0.6 oz pur e alcohol) [place] Depression Scale Answer Date Recorded Retired [place] Depression Score 0 06/29/2018 Retired EPD Scale: [...] Sign Reading Time Taken Comments Blood Pressure 122/80 01/23/2023 11:09 AM EDT Pulse - - Temperature - - Respiratory Rate - - Oxygen Saturation - - Inhaled Oxygen Concentration - - Weight 97.5 kg (215 lb) 01/23/2023 11:09 AM EDT Height - - Body Mass Index 32.7 04/17/2022 3:36 PM EDT documented in this encounter Progress Notes * Jacek Walters MD - 01/23/2023 10:40 AM EDT Images from the original note were not included. OB FOLLOW UP CC- Here for care of Geovani Cleary is a 22 y.o. 22w6d patient being seen today for her obstetrical follow up visit. Patient reports constipation and rib pain encouraged patient to take stool softner everyday [place] everyday To get relief . Her care is complicated by (and status) : None Patient Active Problem List Diagnosis ??? Encounter for IUD removal ? Obesity (BMI 30-39.9) ??? Screening for cervical cancer ??? Vaginal bleeding in ??? Placenta previa antepartum Flu Status: Declines Ultrasound Today: No ROS - Patient Reports : Epigastric Pain Patient Denies: Loss of Fluid, Vaginal Spotting, Vision Changes, Headaches, Nausea , Vomiting and Contractions Movement : normal All other systems reviewed and are negative. The additional following portions of the patient's history were reviewed and updated as appropriate: allergies and current medications. I have reviewed and agree with the HPI, ROS, and historical information as entered above. Jacek Walters MD BP 122/80 Wt 97.5 kg (215 lb) LMP 08/17/2022 BMI 32.70 kg/m?? EXAM: Vitals BP: 122/80 Weight: 97.5 kg (215 lb) Heart Rate: 150 Urine Glucose Read-only: (!) Trace Urine Protein Read-only: Negative Assessment and Plan [...] urine culture. Treated with Macrobid Relevant Orders Antibody Screen CBC (No Diff) Gestational Screen 1 Hr ([facility]) Glucose, Post 50 Gm Glucola 1. at 22w6d 2. status reassuring. 3. anatomy scan completed today and within normal limits. 4. 1 hour gtt, CBC, Antibody screen and TDAP next visit. Instructions given 5. Discussed/encouraged TDAP vaccination after 28 weeks 6. Activity and Exercise discussed. Return in about 1 month (around 02/23/2023) for bs. Jacek Walters MD 01/23/2023 documented in this encounter Plan of Treatment Not on file documented as of this encounter Procedures Procedure Name Priority Date/Time Associated Diagnosis Comments POCT URINALYSIS DIPSTICK, MANUAL Routine 01/23/2023 documented in this encounter Results * (ABNORMAL) POC Urinalysis Dipstick (01/23/2023) Glucose, UA Trace(A) Negative Protein, POC Negative Negative Urine us Historical Provider POINT OF CARE TEST ORDERA BLES Final Result documented in this encounter Visit Diagnoses Diagnosis Less than 8 weeks gestation of - Primary Obesity (BMI 30-39.9) Screening for cervical cancer Screening for malignant neoplasm of the cervix documented in this encounter Care Teams Housekeeping Aide Relationship Specialty Start Date End Date Anival Ames MD PCP - General Emergency Medicine 08/17/20 documented as of this encounter
--- OUTSIDE RECORDS SUMMARY | 2024-09-18 09:15 | XMS_ITS | Encounter Summary ---
Author Organization [facility] Address [address] [place] [address] Care Team Providers Care Geological Scout Name Role Phone Anival Ames MD Primary Care Provider [phone] Reason for Visit * Diagnostic Imaging (Routine) - Closed Specialty Diagnoses / Procedures Referred By Contact Referred To Contact Obstetrics and Gynecology Diagnoses Vaginal bleeding in Procedures US Ob < 14 Weeks Single or First Gestation Wanda Hylton APRN [address] [place] [address] Phone: tel: fax: [facility] OBGYN [address] [address] Phone: tel: fax: Referral ID Status Reason Start Date Expiration Date Visits Re quested Visits Authorized [id number] Closed 11/13/2022 11/13/2023 1 1 Encounter Details Date Type Department Care Team (Late st Contact Info) Description 11/13/2022 10:30 AM EST Ancillary Procedure [facility] OBGYN [address] [address] Social History Tobacco Use Types Packs/Day Years Used Date Smoking Tobacco: Never Smokeless Tobacco: Never Alcohol Use Standard Drinks/Week Comments No 0 (1 standard drink = 0.6 oz pur e alcohol) [place]cal[place] Depression Scale Answer Date Recorded Retired [place] Depression Score 0 06/29/2018 Retired EPD Scale: [...] EST PAT NAME: ANDERS CLEARY MED REC#: [id number] DA: 2000 PAT GEND: F PAT TYPE: O EXAM GABBY: [id number] REF PHYS WANDA HYLTON Indication ======== follow [...] early age. Recommendation Follow-up as clinically indicated. Insemination Worker: RT Amandeep Silveira, [facility] Physician: Jacek Walters II, MD, FACOG Electronically signed by: Jacek Walters II, MD, FACOG at: 19:01 Procedure Note Jacek Walters MD - 11/14/2022 PAT NAME: ANDERS CLEARY MED REC#: [id number] DA: [id number] PAT GEND: F PAT TYPE: O EXAM GABBY: [id number] REF PHYS WANDA HYLTON Indication ======== follow [...] dating:based on stated MAURILIO GA by prior [id number] w + 5 d MAURILIO by prior assessment:05/23/2023 Ultrasound examination on:11/13/2022 GA by U/S based upon:CRL GA by U/S13 w + 5 d MAURILIO by U/S:05/16/2023 Previous dating:based on stated MAURILIO, selected on 10/24/2022 Agreed MAURILIO of previous datin05/23/2023 Assigned:based on stated MAURILIO, selected on 11/13/2022 Assigned GA12 w + 5 d Assigned MAURILIO:05/23/2023 [id number] d Biometry Standard PBR307 bpm 57% Nicolaides CRL76.0 mm 13w 5d [...] to earlyage. Recommendation Follow-up as clinically indicated. Insemination Worker: RT Raoul R, [facility] Physician: Jacek Walters II, MD, FACOG Electronically signed by: Jacek Walters II, MD, FACOG at: 1719:01 us Wanda Hylton APRN IMG US ORDERABLES Fi nal Result documented in this encounter Visit Diagnoses Not on filedocumented in this encounter Care Teams Geological Scout Relationship Specialty Start Date End Date Anival Ames MD PCP - General Emergency Medicine 08/17/20 documented as of this encounter
--- OUTSIDE RECORDS SUMMARY | 2024-09-18 09:15 | XMS_ITS | Encounter Summary ---
Author Organization [facility] Address [address] [place] [address] Care Team Providers Care Public Health Microbiologist Name Role Phone Anival Ames MD Primary Care Provider [phone] Reason for Visit * Diagnostic Imaging (Routine) - Closed Specialty Diagnoses / Procedures Referred By Contac t Referred To Contact Radiology Diagnoses Placenta previa antepartum Vaginal bleeding in Procedures US Ob 14 + Weeks Single or First Gestation Debi Bashir APRN [facility] [address] [place] [address] Phone: tel: fax: Referral ID Status Reason Start Date Expiration Date Visits Re quested Visits Authorized [id number] Closed 11/28/2022 11/28/2023 1 1 Encounter Details Date Type Department Care Team (Latest Contact Info) Description 12/26/2022 9:30 AM EST Ancillary Procedure [facility] [address] [place] [address] Placenta previa antepartum; Vaginal bleeding in Social History Tobacco Use Types Packs/Day Years Used Date Smoking Tobacco: Never Smokeless Tobacco: Never Alcohol Use Standard Drinks/Week Comments No 0 (1 standard drink = 0.6 oz pur e alcohol) [place] Depression Scale Answer Date Recorded Retired [place] Depression Score 0 06/29/2018 Retired EPD Scale: [...] Priority Date/Time Associated Diagnosis Comments US OB 14 + WEEKS SINGLE OR FIRST GESTATION Routine 12/26/2022 10:00 AM EST Placenta previa antepartum Vaginal bleeding in documented in this encounter Results * US Ob 14 + Weeks Single or First Gestation (12/26/2022 10:00 AM EST) Anatomical Region Laterality Modality Body Ultrasound 12/26/2022 9:35 AM EST Narrative 12/26/2022 10:37 AM EST PAT NAME: ANDERS CLEARY MED REC#: [id number] DA: [id number] PAT GEND: F PAT TYPE: O EXAM GABBY: [id number] REF PHYS DEBI BASHIR Indication ======== anatomy [...] EFW (oz) 10 oz EFW by: Hadlock ([id number]) Extended C Developer 2.8 mm CM 2.6 mm ?2% ?Nicolaides [...] Heart / Thorax 3-vessel view: Appears normal 1-atjdmm-thjlekp view: Appears normal Diaphragm: Appears normal Diaphragm: [...] praevia Recommendation Follow-up scan as clinically indicated. Electronic Security Specialist: RT rBe R, [facility] Physician: Jacek Walters II, MD, FACOG Electronically signed by: Jacek Walters II, MD, FACOG at: 10:37 Procedure Note Jacek Walters MD - 12/26/2022 PAT NAME: ANDERS CLEARY MED REC#: [id number] DA: 2000 PAT GEND: F PAT TYPE: O EXAM GABBY: [id number] REF PHYS DEBI BASHIR Indication ======== anatomy [...] dating:based on stated MAURILIO GA by prior [id number] w + 6 d MAURILIO by prior assessment:05/23/2023 Ultrasound examination on:12/26/2022 GA by U/S based upon:AC, BPD, Femur, HC GA by U/S19 w + 2 d MAURILIO by U/S:05/20/2023 Previous dating:based on stated MAURILIO, selected on 11/28/2022 Agreed MAURILIO of previous datin05/23/2023 Assigned:based on stated MAURILIO, selected on 12/26/2022 Assigned GA18 w + 6 d Assigned MAURILIO:05/23/2023 [id number] d General Evaluation Cardiac activity present. movements [...] 48% Hadlock HC / AC1.24 87% Hadlock PHT858 g EFW (lb)0 lb EFW (oz)10 oz EFW by:Hadlock ([id number]-FL) Extended Vp2.8 mm CM2.6 mm 2% Nicolaides [...] normal Heart / Thorax 3-vessel view:Appears normal 7-psnvay-hhnokrq view:Appears normal Diaphragm:Appears normal Diaphragm:Intact Cord insertion:Appears [...] Structures Uterus / Cervix Uterus:Visualized Cervix:Visualized Cervical onnttd46.9 mm Ovaries / Tubes / Adnexa Rt ovary:Visualized Lt ovary:Visualized Impression ========= No structural abnormalities are seen on today's scan. Anatomicsurvey is now complete.no praevia Recommendation Follow-up scan as clinically indicated. Electronic Security Specialist: RT Amandeep Díaz, [facility] Physician: Jacek Walters II, MD, FACOG Electronically signed by: Jacek Walters II, MD, FACOG at: 0:37 us Debi Bashir [place] [facility] [place] ORDER[place]LES Final Re sult documented in this encounter Visit Diagnoses Diagnosis Placenta previa antepartum Placenta previa without hemorrhage, antepartum Vaginal bleeding in 18 weeks gestation of - Primary Obesity (BMI 30-39.9) Screening for cervical cancer Screening for malignant neoplasm of the cervix documented in this encounter Care Teams Public Health Microbiologist Relationship Specialty Start Date End Date Anival Ames MD PCP - General Emergency Medicine 08/17/20 documented as of this encounter
--- OUTSIDE RECORDS SUMMARY | 2024-09-18 09:15 | XMS_ITS | Encounter Summary ---
Author Organization [facility] Address [address] [place] [address] Care Team Providers Care Cake Maker Name Role Phone Anival Ames MD Primary Care Provider [phone] Reason for Visit * Reason Comments Routine Visit Encounter Details Date Type Department Care Team (Late st Contact Info) Description 04/24/2023 10:00 AM EDT Routine [facility] [address] [place] [address] Jacek Walters MD [address] [facility] [address] [place] [address] GA: 35w6d Social History Tobacco Use Types Packs/Day Years Used Date Smoking Tobacco: Never Smokeless Tobacco: Never Alcohol Use Standard Drinks/Week Comments No 0 (1 standard drink = 0.6 oz pur e alcohol) [place] Depression Scale Answer Date Recorded Retired [place] Depression Score 0 06/29/2018 Retired EPD Scale: [...] Sign Reading Time Taken Comments Blood Pressure 132/80 04/24/2023 10:29 AM EDT Pulse - - Temperature - - Respiratory Rate - - Oxygen Saturation - - Inhaled Oxygen Concentration - - Weight 102 kg (225 lb 6.4 oz) 04/24/2023 10:29 A M EDT Height - - Body Mass Index 34.28 04/17/2022 3:36 PM EDT documented in this encounter Progress Notes * Jacek Walters MD - 04/24/2023 10:00 AM EDT Images from the original note were not included. OB FOLLOW UP CC- Here for care of Geovani Cleary is a 22 y.o. 35w6d patient being seen today for her obstetrical follow upvisit. Patient reports mild swelling in her feet and ankles and occasional marion quesada/contractions. She denies LOF, vaginal spotting, headaches, vision changes. She reports adequate movements, >10 movements in 10 hours. Her care is complicated by (and status) : pressure Patient Active Problem List Diagnosis Encounter for IUD removal Obesity (BMI 30-39.9) Screening for cervical cancer Vaginal bleeding in Placenta previa antepartum GBS Status: Done Today. She is not allergic to PCN. No Known Allergies Her Delivery Plan is: IOL scheduled for 05/24/23 today: no Non Stress Test: No. ROS - Patient Reports : swelling, marion quesada/contractions Patient Denies: Loss of Fluid, Vaginal Spotting, Vision Changes, Headaches, Nausea , Vomiting , andEpigastric pain Movement : normal All other systems reviewed and are negative. The additional following portions of the patient's history were reviewed and updated as appropriate: allergies, current medications, past family history, past medical history, past social history, past surgical history, and problem list. I have reviewed and agree with the HPI, ROS, and historical information as entered above. Jacek Walters MD EXAM: Cx 270/-1, Vtx Vitals BP: 132/80 Weight: 102 kg (225 lb 6.4 oz) Heart Rate: 154 Urine Glucose Read-only: Negative Urine Protein Read-only: (!) Trace Assessment and Plan Problem List Items Addressed This Visit Endocrine and Metabolic Obesity (BMI 30-39.9) - Primary Overview BMI 33 Genitourinary and Reproductive Screening for cervical cancer Overview Pap smear 05/20/2022 was negative; HPV HR screen negative. STD screen negative. Other Visit Diagnoses care in third trimester Relevant Orders POC Glucose, Urine, Qualitative, Dipstick (Completed) POC Protein, Urine, Qualitative, Dipstick (Completed) Group B Streptococcus Culture - Swab, Vaginal/Rectum at 35w6d status reassuring. Reviewed Pre-eclampsia signs/symptoms Discussed IOL options with patient. Pt. desires IOL at 39 weeks. Cx 2 Delivery options reviewed with patient Signs of labor reviewed Kick counts reviewed Activity and Exercise discussed. Return in about 1 week (around 05/01/2023) for Recheck. Jacek Walters MD 04/24/2023 documented in this encounter Plan of Treatment Not on file documented as of this encounter Procedures Procedure Name Priority Date/Time Associated Diagnosis Comments GROUP B STREPTOCOCCUS CULTURE Routine 04/24/2023 11:45 AM EDT care in third trimester POCT GLUCOSE, URINE, QUALITATIVE, DIPSTICK Routine 04/24/2023 10:32 AM EDT care in third trimester POCT PROTEIN, URINE, QUALITATIVE, DIPSTICK Routine 04/24/2023 10:32 AM EDT care in third trimester documented in this encounter Results * (ABNORMAL) Group B Streptococcus Culture - Swab, Vaginal/Rectum (04/24/2023 11:45 AM EDT) Strep Gp B Culture Positive( A) Negative [facility] Comment: Centers for Disease Control and Prevention (CDC) and [place] [employer] of Obstetricians and Gynecologists (ACOG) guidelines [...] warranted if resistance to clindamycin is noted. Swab Rectum and vagina, CS / Unknown 04/24/2023 11:45 AM EDT 04/24/2023 Comment:JULISA Narrative [facility] (AMBULATORY) - 04/28/2023 1:08 PM EDT Performed at: ??01 - [facility] [address] [place] [address], [place], [place] ??[phone] Director Product Development: Ortiz Heath PhD, Phone: ??[phone] Patient Fasting: ??N us Jacek Walters MD MICROBIOLOGY - GENERAL ORDERABL ES Final Result [facility] (AMBULATORY) [address] [place] [address], [place] [phone] [facility] [address] [place] [address], [place] [phone] * POC Glucose, Urine, Qualitative, Dipstick (04/24/2023 10:32 AM EDT) Glucose, UA Negative Negative mg/dL [facility] Urine 04/24/2023 10:3 2 AM EDT us Jacek Walters MD POINT OF CARE TEST ORDERABLES F inal Result Performing Organization Address City/[facility]/ZIP Co de Phone Number [facility]
[address] [place] [address], * (ABNORMAL) POC Protein, Urine, Qualitative, Dipstick (04/24/2023 10:32 AM EDT) Protein, POC Trace(A) Negative mg/dL [facility] Lot Number na [facility] Expiration Date na [facility] Urine 04/24/2023 10:3 2 AM EDT us Jacek Walters MD POINT OF CARE TEST ORDERABLES F inal Result [facility]
[address] [place] [address], documented in this encounter Visit Diagnoses Diagnosis Obesity (BMI 30-39.9)- Primary Screening for cervical cancer Screening for malignant neoplasm of the cervix care in third trimester documented in this encounter Care Teams Cake Maker Relationship Specialty Start Date End Date Anival Ames MD PCP - General Emergency Medicine 08/17/20 documented as of this encounter
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
--- OUTSIDE RECORDS SUMMARY | 2024-09-18 09:16 | XMS_ITS | Encounter Summary ---
Author Organization Healthcare Address [address] [place] [address] Care Team Providers Care Seam Taper Machine Name Role Phone Unavailable Primary Care Provider Unavailabl e Encounter Details Date Type Department Care Team (Late st Contact Info) Description 06/20/2017 [facility] Vitals Encounter [facility] OUTPATIENT CONVERSIONS [address] [place] [address] ProviderKhadar MD [address] [place] [address] Social History Tobacco Use Types Packs/Day Years Used Date Smoking Tobacco: Never Assessed Comments Unknown Sex and Gender Information Value Date Recorded Sex Assigned at Not on file Legal Sex Female 6:33 PM EDT Gender Identity Not on file Sexual Orientation Not on file documented as of this encounter Last Filed Vital Signs Vital Sign Reading Time Taken Comments Blood Pressure - - Pulse - - Temperature - - Respiratory Rate - - Oxygen Saturation - - Inhaled Oxygen Concentration - - Weight 87.5 kg (192 lb 15.9 oz) 06/20/2017 1:03 PM EDT Height 170.2 cm (5' 7 ) 06/20/2017 1:03 PM EDT Body Mass Index 30.23 06/20/2017 1:03 PM EDT Body Mass Index Percentile 95.16% 06/20/2017 1:0 3 PM EDT Growth Chart: CDC (Girls, 2- 20 Years) documented in this encounter Plan of Treatment Not on file documented as of this encounter Visit Diagnoses Not on filedocumented in this encounter
--- OUTSIDE RECORDS SUMMARY | 2024-09-18 09:16 | XMS_ITS | Encounter Summary ---
Author Organization Healthcare Address [address] [place] [address] Care Team Providers Care Biometrics Experimentalist Name Role Phone Unavailable Primary Care Provider Unavailabl e Encounter Details Date Type Department Care Team (Late st Contact Info) Description 09/16/2015 Legacy AEHR Vitals Encounter [facility] OUTPATIENT CONVERSIONS [address] [place] [address] ProviderKhadar MD [address] [place] [address] Social History Tobacco Use Types Packs/Day [...] - Inhaled Oxygen Concentration - - Weight 81.3 kg (179 lb 4.1 oz) 09/16/2015 7:48 A M EST Height 170.2 cm (5' 7 ) 09/16/2015 7:48 AM EST Body Mass Index 28.08 09/16/2015 7:48 AM EST Body Mass Index Percentile 94.24% 09/16/2015 7:4 8 AM EST Growth Chart: CDC (Girls, 2- 20 Years) documented in this encounter Plan of Treatment Not on file documented as of this encounter Visit Diagnoses Not on filedocumented in this encounter
--- OUTSIDE RECORDS SUMMARY | 2024-09-18 09:16 | XMS_ITS | Encounter Summary ---
[facility] [address] [place] [address] Care Team Providers Care Silverware Supervisor Name Role Phone Anival Ames MD Primary Care Provider [phone] Reason for Visit * Diagnostic Imaging (Emergency) - Closed Specialty Diagnoses / Procedures Referred By Contac t Referred To Contact Obstetrics and Gynecology Diagnoses Abnormal uterine bleeding (AUB) Procedures US Non-ob Transvaginal Evy Givens, INTERMEDIATE ACCOUNTANT [address] [facility] [address] [place] [address] Phone: tel: fax: [facility] OBGYN [address] [place] [address] Phone: tel:[phone] fax: Referral ID Status Reason Start Date Expiration Date Visits Re quested Visits Authorized [id number] Closed 01/18/2022 01/18/2023 1 1 Encounter Details Date Type Department Care Team (Late st Contact Info) Description 01/18/2022 4:35 PM EDT Ancillary Procedure [facility] OBGYN [address] [place] [address] Social History Tobacco Use Types Packs/Day Years Used Date Smoking Tobacco: Never Smokeless Tobacco: Never Alcohol Use Standard Drinks/Week Comments No 0 (1 standard drink = 0.6 oz pur e alcohol) [place] Depression Scale Answer Date Recorded Retired [place] Depression Score 0 06/29/2018 Retired EPD Scale: Thought of Harming Self 06/29/2018 Comments No Sex and Gender Information Value [...] Associated Diagnosis Comments US NON-OB TRANSVAGINAL STAT 01/18/2022 4:45 PM EDT Abnormal uterine bleeding (AUB) documented in this encounter Results * US Non-ob Transvaginal (01/18/2022 4:45 PM EDT) Anatomical Region Laterality Modality Body Ultrasound 01/18/2022 4:28 PM EDT Narrative 01/19/2022 9:49 PM EDT PAT NAME: ANDERS CLEARY MED REC#: [id number] DA: 2000 PAT GEND: F PAT TYPE: O EXAM GABBY: [id number] REF PHYS EVY GIVENS Indication ======== IUD check Comparison Studies 08/17/2020 Method ======= [place] E6, Transvaginal ultrasound examination, 3D ultrasound examination. View: Adequate view Uterus ====== Uterus: Visualized Uterus position: Anteverted Description of uterine malformations: none Myometrium: Homogeneous Endometrium: Uniform Cervix details: Fluid within the EMC; 3mm in diameter. Nabothian cyst noted Uterus long 66 mm Uterus ap 36 mm Uterus tr 44 mm Uterus Vol 54.2 cm?? Endometrial thickness, total 6.5 mm IUCD ===== Position control IUCD type: Mirena intrauterine system. Location: IUCD placed correctly at the fundus of the uterus Right Ovary Rt ovary: Visualized Rt ovary D1 38.3 mm Rt ovary D2 21.6 mm Rt ovary D3 23.0 mm Rt ovary Vol 10.0 cm?? Rt ovarian corpus luteum: visualized Left Ovary ========= Lt ovary: Visualized Lt ovary D1 22.3 mm Lt ovary D2 16.4 mm Lt ovary D3 15.40 mm Lt ovary Vol 2.9 cm?? Cul de Sac ========= Normal. No free fluid visualized Impression ========= There is an appropriately placed endometrial IUD Recommendation Follow-up as clinically indicated. Crane Mechanic: Elvira Pacheco RDNJ Physician: Luisa Thrasher MD, FACOG Electronically signed by: Luisa Thrasher MD, FACOG at: 21:49 Procedure Note Luisa Thrasher MD - 01/19/2022 PAT NAME: ANDERS CLEARY MED REC#: [id number] DA: [id number] PAT GEND: F PAT TYPE: O EXAM GABBY: [id number] REF PHYS EVY GIVENS Indication ======== IUD check Comparison Studies 08/17/2020 Method ======= [place] E6, Transvaginal ultrasound examination, 3D ultrasoundexamination. View: Adequate view Uterus ====== Uterus:Visualized Uterus position:Anteverted Description of uterine malformations:none Myometrium:Homogeneous Endometrium:Uniform Cervix details:Fluid within the EMC; 3mm in diameter. Nabothian cystnoted Uterus long66 mm Uterus ap36 mm Uterus tr44 mm Uterus Vol54.2 cm?? Endometrial thickness, total6.5 mm IUCD ===== Position control IUCD type: Mirena intrauterine system. Location: IUCD placed correctly atthe fundus of the uterus Right Ovary Rt ovary:Visualized Rt ovary D138.3 mm Rt ovary D221.6 mm Rt ovary D323.0 mm Rt ovary Vol10.0 cm?? Rt ovarian corpus luteum:visualized Left Ovary ========= Lt ovary:Visualized Lt ovary D122.3 mm Lt ovary D216.4 mm Lt ovary D315.40 mm Lt ovary Vol2.9 cm?? Cul de Sac ========= Normal. No free fluid visualized Impression ========= There is an appropriately placed endometrial IUD Recommendation Follow-up as clinically indicated. Crane Mechanic: Elvira Pacheco RDMS Physician: Luisa Thrasher MD, FACOG Electronically signed by: Luisa Thrasher MD, FACOG at: 21:49 us Evy Christiana José Miguel INTERMEDIATE ACCOUNTANT IMG US ORDERABLES Final Resul t documented in this encounter Visit Diagnoses Not on filedocumented in this encounter Care Teams Silverware Supervisor Relationship Specialty Start Date End Date Anival Ames MD PCP - General Emergency Medicine 08/17/20 documented as of this encounter
--- OUTSIDE RECORDS SUMMARY | 2024-09-18 09:16 | XMS_ITS | Encounter Summary ---
Author Organization Healthcare Address [address] [place] [address] Care Team Providers Care Senior Support Engineer Name Role Phone Unavailable Primary Care Provider Unavailabl e Encounter Details Date Type Department Care Team (Late st Contact Info) Description 11/01/2015 [facility] AEHR Vitals Encounter [facility] OUTPATIENT CONVERSIONS [address] [place] [address] Provider, MD Khadar [address] [place] [address] Social History Tobacco Use Types Packs/Day [...] Concentration - - Weight - - Height 170.2 cm (5' 7 ) 11/01/2015 3:16 PM EST Body Mass Index - - documented in this encounter Plan of Treatment Not on file documented as of this encounter Visit Diagnoses Not on filedocumented in this encounter
--- OUTSIDE RECORDS SUMMARY | 2024-09-18 09:16 | XMS_ITS | Encounter Summary ---
Author Organization Healthcare Address [address] [place] [address] Care Team Providers Care Manager Of Compensation Name Role Phone Unavailable Primary Care Provider Unavailabl e Encounter Details Date Type Department Care Team (Late st Contact Info) Description 08/13/2017 Legacy AEHR Vitals Encounter [facility] OUTPATIENT CONVERSIONS [address] [place] [address] ProviderKhadar MD [address] [place] [address] Social History Tobacco Use Types Packs/Day [...] Weight 87.5 kg (192 lb 15.9 oz) 017 11:02 AM EDT Height 170.2 cm (5' 7 ) 08/13/2017 11:0 2 AM EDT Body Mass Index 30.23 08/13/2017 11:02 AM EDT Body Mass Index Percentile 95.10% 08/13 11:02 AM EDT Growth Chart: CDC (Girls, 2- 20 Years) documented in this encounter Plan of Treatment Not on file documented as of this encounter Visit Diagnoses Not on filedocumented in this encounter
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
--- OUTSIDE RECORDS SUMMARY | 2024-09-18 09:16 | XMS_ITS | Clinical Summary ---
Author Organization Healthcare Address [address] [place] [address] Care Team Providers Care Scrap Metal Collector Name Role Phone Unavailable Primary Care Provider Unavailabl e Family History 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 Relation Name Comments Hypertension Brother Hypertension Father Hypertension Other Relation Name Status Comments Brother Father Other Social History Tobacco Use Types Packs/Day Years Used Date Smoking Tobacco: Never Alcohol Use Standard Drinks/Week Comments No 0 (1 standard drink = 0.6 oz pur e alcohol) Comments Unknown Sex and Gender Information Value Date Recorded Sex Assigned at Not on file Legal Sex Female 6:33 PM EDT Gender Identity Not on file Sexual Orientation Not on file Last Filed Vital Signs [...] Mass Index 30.23 08/13/2017 11:02 AM EDT Plan of Treatment Not on file
--- OUTSIDE RECORDS SUMMARY | 2024-09-18 09:16 | XMS_ITS | Encounter Summary ---
[facility] [address] [place] [address] Care Team Providers Care Health Care Facility Administrator Name Role Phone Provider, No Known Primary Care Provider Unavail able Reason for Visit * Reason Comments Scheduled Induction * Auth/Cert Specialty Diagnoses / Procedures Referred By Contac t Referred To Contact Diagnoses Currently Procedures Referral ID Status Reason Start Date Expiration Date Visits Re quested Visits Authorized [id number] 1 1 Encounter Details Date Type Department Care Team (Late st Contact Info) Description 06/26/2018 11:33 PM EDT - 06/30/2018 12:24 PM EDT Hospital Encounter [facility] [address] [place] [address] Jacek Walters MD [address] [facility] [address] [place] [address] Preeclampsia in period (Primary Dx); 39 weeks gestation of Discharge Disposition: Home or Self Care Social History Tobacco Use Types Packs/Day Years Used Date Smoking Tobacco: Never Smokeless Tobacco: Never Alcohol Use Standard Drinks/Week Comments No 0 (1 standard drink = 0.6 oz pur e alcohol) [place] Depression Scale Answer Date Recorded Retired [place] Depression Score 0 06/29/2018 Retired EPD Scale: Thought of Harming Self 06/29/2018 Comments No Sex and Gender Information Value Date Recorded Sex Assigned at Not on file Legal Sex Female 4:02 PM EST Gender Identity Not on file Sexual Orientation Not on file documented as of this encounter Last Filed Vital Signs Vital Sign Reading Time Taken Comments Blood Pressure 131/65 06/30/2018 4:25 AM EDT Pulse 66 06/29/2018 11:00 PM EDT Temperature 36.6 ??C (97.8 ??F) 06/29/2018 11:00 PM E DT Respiratory Rate 16 06/29/2018 11:00 PM EDT Oxygen Saturation - - Inhaled Oxygen Concentration - - Weight 101 kg (223 lb) 06/26/2018 11:59 PM EDT Height 170.2 cm (5' 7 ) 06/26/2018 11:59 PM EDT Body Mass Index 34.93 06/26/2018 11:59 PM EDT Body Mass Index Percentile 97.20% 06/26/2018 11: 59 PM EDT Growth Chart: [facility] (Girls, 2- 20 Years) documented in this encounter Discharge Summaries * Roland Pinzon MD - 06/30/2018 12:24 PM EDT Discharge Summary Date of Admission: 06/26/2018 Date of Discharge: 06/30/2018 Patient: Geovani Cleary MR#:[id number] Delivery Provider: Efrain Walters Attending Provider: No att. providers found Presenting Problem/History of Present Illness Currently [Z34.90] Patient Active Problem List Diagnosis ??? Decreased movement ??? Spontaneous vaginal delivery ??? Iron deficiency anemia ??? Gestational hypertension without significant proteinuria, Discharge Diagnosis: Vaginal delivery at 39w6d; Post Gestational HTN. Procedures: Vaginal, Spontaneous Delivery 06/27/2018 11:35 PM Discharge Date: 06/30/2018; Hospital Course Patient is a 17 y.o. female at 39w6d status post vaginal delivery without complication. the patient had elevated BP and was sent to APU for Magnesium Sulfate for 24 hours. She did not require antihypertensives. She was transferred back to and did well. She remained afebrile, with vital signs stable. She was ready for discharge on day 3. : male fetus 3615 g (7 lb 15.5 oz) with scores of 8 , 9 at five minutes. Condition on Discharge: Stable Vital Signs Temp: [97.8 ??F (36.6 ??C)] 97.8 ??F (36.6 ??C) Heart Rate: [66] 66 Resp: [16] 16 BP: (131-134)/(65-82) 131/65 Lab Results Component Value Date WBC 12.06/29/2018 HGB 9.5 (L) 06/29/2018 HCT 28.3 (L) 06/29/2018 MCV 94.0 06/29/2018 PLT 126 (L) 06/29/2018 Discharge Disposition Home or Self Care Discharge Medications Discharge Medications New Medications Instructions Start Date ferrous sulfate 325 (65 FE) MG tablet 325 mg, Oral, Daily With Breakfast Continue These Medications Instructions Start Date 27-1 27-1 MG tablet tablet Oral, Daily Discharge Diet: Activity at Discharge: Follow-up Appointments No future appointments. Additional Instructions for the Follow-ups that You Need to Schedule Discharge Follow-up with Specified Provider: Dr Walters; 1 Week As directed To: Dr Walters Follow Up: 1 Week Roland Pinzon MD 06/30/18 6:06 PM Csd documented in this encounter Medications at Time of Discharge ferrous sulfate 325 (65 FE) MG tablet Take 1 tablet by mouth Daily With Breakfast. 30 tablet 1 06/30/2018 05/04/2021 Vit-Fe Fumarate-FA ( 27-1) 27-1 MG tablet tablet Take by mouth Daily. 05/04/2021 documented as of this encounter Progress Notes * Roland Pinzon MD - 06/29/2018 1:17 PM EDT 06/29/2018 HD:2 17 y.o. yo female at 39w6d Subjective Geovani feels well; no headache or vision changes; Mag sulfate stopped at 3 am. BPs stablw without medication. Objective Temp: Temp: [98.3 ??F (36.8 ??C)-99.1 ??F (37.3 ??C)] 98.5 ??F (36.9 ??C) Temp src: Oral BP: BP: (114-145)/(56-77) 114/56 Pulse: Heart Rate: [71-116] 79 RR: Resp: [16-18] 16 General: nad Abdomen: Gravid, nontender Lab Results Component Value Date WBC 12.06 06/29/2018 HGB 9.5 (L) 06/29/2018 HCT 28.3 (L) 06/29/2018 MCV 94.0 06/29/2018 PLT 126 (L) 06/29/2018 HEPBSAG Negative 11/14/2017 Results from last 7 days Lab Units 06/27/18 0014 AST (SGOT) U/L 18 Results from last 7 days Lab Units 06/27/18 0014 ALT (SGPT) U/L 14 Results from last 7 days Lab Units 06/27/18 0014 CREATININE mg/dL 0.58* Results from last 7 days Lab Units 06/27/18 0014 BILIRUBIN mg/dL 0.3 Assessment 1. 17 y.o. yo female at 39w6d 2. Post day 2 ; 3. Post Gestational HTN; s/p 24 hours Mag Sulfate. BPs stable without medication. Patient Active Problem List Diagnosis ??? Iron deficiency anemia [D50.9] ??? Gestational hypertension without significant proteinuria, [O13.5] ??? Spontaneous vaginal delivery [O80] ??? Decreased movement [O36.8190] Plan 1. Cont current hospital care. 2. Transfer to ; Wants circ. This note has been electronically signed. Roland Pinzon MD June 29, 2018 * Jalil Domingo MD - 06/28/2018 2:20 AM EDT Geovani Cleary [id number] BP's consistantly elevated. Preeclampsia labs normal. Asymptomatic. Will start magnesium for BP's in severe range (6g/2g) and labetalol. Jalil Domingo MD 06/28/2018 2:20 AM * Jacek Walters MD - 06/28/2018 12:09 AM EDT [facility] Vaginal Delivery Note Delivery Delivery: Vaginal, Spontaneous Delivery Date of : 06/27/2018 Time of : 11:35 PM Anesthesia: Epidural Delivering clinician: Efrain Walters Forceps? No Vacuum? No Shoulder dystocia present: No Delivery narrative: Patient pushed for an hour and a half and delivered vaginally over midline episiotomy a 8 pound male. Cut and clamped cord blood obtained. A loose nuchal cord released on the perineum. Placenta expressed uterus explored midline episiotomy and second-degree tear repaired with 2-0 chromic. methergine Was given due to some atony. Loss was 350 Findings: male infant observations: Weight: 3615 g (7 lb 15.5 oz) Length: 21 in Observations/Comments: Apgars: @ 1 minute / @ 5 minutes Infant Name: Placenta, Cord, and Fluid Placenta delivered Spontaneous at 06/27/2018 11:40 PM Cord: 3 vessels present. Nuchal Cord? yes; Number of nuchal loops present: 1 Cord blood obtained: Yes Cord gases obtained: No Cord gas results: Venous: No results found for: PHCVEN Arterial: No results found for: PHCART Repair Episiotomy: Median Lacerations: Yes Laceration Information Laceration Repaired? Perineal: 2nd Yes Periurethral: left Yes Labial: Sulcus: Vaginal: No Cervical: No Suture used for repair: 2-0 chromic gut Estimated Blood Loss: Est. Blood Loss (mL): 350 mL (Filed from Delivery Summary) (06/27/18 9041) Complications Disposition Mother to in stable condition currently. Baby to NBN in stable condition currently. Jacek Walters MD 06/28/18 12:09 AM * Jacek Walters MD - 06/27/2018 6:31 PM EDT cx remains 8 /100/-1 after 2 hours and we will wait 2 more hrs and her labor pattern appears intact * Jacek Walters MD - 06/27/2018 8:42 AM EDT Cx 4/80/-1 clear AROM IUPC placed documented in this encounter H&P Notes * Jacek Walters MD - 06/27/2018 8:40 AM EDT [facility] Obstetric History and Physical Chief Complaint Patient presents with ??? Scheduled Induction Subjective Patient is a 17 y.o. female currently at 39w6d, who presents with preg for induction. Her care is benign. Her previous obstetric/gynecological history is noted for is non-contributory. The following portions of the patients history were reviewed and updated as appropriate: current medications . Information: Results Initial Labs Test Value Reference Range Date Time Hemoglobin Hematocrit Platelets 174 10*3/mm3 150 - 450 10*3/mm3 06/27/18 0014 Rubella IgG Immune 11/14/17 Hepatitis B SAg Negative 11/14/17 Hepatitis C Ab Negative 11/14/17 RPR Non-Reactive 11/14/17 ABO A 06/27/18 0014 Rh Positive 06/27/18 0014 Antibody Screen HIV Non-Reactive 11/14/17 Urine Culture Gonorrhea Negative 11/14/17 Chlamydia Negative 11/14/17 TSH 2nd and 3rd Trimester Test Value Reference Range Date Time Hemoglobin (repeated) 11.5 g/dL 11.5 - 15.5 g/dL 06/27/18 0014 Hematocrit (repeated) 33.0 % (L) 34.5 - 44.0 % 06/27/18 0014 GCT Antibody Screen (repeated) Negative 06/27/18 0014 GTT Fasting GTT 1 Hr 115 04/02/18 GTT 2 Hr GTT 3 Hr Group B Strep No Group B Streptococcus Isolated from Broth Culture 05/28/18 1534 Drug Screening Test Value Reference Range Date Time Amphetamine Screen Positive 11/14/17 Barbiturate Screen Benzodiazepine Screen Methadone Screen Phencyclidine Screen Opiates Screen THC Screen Cocaine Screen Propoxyphene Screen Buprenorphine Screen Methamphetamine Screen Oxycodone Screen Tryicyclic Antidepressants Screen Other (Risk screening) Test Value Reference Range Date Time Varicella IgG Parvovirus IgG CMV IgG Cystic Fibrosis Hemoglobin electrophoresis NIPT MSAFP-4 AFP (for NTD only) External Results Outside Results - Transcribed From Office Records - See Scanned Records For Details Test Value Date Time Hgb 11.5 g/dL 06/27/18 0014 Hct 33.0 % (L) 06/27/18 0014 ABO A 06/27/18 0014 Rh Positive 06/27/18 0014 Antibody Screen Negative 06/27/18 0014 Glucose Fasting GTT Glucose Tolerance Test 1 hour 115 04/02/18 Glucose Tolerance Test 3 hour Gonorrhea (discrete) Negative 11/14/17 Chlamydia (discrete) Negative 11/14/17 RPR Non-Reactive 11/14/17 VDRL Syphilis Antibody Rubella Immune 11/14/17 HBsAg Negative 11/14/17 Herpes Simplex Virus PCR Herpes Simplex VIrus Culture HIV Non-Reactive 11/14/17 Hep C RNA Quant PCR Hep C Antibody Negative 11/14/17 AFP Group B Strep No Group B Streptococcus Isolated from Broth Culture 05/28/18 1534 GBS Susceptibility to Clindamycin GBS Susceptibility to Erythromycin Fibronectin Genetic Testing, Maternal Blood Drug Screening Test Value Date Time Urine Drug Screen Acetaminophen Pos 11/14/17 Amphetamine Screen Positive 11/14/17 Barbiturate Screen Benzodiazepine Screen Methadone Screen Phencyclidine Screen Opiates Screen THC Screen Cocaine Screen Propoxyphene Screen Buprenorphine Screen Methamphetamine Screen Oxycodone Screen Tricyclic Antidepressants Screen Past OB History: Obstetric History [...] that she does not use drugs. General ROS: Pertinent items are noted in HPI Objective Vital Signs Range for the last 24 hours Temperature: Temp: [98.2 ??F (36.8 ??C)] 98.2 ??F (36.8 ??C) Temp Source: Temp src: Oral BP: BP: (128-153)/(58-83) 132/65 Pulse: Heart Rate: [81-88] 87 Respirations: Resp: [18] 18 SPO2: O2 Amount (l/min): O2 Devices Weight: Weight: [101 kg (223 lb)] 101 kg (223 lb) Physical Examination: General appearance - alert, well appearing, and in no distress Presentation: vtx Cervix: Exam by: Dilation: 4 Effacement:80 Station: -1 Heart Rate Assessment Method: Beats/min: Baseline: Varibility: Accels: Decels: Tracing Category: Uterine Assessment Method: Frequency (min): Ctx Count in 10 min: Duration: Intensity: Intensity by IUPC: Resting Tone: Resting Tone by IUPC: Donner Units: Laboratory Results: Radiology Review: Other Studies: Assessment/Plan Active Problems: * No active hospital problems. * Assessment: 1. Intrauterine at 39w6d weeks gestation with reactive status. 2. Desires inductioin 3. Obstetrical history significant for is non-contributory. 4. GBS status: No results found for: GBSANTIGEN Plan: 1. Induce FB AROM 2. Plan of care has been reviewed with patient and fam 3. Risks, benefits of treatment plan have been discussed. 4. All questions have been answered. 5. Jacek Walters MD 06/27/2018 8:40 AM documented in this encounter Procedure Notes * Jalil Domingo MD - 06/27/2018 12:51 AM EDTAssociated Order(s): LUQUE BULB CERVICAL RIPENING Procedure(s): INSERTION OF CERVICAL DILATOR Pre-Procedure Diagnose(s): with 39 completed weeks gestation; Unfavorable cervix in term Transcervical luque placed per physician request. FHT's class 1. Patient tolerated well. 24 pitcairn islander,60ml. Jalil Domingo MD 06/27/2018 12:52 AM documented in this encounter Nursing Notes * Lela Linder RN - 06/29/2018 4:59 PM EDT Problem: (Vaginal Delivery) (Adult,Obstetrics,Pediatric) Goal: Signs and Symptoms of Listed Potential Problems Will be Absent, Minimized or Managed () Outcome: Ongoing (interventions implemented as appropriate) * Sierra Gusman RN - 06/29/2018 8:35 AM EDT Patient indicates she wants to only formula feed and pump her breasts to establish a milk supply. She does not want to put the infant to the breast at this time. She was encouraged to pump breasts every 3 hours to establish a good milk supply. She is using a hospital pump, but does have a home breast pump. * Maria Del Rosario Ravi RN - 06/28/2018 12:02 PM EDT Problem: (Vaginal Delivery) (Adult,Obstetrics,Pediatric) Goal: Signs and Symptoms of Listed Potential Problems Will be Absent, Minimized or Managed () Outcome: Ongoing (interventions implemented as appropriate) 06/28/18 1201 Goal/Outcome Evaluation Problems Assessed ( Vaginal Delivery) all Problems Present ( Vag Deliv) none * Guera Gibbons RN - 06/28/2018 1:42 AM EDT Problem: Labor (Cervical Ripen, Induct, Augment) (Adult,Obstetrics,Pediatric) Goal: Signs and Symptoms of Listed Potential Problems Will be Absent, Minimized or Managed (Labor) Outcome: Outcome(s) achieved Date Met: 06/28/18 06/28/18 0142 Goal/Outcome Evaluation Problems Assessed (Labor) all Problems Present (Labor) none * Cherelle Bynum RN - 06/27/2018 7:26 AM EDT Problem: Patient Care Overview Goal: Plan of Care Review Outcome: Ongoing (interventions implemented as appropriate) 06/27/18 0726 Coping/Psychosocial Plan of Care Reviewed With patient Plan of Care Review Progress no change documented in this encounter Plan of Treatment Not on file documented as of this encounter Procedures Procedure Name Priority Date/Time Associated Diagnosis Comments CBC WITH AUTO DIFFERENTIAL Timed 06/29/2018 7:59 AM EDT CBC AND DIFFERENTIAL Timed 06/29/2018 7:59 AM EDT URINE DRUG SCREEN Routine 06/27/2018 10: 04 AM EDT LUQUE BULB CERVICAL RIPENING Routine 06/27/2018 12:51 AM EDT PRE-ECLAMPSIA PANEL STAT 06/27/2018 1 2:14 AM EDT CBC (NO DIFF) STAT 06/27/2018 12:14 AM EDT TYPE AND SCREEN STAT 06/27/2018 12:14 AM EDT GTT 1 HOUR Routine 04/02/2018 HEPATITIS C ANTIBODY Routine 11/14/2017 URINE DRUG SCREEN Routine 11/14/2017 GONORRHEA SCREEN Routine 11/14/2017 CHLAMYDIA TRACHOMATIS, NEISSERIA GONORRHOEAE, PCR W/ CONFIRMATION Routine 11/14/2017 RUBELLA ANTIBODY, IGG Routine 11/14/2017 RPR Routine 11/14/2017 HEPATITIS B SURFACE ANTIGEN Routine 11/14/2017 HIV-1 ANTIBODY, EIA Routine 11/14/2017 documented in this encounter Results * (ABNORMAL) CBC Auto Differential (06/29/2018 7:59 AM EDT) WBC 12.06 4.50 - 13.50 10*3/mm3 06/29/2018 8:20 AM EDT [facility] RBC 3.01(L) 3.89 - 5.14 10*6/mm3 06/29/2018 8:20 AM EDT [facility] Hemoglobin 9.5(L) 11.5 - 15.5 g/dL 06/29/2018 8:20 AM EDT [facility] Hematocrit 28.3(L) 34.5 - 44.0 % 06/29/2018 8:20 AM EDT [facility] MCV 94.0 80.0 - 99.0 fL 06/29/2018 8:20 AM EDT [facility] MCH 31.6(H) 27.0 - 31.0 pg 06/29/2018 [facility] MCHC 33.6 32.0 - 36.0 g/dL 06/29/2018 8:20 AM EDT [facility] RDW 12.9 11.3 - 14.5 % 06/29/2018 8:20 AM [facility] RDW-SD 44.5 37.0 - 54.0 fl 06/29/2018 [facility] MPV 10.6 6.0 - 12.0 fL 06/29/2018 8:20 AM [facility] Platelets 126(L) 150 - 450 10*3/mm3 06/29/2018 8:20 AM EDT [facility] Neutrophil % 79.2(H) 41.0 - 71.0 % 06/29/2018 8:20 AM EDT [facility] Lymphocyte % 11.4(L) 24.0 - 44.0 % 06/29/2018 8:20 AM EDT [facility] Monocyte % 7.4 0.0 - 12.0 % 06/29/2018 8:[facility] Eosinophil % 1.6 0.0 - 3.0 % 06/29/2018 8:20 AM EDT [facility] Basophil % 0.1 0.0 - 1.0 % 06/29/2018 8:20 AM EDT [facility] Immature Grans % 0.3 0.0 - 0.6 % 06/29/2018 8:20 AM EDT [facility] Neutrophils, Absolute 9.56(H) 1.50 - 8.30 10*3/mm3 06/29/2018 8:20 AM EDT [facility] Lymphocytes, Absolute 1.37 0.60 - 4.80 10*3/mm3 06/29/2018 8:20 AM EDT [facility] Monocytes, Absolute 0.89 0.00 - 1.00 10*3/mm3 06/29/2018 8:20 AM EDT [facility] Eosinophils, Absolute 0.19 0.00 - 0.30 10*3/mm3 06/29/2018 8:20 AM EDT [facility] Basophils, Absolute 0.01 0.00 - 0.20 10*3/mm3 06/29/2018 8:20 AM EDT [facility] Immature Grans, Absolute 0.04(H) 0.00 - 0.03 10*3/mm3 06/29/2018 8:20 AM EDT [facility] Blood 06/29/2018 7:59 AM EDT 06/29/2018 8:12 AM EDT Jacek Walters MD LAB BLOOD ORDERABLES Final Resu lt [facility]
[address] [place] [address], * Urine Drug Screen - Urine, Clean Catch (06/27/2018 10:04 AM EDT) THC, Screen, Urine Negative Negative 2017 11:03 AM EDT [facility] Phencyclidine (PCP), Urine Negative Negative 06/27/2018 11:03 AM EDT [facility] Cocaine Screen, Urine Negative Negative 06/27/2018 11:03 AM EDT [facility] Methamphetamine, Ur Negative Negative 06/27 11:03 AM [facility] Opiate Screen Negative Negative 06/27/2018 11:03 AM [facility] Amphetamine Screen, Urine Negative Negative 06/27/2018 11:03 AM [facility] Benzodiazepine Screen, Urine Negative Negative 06/27/2018 11:03 AM [facility] Tricyclic Antidepressants Screen Negative Negative 06/27/2018 11:03 AM [facility] Methadone Screen, Urine Negative Negative 06/27/2018 11:03 AM [facility] Barbiturates Screen, Urine Negative Negative 06/27/2018 11:03 AM [facility] Oxycodone Screen, Urine Negative Negative 06/27/2018 11:03 AM [facility] Propoxyphene Screen Negative Negative 06/27 11:03 AM [facility] Buprenorphine, Screen, Urine Negative Negative 06/27/2018 11:03 AM [facility] Urine Urine specimen collection, clean catch / Unknown Collection / Unknown 06/27/2018 10:04 AM EDT 06/27/2018 10:49 AM [facility] - 06/27/2018 11:03 AM EDT Cutoff For Drugs Screened: Amphetamines ? 500 ng/ml Barbiturates ? 200 ng/ml Benzodiazepines ?150 ng/ml Cocaine ?150 ng/ml Methadone ?200 ng/ml Opiates ?100 ng/ml Phencyclidine ? 25 ng/ml THC ? 50 ng/ml Methamphetamine ?500 ng/ml Tricyclic Antidepressants ??300 ng/ml Oxycodone ?100 ng/ml Propoxyphene ? 300 ng/ml Buprenorphine ? 10 ng/ml The normal value for all drugs tested is negative. This report includes unconfirmed screening results, with the cutoff values listed, to be used for medical treatment purposes only. ??Unconfirmed results must not be used for non-medical purposes such as employment or legal testing. ??Clinical consideration should be applied to any drug of abuse test, particularly when unconfirmed results are used. ?? Jacek Walters MD URINE ORDERABLES Final Result [facility]
[address] [place] [address], * Luque Bulb Cervical Ripening (06/27/2018 12:51 AM EDT) Narrative Jalil Domingo MD - 06/27/2018 12:51 AM EDT Jalil Domingo MD ? 06/27/2018 12:52 AM Transcervical luque placed per physician request. ??FHT's class 1. Patient tolerated well. 24 pitcairn islander, 60ml. Jalil Domingo MD 06/27/2018 12:52 AM Jacek Walters MD OB GYNE ORDERABLES Final Result * Type & Screen (06/27/2018 12:14 AM EDT) ABO Type A 06/27/2018 1:42 AM EDT [facility] RH type Positive 06/27/2018 1:42 AM EDT [facility] Antibody Screen Negative 06/27/2018 1:42 AM EDT [facility] T&S Expiration Date 06/30/2018 11:59:59 PM 06/27/2018 1:42 AM EDT [facility] Blood Line / Unknown 06/27/2018 12 :14 AM EDT 06/27/2018 12:24 AM EDT Jalil Domingo MD BLOOD BANK TEST ORDERABLES Edit ed Result - Final [facility]
[address] [place] [address], [place] [phone] * (ABNORMAL) CBC (No Diff) (06/27/2018 12:14 AM EDT) WBC 11.79 4.50 - 13.50 10*3/mm3 06/27/2018 12:28 AM EDT [facility] RBC 3.66(L) 3.89 - 5.14 10*6/mm3 06/27/2018 12:28 AM EDT [facility] Hemoglobin 11.5 11.5 - 15.5 g/dL 06/27/2018 12:28 AM EDT [facility] Hematocrit 33.0(L) 34.5 - 44.0 % 06/27/2018 12:28 AM EDT [facility] MCV 90.2 80.0 - 99.0 fL 06/27/2018 12:28 AM EDT [facility] MCH 31.4(H) 27.0 - 31.0 pg 06/27/2018 12:28 AM EDT [facility] MCHC 34.8 32.0 - 36.0 g/dL 06/27/2018 12:28 AM EDT [facility] RDW 12.6 11.3 - 14.5 % 06/27/2018 12:28 AM EDT [facility] RDW-SD 41.5 37.0 - 54.0 fl 06/27/2018 12:28 AM EDT [facility] MPV 11.2 6.0 - 12.0 fL 06/27/2018 12:28 AM EDT [facility] Platelets 174 150 - 450 10*3/mm3 06/27/2018 12:28 AM EDT [facility] Blood Line / Unknown 06/27/2018 12 :14 AM EDT 06/27/2018 12:22 AM EDT us Jalil Domingo MD LAB BLOOD ORDERABLES Final Resu lt Performing Organization Address City/[facility]/ZIP Co de Phone Number [facility]
[address] [place] [address], * (ABNORMAL) Preeclampsia Panel (06/27/2018 12:14 AM EDT) Alkaline Phosphatase 136(H) 25 - 100 U/L 06/27/2018 12:45 AM EDT [facility] ALT (SGPT) 14 7 - 40 U/L 06/27/2018 12:45 AM EDT [facility] AST (SGOT) 18 0 - 33 U/L 06/27/2018 12:45 AM EDT [facility] Creatinine 0.58(L) 0.60 - 1.30 mg/dL 06/27/2018 12:45 AM EDT [facility] Total Bilirubin 0.3 0.3 - 1.2 mg/dL 06/27/2018 12:45 AM EDT [facility] LDH 155 120 - 246 U/L 06/27/2018 12:45 AM EDT [facility] Uric Acid 6.1 3.1 - 7.8 mg/dL 06/27/2018 12:45 AM EDT [facility] Blood Line / Unknown 06/27/2018 12 :14 AM EDT 06/27/2018 12:22 AM EDT us Jalil Domingo MD LAB BLOOD ORDERABLES Final Resu lt [facility]
[address] [place] [address], * GTT 1 Hour (04/02/2018) External GTT 1 Hour 115 Blood Result [facility] Provider LAB BLOOD ORDERABLES Justina l Result * HIV-1 Antibody, EIA (11/14/2017) External HIV Antibody Non-Reacti ve Blood Result [facility] LAB BLOOD ORDERABLES Justina l Result * Rubella Antibody, IgG (11/14/2017) External Rubella Qual Immune Blood Result [facility] LAB BLOOD ORDERABLES Justina l Result * RPR (11/14/2017) External RPR Non-Reacti ve Blood Result [facility] LAB BLOOD ORDERABLES Justina l Result * Hepatitis B Surface Antigen (11/14/2017) External Hepatitis B Surface Ag Negative Blood Result [facility] LAB BLOOD ORDERABLES Justina l Result * Hepatitis C Antibody (11/14/2017) External Hepatitis C Ab Negative Blood Result [facility] LAB BLOOD ORDERABLES Justina l Result * Urine Drug Screen - Urine, Clean Catch (11/14/2017) External Urine Drug Screen Acetaminophen Pos External Amphetamine Screen Urine Positive Urine Urine specimen collection, clean catch / Unknown Result [facility] Provider URINE ORDERABLES Final Re sult * Gonorrhea Screen - Swab, (11/14/2017) External Gonorrhea Screen Negative Swab us Historical Provider MICROBIOLOGY - GENERAL OR DERABLES Final Result * Chlamydia trachomatis, Neisseria gonorrhoeae, PCR w/ confirmation - Swab, Vagina (11/14/2017) External Chlamydia Screen Negative Swab Specimen from vagina / Unknown [facility] Provider MICROBIOLOGY - GENERAL OR DERABLES Final Result documented in this encounter Visit Diagnoses Diagnosis Spontaneous vaginal delivery- Primary Normal delivery 39 weeks gestation of Preeclampsia in period Iron deficiency anemia Unspecified iron deficiency anemia Gestational hypertension without significant proteinuria, documented in this encounter Admitting Diagnoses Diagnosis Currently documented in this encounter Administered Medications Inactive Administered Medications - up to 3 most recent administrations Medication Order MAR Action Action Date Dose Rate Site acetaminophen (TYLENOL) tablet 650 mg 650 mg, Oral, Every 4 Hours PRN, Mild Pain, Headache, Starting on Sun06/28/18 at 0031, Do not exceed 4 grams of acetaminophen in a 24 hr period. If given for pain, use the following pain scale: Mild Pain = Pain Score of 1-3, CPOT 1-2 Moderate Pain = Pain Score of 4-6, CPOT 3-4 Severe Pain = Pain Score of 7-10, CPOT 5-8Indications:39 weeks gestation of Given 06/29/2018 1:12 AM EDT 650 mg carboprost (HEMABATE) injection 250 mcg 250 mcg, Intramuscular, As Needed, hemorrhage, Starting on Sun06/28/18 at 0031, Refrigerate. Use filter needle to withdraw dose.Indications:39 weeks gestation of dextrose 5 % and sodium chloride 0.2 % infusion 96 mL/hr, Intravenous, Continuous, Starting on Sun06/28/18 at 0500 New Bag 06/28/2018 4:20 AM EDT 96 mL/hr 96 mL/hr diphenhydrAMINE (BENADRYL) injection 12.5 mg 12.5 mg, Intravenous, Every 8 Hours PRN, Itching, Starting on Alejandrina 06/27/18 at 0844, {BKC} This med may be ordered in other forms and routes. Before giving verify the last time the drug was given by any route/form. 25 mg may be given IV push over less than 1 minute. docusate sodium (COLACE) capsule 100 mg 100 mg, Oral, 2 Times Daily, First dose on 06/29/18 at 2100, Swallow whole. Do not open, crush, or chew capsule. Given 06/30/2018 10:13 AM EDT 100 mg Given 06/29/2018 9:40 PM EDT 100 mg ePHEDrine syringe 5 mg 5 mg, Intravenous, Every 10 Minutes PRN, low blood pressure, Starting on Alejandrina 06/27/18 at 0844, Give IV push if: Maternal systolic blood pressure drops below 90 mmHg or 10% drop from baseline heart rate deceleration (20 beats per minute below baseline lasting more than 30 seconds) occurs with in 20 minutes of epidural dosing Discuss dosing with Anesthesia in patients with pre-eclampsia, hypertension, cardiac history or tocolytic. Caution: Look alike/sound alike drug alert famotidine (PEPCID) injection 20 mg 20 mg, Intravenous, Once As Needed, nausea, Starting on Alejandrina 06/27/18 at 0844, For 1 dose ferrous sulfate tablet 325 mg 325 mg, Oral, Daily With Breakfast, First dose on 06/29/18 at 1100, Swallow whole. Do not crush, split, or chew. Take with food if GI upset occurs. Given 06/30/2018 10:12 AM EDT 325 mg Given 06/29/2018 3:29 PM EDT 325 mg lactated ringers bolus 1,000 mL 1,000 mL, Intravenous, at 2,000 mL/hr, Administer over 0.5 Hours, As Needed, preload for epidural, Starting on Alejandrina 06/27/18 at 0844, For 1 dose lactated ringers infusion 125 mL/hr, Intravenous, Continuous, Starting on Alejandrina 06/27/18 at 0030Indications:39 weeks gestation of New Bag 06/27/2018 7:02 PM EDT 125 mL/hr 12 5 mL/hr New Bag 06/27/2018 1:02 PM EDT 125 mL/hr 125 mL/hr New Bag 06/27/2018 8:39 AM EDT 3,000 mL/hr 3000 mL/hr lidocaine PF 1% (XYLOCAINE) injection 5 mL 5 mL, Intradermal, As Needed, IV starts, Starting on Sun06/26/18 at 2338Indications:39 weeks gestation of magnesium sulfate bolus from bag 0.07 g/mL solution 6 g 6 g, Intravenous, Once, On Sun06/28/18 at 0315, For 1 dose Bolus from Bag 06/28/2018 3:04 AM EDT 6 g Magnesium Sulfate-Lact Ringers 40 GM/580ML 2 g/hr (29 mL/hr), Intravenous, Continuous, Starting on Sun06/28/18 at 0315, For 7 days New Bag 06/28/2018 7:52 PM EDT 2 g/hr 29 mL/hr New Bag 06/28/2018 3:32 AM EDT 2 g/hr 29 mL/hr methylergonovine (METHERGINE) injection 200 mcg 200 mcg, Intramuscular, Once As Needed, hemorrhage, Starting on Alejandrina 06/27/18 at 2341, For 1 dose, Once as needed for heavy bleeding unless hypertensive / preeclamptic. Call MD for further orders.Indications:39 weeks gestation of Given 06/27/2018 11:45 PM EDT 200 mcg Right Anterior Thigh metoclopramide (REGLAN) injection 10 mg 10 mg, Intravenous, Once As Needed, Nausea, Starting on Alejandrina 06/27/18 at 0844, For 1 dose misoprostol (CYTOTEC) tablet 800 mcg 800 mcg, Rectal, As Needed, Hemorrhage, Starting on Sun06/28/18 at 0031Indications:39 weeks gestation of Morphine sulfate (PF) injection 2 mg 2 mg, Intravenous, Every 2 Hours PRN, Moderate Pain, Starting on Sun06/28/18 at 0031, For 10 days, {DERRICK} Caution: Look alike/sound alike drug alert If given for pain, use the following pain scale: Mild Pain = Pain Score of 1-3, CPOT 1-2 Moderate Pain = Pain Score of 4-6, CPOT 3-4 Severe Pain = Pain Score of 7-10, CPOT 5-8Indications:39 weeks gestation of Morphine sulfate (PF) injection 2 mg 2 mg, Intravenous, Every 2 Hours PRN, Severe Pain, Starting on Sun06/28/18 at 0031, For 10 days, {DERRICK} Caution: Look alike/sound alike drug alert If given for pain, use the following pain scale: Mild Pain = Pain Score of 1-3, CPOT 1-2 Moderate Pain = Pain Score of 4-6, CPOT 3-4 Severe Pain = Pain Score of 7-10, CPOT 5-8Indications:39 weeks gestation of ondansetron (ZOFRAN) injection 4 mg 4 mg, Intravenous, Every 6 Hours PRN, Nausea, Vomiting, Starting on Alejandrina 06/27/18 at 0751 Given 06/28/2018 3:07 AM EDT 4 mg Given 06/27/2018 7:55 AM EDT 4 mg ondansetron (ZOFRAN) injection 4 mg 4 mg, Intravenous, Once As Needed, Nausea, Vomiting, Starting on Alejandrina 06/27/18 at 0844, For 1 dose Given 06/27/2018 7:36 PM EDT 4 mg oxyCODONE-acetaminophen (PERCOCET) 5-325 MG per tablet 1 tablet 1 tablet, Oral, Every 4 Hours PRN, Moderate Pain, Starting on Sun06/28/18 at 0031, For 10 days, {DERRICK} Do not exceed 4 grams of acetaminophen in a 24 hr period. If given for pain, use the following pain scale: Mild Pain = Pain Score of 1-3, CPOT 1-2 Moderate Pain = Pain Score of 4-6, CPOT 3-4 Severe Pain = Pain Score of 7-10, CPOT 5-8Indications:39 weeks gestation of oxyCODONE-acetaminophen (PERCOCET) 7.5-325 MG per tablet 2 tablet 2 tablet, Oral, Every 4 Hours PRN, Severe Pain, Starting on Sun06/28/18 at 0031, For 10 days, Do not exceed more than 4 g acetaminophen in 24 hour period {DERRICK} Do not exceed 4 grams of acetaminophen in a 24 hr period. If given for pain, use the following pain scale: Mild Pain = Pain Score of 1-3, CPOT 1-2 Moderate Pain = Pain Score of 4-6, CPOT 3-4 Severe Pain = Pain Score of 7-10, CPOT 5-8Indications:39 weeks gestation of Given 06/28/2018 12:42 AM EDT 1 tablet oxytocin in sodium chloride (PITOCIN) 30 UNIT/500ML infusion solution 2-24 naomy-units/min (2-24 mL/hr), Intravenous, Titrated, Starting on Alejandrina 06/27/18 at 0500, Start at 2 naomy units/min and increase by 2 naomy units/min every 30 min until contractions adequate to create cervical change. Notify physician for hyperstimulation.Indicati ons:39 weeks gestation of Rate/Dose Change 06/27/2018 8:16 PM EDT 14 naomy-units/min 14 mL/hr Rate/Dose Change 06/27/2018 8:06 PM EDT 12 naomy-units/min 12 mL/hr Rate/Dose Change 06/27/2018 7:02 PM EDT 22 naomy-units/min 22 mL/hr oxytocin in sodium chloride (PITOCIN) 30 UNIT/500ML infusion solution 650 mL/hr, Intravenous, Once, On Sun06/28/18 at 0130, For 1 dose, Give a 333 ml bolus over 30 minutes (650 ml/hr) followed by 85 ml/hr x 4 hours.Indications:39 weeks gestation of New Bag 06/27/2018 11:40 PM EDT 650 mL/hr 650 mL/hr oxytocin in sodium chloride (PITOCIN) 30 UNIT/500ML infusion solution 85 mL/hr, Intravenous, Once, On Sun06/28/18 at 0130, For 1 dose, Give 85 ml/hr over 4 hours.Indications:39 weeks gestation of New Bag 06/28/2018 12:20 AM EDT 85 mL/hr 85 mL/hr promethazine (PHENERGAN) injection 12.5 mg 12.5 mg, Intravenous, Every 6 Hours PRN, Nausea, Vomiting, Starting on Sun06/28/18 at 0031, For IV administration must dilute in normal saline to 20 mL and give slow IV push If giving IV, dilute dose in 20 mL NS and slow IV push over 3-5 minutes. Administer through large bore vein (not hand or wrist) through running IV line at port furthest from patient's vein.Indications:39 weeks gestation of promethazine (PHENERGAN) injection 12.5 mg 12.5 mg, Intramuscular, Every 6 Hours PRN, Nausea, Vomiting, Starting on Sun06/28/18 at 0031, IM injection. If giving IV, dilute dose in 20 mL NS and slow IV push over 3-5 minutes. Administer through large bore vein (not hand or wrist) through running IV line at port furthest from patient's vein.Indications:39 weeks gestation of promethazine (PHENERGAN) suppository 12.5 mg 12.5 mg, Rectal, Every 6 Hours PRN, Nausea, Vomiting, Starting on Sun06/28/18 at 0031, If BOTH ondansetron (ZOFRAN) and promethazine (PHENERGAN) are ordered use ondansetron first and THEN promethazine IF ondansetron is ineffective.Indications:39 weeks gestation of promethazine (PHENERGAN) tablet 12.5 mg 12.5 mg, Oral, Every 6 Hours PRN, Nausea, Vomiting, Starting on 06/28/18 at 0031, If BOTH ondansetron (ZOFRAN) and promethazine (PHENERGAN) are ordered use ondansetron first and THEN promethazine IF ondansetron is ineffective. {BKC}Indications:39 weeks gestation of ropivacaine (NAROPIN) 0.2 % injection 15 mL/hr, Epidural, Continuous, Starting on Alejandrina 06/27/18 at 0930, Anesthesiologist to adjust rate as needed. RN may replace epidural infusion fluids as ordered. New Bag 06/27/2018 9:20 PM EDT New Bag 06/27/2018 9:02 AM EDT 15 mL/hr 15 mL/hr sodium chloride 0.9 % flush 1-10 mL 1-10 mL, Intravenous, As Needed, Line Care, Starting on Sun06/26/18 at 2338Indications:39 weeks gestation of zolpidem (AMBIEN) tablet 5 mg 5 mg, Oral, Nightly PRN, Sleep, Starting on Alejandrina 06/27/18 at 0307, For 10 days, {DERRICK} Given 06/27/2018 3:15 AM EDT 5 mg documented in this encounter Active and Recently Administered Medications Times are shown in EDT. Scheduled Medication Order 06/28/2018 06/29/2018 06/30/2018 docusate sodium (COLACE) capsule 100 mg 100 mg, Oral, 2 Times Daily, First dose on 06/29/18 at 2100, Swallow whole. Do not open, crush, or chew capsule. 214 (Given - Provider: Diamante Ny RN) 1013 (Given - Provider: Lela Linder RN) ferrous sulfate tablet 325 mg 325 mg, Oral, Daily With Breakfast, First dose on 06/29/18 at 1100, Swallow whole. Do not crush, split, or chew. Take with food if GI upset occurs. 1529 (Given - Provider: Jodi Will RN) 1012 (Given - Provider: Lela Linder RN) magnesium sulfate bolus from bag 0.07 g/mL solution 6 g (COMPLETED) 6 g, Intravenous, Once, On Sun06/28/18 at 0315, For 1 dose 0304 (Bolus from Bag - Provider: Guera Gibbons RN) mineral oil liquid 30 mL 30 mL, Topical, Once, On Alejandrina 06/27/18 at 0030, For 1 dose oxytocin in sodium chloride (PITOCIN) 30 UNIT/500ML infusion solution (COMPLETED)(Linked Group 1) 85 mL/hr, Intravenous, Once, On Sun06/28/18 at 0130, For 1 dose, Give 85 ml/hr over 4 hours. 0020 (New Bag - Provider: Guera Gibbons RN) Sod Citrate-Citric Acid (BICITRA) solution 30 mL 30 mL, Oral, Once, On Alejandrina 06/27/18 at 0930, For 1 dose, For all section patients no more than 20 minutes prior to transport to the OR. Continuous Medication Order 06/28/2018 06/29/2018 06/30/2018 dextrose 5 % and sodium chloride 0.2 % infusion 96 mL/hr, Intravenous, Continuous, Starting on Sun06/28/18 at 0500 0420 (New Bag - Provider: Guera Gibbons RN) 030 (Stopped - Provider: Guera Gibbons RN) lactated ringers infusion 125 mL/hr, Intravenous, Continuous, Starting on Alejandrina 06/27/18 at 0030 Magnesium Sulfate-Lact Ringers 40 GM/580ML 2 g/hr (29 mL/hr), Intravenous, Continuous, Starting on Sun06/28/18 at 0315, For 7 days 0231 (Due)0332 (New Bag - Provider: Guera Gibbons RN)195 (New Bag - Provider: Tom Matamoros RN) 0304 (Stopped - Provider: Guera Gibbons RN) oxytocin in sodium chloride (PITOCIN) 30 UNIT/500ML infusion solution 2-24 naomy-units/min (2-24 mL/hr), Intravenous, Titrated, Starting on Alejandrina 06/27/18 at 0500, Start at 2 naomy units/min and increase by 2 naomy units/min every 30 min until contractions adequate to create cervical change. Notify physician for hyperstimulation. 0010 (Due) ropivacaine (NAROPIN) 0.2 % injection 15 mL/hr, Epidural, Continuous, Starting on Alejandrina 06/27/18 at 0930, Anesthesiologist to adjust rate as needed. RN may replace epidural infusion fluids as ordered. PRN Medication Order 06/28/2018 06/29/2018 06/30/2018 acetaminophen (TYLENOL) tablet 650 mg 650 mg, Oral, Every 4 Hours PRN, Mild Pain, Headache, Starting on Sun06/28/18 at 0031, Do not exceed 4 grams of acetaminophen in a 24 hr period. If given for pain, use the following pain scale: Mild Pain = Pain Score of 1-3, CPOT 1-2 Moderate Pain = Pain Score of 4-6, CPOT 3-4 Severe Pain = Pain Score of 7-10, CPOT 5-8 0112 (Given - Provider: Guera Gibbons RN) benzocaine (AMERICAINE) 20 % rectal ointment 1 application 1 application , Rectal, As Needed, Hemorrhoids, Starting on 06/29/18 at 1615, May leave at bedside. {SP} bglcmtynqz-ngxirpl-gggo vera (DERMOPLAST) 20-0.5 % topical spray Topical, As Needed, Mild Pain, perineal pain, Starting on 06/29/18 at 1615, May leave at bedside. If given for pain, use the following pain scale: Mild Pain = Pain Score of 1-3, CPOT 1-2 Moderate Pain = Pain Score of 4-6, CPOT 3-4 Severe Pain = Pain Score of 7-10, CPOT 5-8 bisacodyl (DULCOLAX) suppository 10 mg 10 mg, Rectal, Daily PRN, Constipation, Starting on 06/29/18 at 1615, Begin on post day 1 if no BM carboprost (HEMABATE) injection 250 mcg 250 mcg, Intramuscular, As Needed, hemorrhage, Starting on Sun06/28/18 at 0031, Refrigerate. Use filter needle to withdraw dose. diphenhydrAMINE (BENADRYL) injection 12.5 mg 12.5 mg, Intravenous, Every 8 Hours PRN, Itching, Starting on Alejandrina 06/27/18 at 0844, {BKC} This med may be ordered in other forms and routes. Before giving verify the last time the drug was given by any route/form. 25 mg may be given IV push over less than 1 minute. ePHEDrine syringe 5 mg 5 mg, Intravenous, Every 10 Minutes PRN, low blood pressure, Starting on Alejandrina 06/27/18 at 0844, Give IV push if: Maternal systolic blood pressure drops below 90 mmHg or 10% drop from baseline heart rate deceleration (20 beats per minute below baseline lasting more than 30 seconds) occurs with in 20 minutes of epidural dosing Discuss dosing with Anesthesia in patients with pre-eclampsia, hypertension, cardiac history or tocolytic. Caution: Look alike/sound alike drug alert famotidine (PEPCID) injection 20 mg 20 mg, Intravenous, Once As Needed, nausea, Starting on Alejandrina 06/27/18 at 0844, For 1 dose hydrocortisone (ANUSOL-HC) 2.5 % rectal cream 1 application 1 application , Rectal, As Needed, Hemorrhoids, Starting on 06/29/18 at 1615, May leave at bedside ibuprofen (ADVIL,MOTRIN) tablet 600 mg 600 mg, Oral, Every 6 Hours PRN, Mild Pain, Starting on 06/29/18 at 1615, If given for pain, use the following pain scale: Mild Pain = Pain Score of 1-3, CPOT 1-2 Moderate Pain = Pain Score of 4-6, CPOT 3-4 Severe Pain = Pain Score of 7-10, CPOT 5-8 lactated ringers bolus 1,000 mL 1,000 mL, Intravenous, at 2,000 mL/hr, Administer over 0.5 Hours, As Needed, preload for epidural, Starting on Alejandrina 06/27/18 at 0844, For 1 dose lanolin ointment Topical, As Needed, Dry Skin, nipple pain, Starting on 06/29/18 at 1615, May keep at bedside. lidocaine PF 1% (XYLOCAINE) injection 5 mL 5 mL, Intradermal, As Needed, IV starts, Starting on 06/26/18 at 2338 measles, mumps and rubella vaccine (MMR) injection 0.5 mL 0.5 mL, Subcutaneous, During Hospitalization, Immunization, Starting on 06/29/18 at 1615, For 1 dose, Give prior to discharge if indicated. metoclopramide (REGLAN) injection 10 mg 10 mg, Intravenous, Once As Needed, Nausea, Starting on Alejandrina 06/27/18 at 0844, For 1 dose misoprostol (CYTOTEC) tablet 800 mcg 800 mcg, Rectal, As Needed, Hemorrhage, Starting on 06/28/18 at 0031 Morphine sulfate (PF) injection 2 mg 2 mg, Intravenous, Every 2 Hours PRN, Moderate Pain, Starting on Sun06/28/18 at 0031, For 10 days, {DERRICK} Caution: Look alike/sound alike drug alert If given for pain, use the following pain scale: Mild Pain = Pain Score of 1-3, CPOT 1-2 Moderate Pain = Pain Score of 4-6, CPOT 3-4 Severe Pain = Pain Score of 7-10, CPOT 5-8 Morphine sulfate (PF) injection 2 mg 2 mg, Intravenous, Every 2 Hours PRN, Severe Pain, Starting on Sun06/28/18 at 0031, For 10 days, {DERRICK} Caution: Look alike/sound alike drug alert If given for pain, use the following pain scale: Mild Pain = Pain Score of 1-3, CPOT 1-2 Moderate Pain = Pain Score of 4-6, CPOT 3-4 Severe Pain = Pain Score of 7-10, CPOT 5-8 ondansetron (ZOFRAN) injection 4 mg 4 mg, Intravenous, Every 6 Hours PRN, Nausea, Vomiting, Starting on Alejandrina 06/27/18 at 0751 0307 (Given - Provider: Guera Gibbons RN) oxyCODONE-acetaminophen (PERCOCET) 5-325 MG per tablet 1 tablet 1 tablet, Oral, Every 4 Hours PRN, Severe Pain, Starting on 06/29/18 at 1615, For 10 days, {DERRICK} Do not exceed 4 grams of acetaminophen in a 24 hr period. If given for pain, use the following pain scale: Mild Pain = Pain Score of 1-3, CPOT 1-2 Moderate Pain = Pain Score of 4-6, CPOT 3-4 Severe Pain = Pain Score of 7-10, CPOT 5-8 oxyCODONE-acetaminophen (PERCOCET) 5-325 MG per tablet 1 tablet 1 tablet, Oral, Every 4 Hours PRN, Moderate Pain, Starting on Sun06/28/18 at 0031, For 10 days, {DERRICK} Do not exceed 4 grams of acetaminophen in a 24 hr period. If given for pain, use the following pain scale: Mild Pain = Pain Score of 1-3, CPOT 1-2 Moderate Pain = Pain Score of 4-6, CPOT 3-4 Severe Pain = Pain Score of 7-10, CPOT 5-8 oxyCODONE-acetaminophen (PERCOCET) 7.5-325 MG per tablet 2 tablet (CANCELED) 2 tablet, Oral, Every 4 Hours PRN, Severe Pain, Starting on Sun06/28/18 at 0031, For 10 days, Do not exceed more than 4 g acetaminophen in 24 hour period {DERRICK} Do not exceed 4 grams of acetaminophen in a 24 hr period. If given for pain, use the following pain scale: Mild Pain = Pain Score of 1-3, CPOT 1-2 Moderate Pain = Pain Score of 4-6, CPOT 3-4 Severe Pain = Pain Score of 7-10, CPOT 5-8 0042 (Given - Provider: Guera Gibbons RN) promethazine (PHENERGAN) injection 12.5 mg(Linked Group 2) 12.5 mg, Intravenous, Every 6 Hours PRN, Nausea, Vomiting, Starting on Sun06/28/18 at 0031, For IV administration must dilute in normal saline to 20 mL and give slow IV push If giving IV, dilute dose in 20 mL NS and slow IV push over 3-5 minutes. Administer through large bore vein (not hand or wrist) through running IV line at port furthest from patient's vein. promethazine (PHENERGAN) injection 12.5 mg(Linked Group 2) 12.5 mg, Intramuscular, Every 6 Hours PRN, Nausea, Vomiting, Starting on Sun06/28/18 at 0031, IM injection. If giving IV, dilute dose in 20 mL NS and slow IV push over 3-5 minutes. Administer through large bore vein (not hand or wrist) through running IV line at port furthest from patient's vein. promethazine (PHENERGAN) suppository 12.5 mg(Linked Group 2) 12.5 mg, Rectal, Every 6 Hours PRN, Nausea, Vomiting, Starting on Sun06/28/18 at 0031, If BOTH ondansetron (ZOFRAN) and promethazine (PHENERGAN) are ordered use ondansetron first and THEN promethazine IF ondansetron is ineffective. promethazine (PHENERGAN) tablet 12.5 mg(Linked Group 2) 12.5 mg, Oral, Every 6 Hours PRN, Nausea, Vomiting, Starting on Sun06/28/18 at 0031, If BOTH ondansetron (ZOFRAN) and promethazine (PHENERGAN) are ordered use ondansetron first and THEN promethazine IF ondansetron is ineffective. {BKC} promethazine (PHENERGAN) tablet 25 mg 25 mg, Oral, Every 6 Hours PRN, Nausea, Vomiting, Starting on 06/29/18 at 1615, If BOTH ondansetron (ZOFRAN) and promethazine (PHENERGAN) are ordered use ondansetron first and THEN promethazine IF ondansetron is ineffective. {BKC} sodium chloride 0.9 % flush 1-10 mL 1-10 mL, Intravenous, As Needed, Line Care, Starting on Sun06/26/18 at 2338 witch moody-glycerin (TUCKS) pad 1 pad 1 pad (1 each), Topical, As Needed, Irritation, Hemorrhoids, Starting on 06/29/18 at 1615, May leave at bedside. zolpidem (AMBIEN) tablet 5 mg 5 mg, Oral, Nightly PRN, Sleep, Starting on Alejandrina 06/27/18 at 0307, For 10 days, {DERRICK} Linked Groups Order Group 1: oxytocin in sodium chloride (PITOCIN) 30 UNIT/500ML infusion solution (COMPLETED) 650 mL/hr, Intravenous, Once, On Sun06/28/18 at 0130, For 1 dose, Give a 333 ml bolus over 30 minutes (650 ml/hr) followed by 85 ml/hr x 4 hours. Followed by oxytocin in sodium chloride (PITOCIN) 30 UNIT/500ML infusion solution (COMPLETED)Jump to med 85 mL/hr, Intravenous, Once, On Sun06/28/18 at 0130, For 1 dose, Give 85 ml/hr over 4 hours. Group 2: promethazine (PHENERGAN) injection 12.5 mgJump to med 12.5 mg, Intravenous, Every 6 Hours PRN, Nausea, Vomiting, Starting on Sun06/28/18 at 0031, For IV administration must dilute in normal saline to 20 mL and give slow IV push If giving IV, dilute dose in 20 mL NS and slow IV push over 3-5 minutes. Administer through large bore vein (not hand or wrist) through running IV line at port furthest from patient's vein. Or promethazine (PHENERGAN) injection 12.5 mgJump to med 12.5 mg, Intramuscular, Every 6 Hours PRN, Nausea, Vomiting, Starting on Sun06/28/18 at 0031, IM injection. If giving IV, dilute dose in 20 mL NS and slow IV push over 3-5 minutes. Administer through large bore vein (not hand or wrist) through running IV line at port furthest from patient's vein. Or promethazine (PHENERGAN) suppository 12.5 mgJump to med 12.5 mg, Rectal, Every 6 Hours PRN, Nausea, Vomiting, Starting on Sun06/28/18 at 0031, If BOTH ondansetron (ZOFRAN) and promethazine (PHENERGAN) are ordered use ondansetron first and THEN promethazine IF ondansetron is ineffective. Or promethazine (PHENERGAN) tablet 12.5 mgJump to med 12.5 mg, Oral, Every 6 Hours PRN, Nausea, Vomiting, Starting on Sun06/28/18 at 0031, If BOTH ondansetron (ZOFRAN) and promethazine (PHENERGAN) are ordered use ondansetron first and THEN promethazine IF ondansetron is ineffective. {BKC} documented in this encounter Care Teams Health Care Facility Administrator Relationship Specialty Start Date End Date Provider, [place] [address] PCP - General 04/07/18 08/16/20 documented as of this encounter
--- OUTSIDE RECORDS SUMMARY | 2024-09-18 09:16 | XMS_ITS | Encounter Summary ---
Author Organization [facility] Address [address] [place] [address] Care Team Providers Care Mortgage Coordinator Name Role Phone Anival Ames MD Primary Care Provider [phone] Reason for Visit * Diagnostic Imaging (Emergency) - Closed Specialty Diagnoses / Procedures Referred By Contac t Referred To Contact Obstetrics and Gynecology Diagnoses Intrauterine contraceptive device threads lost, initial encounter Procedures US Non-ob Transvaginal Debi Bashir APRN [facility] [address] [place] [address] Phone: tel: fax: Referral ID Status Reason Start Date Expiration Date Visits Re quested Visits Authorized [id number] Closed 08/17/2020 08/17/2021 1 1 Encounter Details Date Type Department Care Team (Latest Contact Info) Description 08/17/2020 4:20 PM EDT Ancillary Procedure [facility] [address] [place] [address] Intrauterine contraceptive device threads lost, initial encounter Social History Tobacco Use Types Packs/Day Years Used Date Smoking Tobacco: Never Smokeless Tobacco: Never Alcohol Use Standard Drinks/Week Comments No 0 (1 standard drink = 0.6 oz pur e alcohol) [place] Depression Scale Answer Date Recorded Retired [place] Depression Score 0 06/29/2018 Retired EPD Scale: [...] Associated Diagnosis Comments US NON-OB TRANSVAGINAL STAT 08/17/2020 4:30 PM EDT Intrauterine contraceptive device threads lost, initial encounter documented in this encounter Results * US Non-ob Transvaginal (08/17/2020 4:30 PM EDT) Anatomical Region Laterality Modality Body Ultrasound 08/17/2020 4:13 PM EDT Narrative 08/20/2020 4:34 PM EDT PAT NAME: ANDERS CLEARY MED REC#: [id number] DA: [id number] PAT GEND: F PAT TYPE: O EXAM GABBY: [id number] REF PHYS DEBI BASHIR Indication ======== iud check Comparison Studies There are no relevant prior studies to which this study is being compared Method ======= Voluson E6, Transvaginal ultrasound examination, 3D ultrasound examination. View: Adequate view Uterus ====== Uterus: Normal Description of uterine malformations: none Myometrium: Homogeneous Endometrium: Uniform Cervix details: Normal Uterus long 59 mm Uterus ap 39 mm Uterus tr 49 mm Uterus Vol 58.5 cm?? Endometrial thickness, total 3.4 mm IUCD ===== Position control Location: IUCD placed correctly at the fundus of the uterus Right Ovary Rt ovary: Normal Rt ovary D1 31.8 mm Rt ovary D2 18.7 mm Rt ovary D3 15.1 mm Rt ovary Vol 4.7 cm?? Left Ovary ========= Lt ovary: Normal Lt ovary D1 31.0 mm Lt ovary D2 21.2 mm Lt ovary D3 13.80 mm Lt ovary Vol 4.7 cm?? Cul de Sac ========= Normal. No free fluid visualized Impression ========= Normal pelvic ultrasound. There is an appropriately placed endometrial IUD Recommendation follow up as clinically indicated [employer] Baseball Coach: RT Amandeep Díaz RDMS Physician: Samuel Heart MD, CLAUDIAOG Electronically signed by: Samuel Heart MD, FACOG at: 16:34 Procedure Note Samuel Heart MD - 08/20/2020 PAT NAME: ANDERS CLEARY MED REC#: [id number] DA: [id number] PAT GEND: F PAT TYPE: O EXAM GABBY: [id number] REF PHYS DEBI BASHIR Indication ======== iud check Comparison Studies There are no relevant prior studies to which this study is beingcompared Method ======= Voluson E6, Transvaginal ultrasound examination, 3D ultrasoundexamination. View: Adequate view Uterus ====== Uterus:Normal Description of uterine malformations:none Myometrium:Homogeneous Endometrium:Uniform Cervix details:Normal Uterus long59 mm Uterus ap39 mm Uterus tr49 mm Uterus Vol58.5 cm?? Endometrial thickness, total3.4 mm IUCD ===== Position control Location: IUCD placed correctly at the fundus of the uterus Right Ovary Rt ovary:Normal Rt ovary D131.8 mm Rt ovary D218.7 mm Rt ovary D315.1 mm Rt ovary Vol4.7 cm?? Left Ovary ========= Lt ovary:Normal Lt ovary D131.0 mm Lt ovary D221.2 mm Lt ovary D313.80 mm Lt ovary Vol4.7 cm?? Cul de Sac ========= Normal. No free fluid visualized Impression ========= Normal pelvic ultrasound. There is an appropriately placed endometrialIUD Recommendation follow up as clinically indicated [employer] Baseball Coach: RT Amandeep Díaz RDMS Physician: Samuel Heart MD, FACOG Electronically signed by: Samuel Heart MD, FACOG at: 16:34 us Debi Bashir APRN IMG US ORDERABLES Final Re sult documented in this encounter Visit Diagnoses Diagnosis Intrauterine contraceptive device threads lost, initial encounter documented in this encounter Care Teams Mortgage Coordinator Relationship Specialty Start Date End Date Anival Ames MD PCP - General Emergency Medicine 08/17/20 documented as of this encounter
--- OUTSIDE RECORDS SUMMARY | 2024-09-18 09:16 | XMS_ITS | Encounter Summary ---
Author Organization Healthcare Address [address] [place] [address] Care Team Providers Care Service Station Cashier Name Role Phone Unavailable Primary Care Provider Unavailabl e Encounter Details Date Type Department Care Team (Late st Contact Info) Description 10/13/2015 Legacy AEHR Vitals Encounter [facility] OUTPATIENT CONVERSIONS [address] [place] [address] Provider, MD Khadar [address] [place] [address] Social History Tobacco Use Types Packs/Day [...] - Height 170.2 cm (5' 7 ) 10/13/2015 1:57 PM EST Body Mass Index - - documented in this encounter Plan of Treatment Not on file documented as of this encounter Visit Diagnoses Not on filedocumented in this encounter
--- OUTSIDE RECORDS SUMMARY | 2024-09-18 09:16 | XMS_ITS | Encounter Summary ---
Author Organization [facility] Address [address] [place] [address] Care Team Providers Care Bridal Consultant Name Role Phone Anival Ames MD Primary Care Provider [phone] Reason for Visit * Reason Comments Gynecologic Exam Encounter Details Date Type Department Care Team (Late st Contact Info) Description 05/04/2021 3:45 PM EDT Office Visit [facility] [address] [place] [address] Evy Valdez, PROGRAM ADVISOR [address] [facility] [address] [place] [address] Acute vaginitis (Primary Dx); Screening for STD (sexually transmitted disease); Vulvar itching Social History Tobacco Use Types Packs/Day Years Used Date Smoking Tobacco: Never Smokeless Tobacco: Never Alcohol Use Standard Drinks/Week Comments No 0 (1 standard drink = 0.6 oz pur e alcohol) [place] Depression Scale Answer Date Recorded Retired [place] Depression Score 0 06/29/2018 Retired EPD Scale: [...] Sign Reading Time Taken Comments Blood Pressure 132/84 05/04/2021 4:26 PM EDT Pulse - - Temperature - - Respiratory Rate - - Oxygen Saturation - - Inhaled Oxygen Concentration - - Weight 95.8 kg (211 lb 3.2 oz) 05/04/2021 4:26 P M EDT Height 172.7 cm (5' 8 ) 05/04/2021 4:26 PM EDT Body Mass Index 32.11 05/04/2021 4:26 PM EDT documented in this encounter Progress Notes * Evy Valdez, PROGRAM ADVISOR - 05/04/2021 3:45 PM EDT Chief Complaint Patient presents with ??? Gynecologic Exam Subjective HPI Geovani Cleary is a 20 y.o. female, , who presents for vaginal itching and a swollen feelingin her vagina. She states she has experienced this problem for 1 week. She describes the severity as mild. She states that the problem is annoying. The patient reports additional symptoms as none. Her last LMP was Patient's last menstrual period was 04/27/2021.. Periods are regular every 28-30 days, lasting 2-7 days. Dysmenorrhea:mild, occurring first 1-2 days of flow. Patient reports problemswith: none. Partner Status: Marital Status: single. New Partners since last visit: no. Desires STD Screening: no. Additional CHUTE FEEDER History Current contraception: contraceptive methods: IUD. Insertion date: 06/2018 Desires to: continue contraception History of abnormal Pap smear: n/a Last mammogram: never Tobacco Usage?: No OB History 1 Para 1 Term 1 AB Living 1 SAB TAB Ectopic Molar Multiple 0 Live Births 1 Health Maintenance Topic Date Due ??? Annual Gynecologic Pelvic and Breast Exam Never done ??? ANNUAL PHYSICAL Never done ??? HPV VACCINES (1 - 2-dose series) Never done ??? COVID-19 Vaccine (1) Never done ??? PAP SMEAR Never done ??? CHLAMYDIA SCREENING 11/14/2018 ??? TDAP/TD VACCINES (1 - Tdap) Never done ??? INFLUENZA VACCINE 05/29/2021 ??? HEPATITIS C SCREENING Completed ??? Pneumococcal Vaccine 0-64 Aged Out ??? MENINGOCOCCAL VACCINE Aged Out The additional following portions of the patient's history were reviewed and updated as appropriate: allergies, current medications, past family history, past medical history, past social history, past surgical history and problem list. Review of Systems All other systems reviewed and are negative. I have reviewed and agree with the HPI, ROS, and historical information as entered above. Evy Valdez APRN Objective BP 132/84 (BP Location: Left arm, Patient Position: Sitting, Cuff Size: Adult) Ht 172.7 cm (68 ) Wt 95.8 kg (211 lb 3.2 oz) LMP 04/27/2021 No BMI 32.11 kg/m?? Physical Exam Vitals and nursing note reviewed. Exam conducted with a bead worker sewing present. Constitutional: General: She is not in acute distress. Appearance: Normal appearance. She is not ill-appearing. Pulmonary: Effort: Pulmonary effort is normal. Abdominal: General: There is no distension. Palpations: Abdomen is soft. There is no mass. Tenderness: There is no abdominal tenderness. There is no guarding or rebound. Hernia: No hernia is present. Genitourinary: General: Normal vulva. Vagina: Normal. Cervix: Normal. Uterus: Normal. Adnexa: Right adnexa normal and left adnexa normal. Skin: General: Skin is warm and dry. Neurological: Mental Status: She is alert and oriented to person, place, and time. Psychiatric: Mood and Affect: Mood normal. Behavior: Behavior normal. Assessment/Plan Assessment Problem List Items Addressed This Visit None Visit Diagnoses Acute vaginitis - Primary Relevant Orders NuSwab VG+ - Swab, Cervix POC Wet Prep (Completed) Screening for STD (sexually transmitted disease) Plan D/w pt no sign of infection noted now. Take 2 Diflucan. Will notify of Nuswab results. If symptoms continue and testing negative, call for further eval when not bleeding. Evy Valdez APRN 05/04/2021 documented in this encounter Plan of Treatment Not on file documented as of this encounter Procedures Procedure Name Priority Date/Time Associated Diagnosis Comments POCT WET MOUNT (AKA FERN TEST, VAGINAL FLUID) Routine 05/04/2021 4:58 PM EDT Acute vaginitis NUSWAB VG+ Routine 05/04/2021 12:00 AM EDT Acute vaginitis documented in this encounter Results * POC Wet Prep (05/04/2021 4:58 PM EDT) Wet Prep few yeast buds [facility] Vaginal Fluid 05/04/2021 4:5 8 PM EDT us Evy Christiana Solanof PROGRAM ADVISOR POINT OF CARE TEST ORDERABLES Final Result [facility]
[address] [place] [address], * NuSwab VG+ - Swab, Cervix (05/04/2021 12:00 AM EDT) Atopobium Vaginae Low - 0 Score [facility] [...] Onelia Glabrata, MICHAEL Negative Negative [facility] Trichomonas vaginosis Negative Negative [facility] Chlamydia trachomatis, MICHAEL Negative Negative [facility] Neisseria gonorrhoeae, MICHAEL Negative Negative [facility] Swab Specimen from cervix or vagina / Unknown 05/04/2021 05/04/2021 Comment:SWAB RELEASE TO RALPH Whiting [facility]) - 05/06/2021 11:09 AM EDT Test(s) 212292-Buxldag albicans, MICHAEL; 585351-Iskvzwz glabrata, MICHAEL was developed and its performance characteristics determined by [facility]. It has not been cleared or approved by the Food and Drug Administration. Performed at: ??01 - [facility] [address] ??[id number] Grill Chef: Vanessa Lewis MD, Phone: ??[phone] us Evy Valdez PROGRAM ADVISOR MICROBIOLOGY - GENERAL ORDERA BLES Final Result [facility] ([facility]) [address] [place] [address], [facility] [address] [place] [address], [place] [phone] documented in this encounter Visit Diagnoses Diagnosis Acute vaginitis- Primary Unspecified vaginitis and vulvovaginitis Screening for STD (sexually transmitted disease) Vulvar itching documented in this encounter Care Teams Bridal Consultant Relationship Specialty Start Date End Date Anival Ames MD PCP - General Emergency Medicine 08/17/20 documented as of this encounter
--- OUTSIDE RECORDS SUMMARY | 2024-09-18 09:16 | XMS_ITS | Encounter Summary ---
Author Organization Healthcare Address [address] [place] [address] Care Team Providers Care Calender Supervisor Name Role Phone Unavailable Primary Care Provider Unavailabl e Encounter Details Date Type Department Care Team (Late st Contact Info) Description 07/31/2016 Legacy AEHR Vitals Encounter [facility] CONVERSIONS [address] [place] [address] Provider, MD Khadar [address] [place] [address] Social History Tobacco Use Types Packs/Day [...] - Inhaled Oxygen Concentration - - Weight 79.8 kg (175 lb 15.9 oz) 07/31/2016 9:15 AM EDT Height 170.2 cm (5' 7 ) 07/31/2016 9:15 AM EDT Body Mass Index 27.56 07/31/2016 9:15 AM EDT Body Mass Index Percentile 92.42% 07/31/2016 9:1 5 AM EDT Growth Chart: CDC (Girls, 2- 20 Years) documented in this encounter Plan of Treatment Not on file documented as of this encounter Visit Diagnoses Not on filedocumented in this encounter
--- OUTSIDE RECORDS SUMMARY | 2024-09-18 09:16 | XMS_ITS | Encounter Summary ---
Author Organization Healthcare Address [address] [place] [address] Care Team Providers Care Single Needle Operator Name Role Phone Unavailable Primary Care Provider Unavailabl e Encounter Details Date Type Department Care Team (Late st Contact Info) Description 04/26/2016 Legacy AEHR Vitals Encounter [facility] OUTPATIENT CONVERSIONS [address] [place] [address] Provider, MD Khadar [address] [place] [address] Social History Tobacco Use Types Packs/Day [...] Weight 79.8 kg (175 lb 15.9 oz) 04/26/2016 8:34 AM EDT Height 170.2 cm (5' 7 ) 04/26/2016 8:34 AM EDT Body Mass Index 27.56 04/26/2016 8:34 AM EDT Body Mass Index Percentile 92.74% 04/26/2016 8:3 4 AM EDT Growth Chart: CDC (Girls, 2- 20 Years) documented in this encounter Plan of Treatment Not on file documented as of this encounter Visit Diagnoses Not on filedocumented in this encounter
--- OUTSIDE RECORDS SUMMARY | 2024-09-18 09:16 | XMS_ITS | Encounter Summary ---
Author Organization Healthcare Address [address] [place] [address] Care Team Providers Care Director Validation Name Role Phone Unavailable Primary Care Provider Unavailabl e Encounter Details Date Type Department Care Team (Late st Contact Info) Description 12/06/2015 Legacy AEHR Vitals Encounter [facility] OUTPATIENT CONVERSIONS [address] [place] [address] Provider, MD Khadar [address] [place] [address] Social History Tobacco Use Types Packs/Day [...] Weight 79.8 kg (175 lb 15.9 oz) 12/06/2015 3:36 PM EST Height 170.2 cm (5' 7 ) 12/06/2015 3:36 PM EST Body Mass Index 27.56 12/06/2015 3:36 PM EST Body Mass Index Percentile 93.19% 12/06/2015 3:3 6 PM EST Growth Chart: CDC (Girls, 2- 20 Years) documented in this encounter Plan of Treatment Not on file documented as of this encounter Visit Diagnoses Not on filedocumented in this encounter
--- OUTSIDE RECORDS SUMMARY | 2024-09-18 09:16 | XMS_ITS | Encounter Summary ---
Author Organization [facility] Address [address] [place] [address] Care Team Providers Care Solvent Plant Treater Name Role Phone Anival Ames MD Primary Care Provider [phone] Encounter Details Date Type Department Care Team (Late st Contact Info) Description 01/30/2022 Telephone [facility] [address] [place] [address] Evy Valdez, ECOMMERCE MANAGER [address] [facility] [address] [place] [address] Social History Tobacco Use Types Packs/Day Years Used Date Smoking Tobacco: Never Smokeless Tobacco: Never Alcohol Use Standard Drinks/Week Comments No 0 (1 standard drink = 0.6 oz pur e alcohol) [place] Depression Scale Answer Date Recorded Retired [place] Depression Score 0 06/29/2018 Retired EPD Scale: [...] Telephone Encounter - Rachana Cruz MA - 02/01/2022 11:06 AM EDT Called left Vm for patient to call if would like to precede with removing IUD or taking pills for bleeding * Telephone Encounter - Evy Valdez APRN - 01/31/2022 7:00 PM EDT We can either remove IUD or she can take 3 packs of OCPs to help. * Telephone Encounter - Rachana Cruz MA - 01/31/2022 9:05 AM EDT Called patient with lab results she verbalized understanding Patient stated she has started bleeding again and would like to know what we would like to do Thanks * Telephone Encounter - Rachana Cruz MA - 01/30/2022 5:19 PM EDT Left vm for patient to call for results * Telephone Encounter - Cherry Mosher RegSched Rep - 01/30/2022 3:45 PM EDT Please call back regarding lab results. documented in this encounter Plan of Treatment Not on file documented as of this encounter Visit Diagnoses Not on filedocumented in this encounter Care Teams Solvent Plant Treater Relationship Specialty Start Date End Date Anival Ames MD PCP - General Emergency Medicine 08/17/20 documented as of this encounter
--- OUTSIDE RECORDS SUMMARY | 2024-09-18 09:16 | XMS_ITS | Encounter Summary ---
Author Organization [facility] Address [address] [place] [address] Care Team Providers Care Material Handling Equipment Stevedore Name Role Phone Anival Ames MD Primary Care Provider [phone] Reason for Visit * Diagnostic Imaging (Routine) - Closed Specialty Diagnoses / Procedures Referred By Contac t Referred To Contact Radiology Diagnoses First trimester Procedures US Ob Transvaginal Kelsie Valera MD [address] [facility] [address] [place] [address] Phone: tel: fax: [facility] [address] [place] [address] Phone: tel: fax: Referral ID Status Reason Start Date Expiration Date Visits Re quested Visits Authorized [id number] Closed 09/26/2022 09/26/2023 1 1 Encounter Details Date Type Department Care Team (Latest Contact Info) Description 09/28/2022 8:30 AM EST Ancillary Procedure [facility] [address] [place] [address] First trimester Social History Tobacco Use Types Packs/Day Years Used Date Smoking Tobacco: Never Smokeless Tobacco: Never Alcohol Use Standard Drinks/Week Comments No 0 (1 standard drink = 0.6 oz pur e alcohol) Lissie Depression Scale Answer Date Recorded Retired Lissie Depression Score 0 06/29/2018 Retired EPD Scale: [...] Priority Date/Time Associated Diagnosis Comments US OB TRANSVAGINAL Routine 09/28/2022 9: 02 AM EST First trimester documented in this encounter Results * US Ob Transvaginal (09/28/2022 9:02 AM EST) Anatomical Region Laterality Modality Body Ultrasound 09/28/2022 8:35 AM EST Narrative 09/28/2022 4:07 PM EST PAT NAME: ANDERS CLEARY MED REC#: [id number] DA: [id number] PAT GEND: F PAT TYPE: O EXAM GABBY: [id number] REF PHYS KELSIE VALERA Indication ======== Dating Comparison Studies There are no relevant prior studies to which this study is being compared Method ======= Voluson E6, Transvaginal ultrasound examination. View: Adequate view ========= Orozco . Number of gestational sacs: 1 Single intrauterine present Dating ====== Method of dating: based on the LMP LMP on: 08/17/2022 GA by LMP 6 w + 0 d MAURILIO by LMP: 05/24/2023 Ultrasound examination on: 09/28/2022 GA by U/S based upon: CRL GA by U/S 6 w + 1 d MAURILIO by U/S: 05/23/2023 Assigned: based on the LMP, selected on 09/28/2022 Assigned GA 6 w + 0 d Assigned MAURILIO: 05/24/2023 length 280 d Biometry Standard FHR 120 bpm CRL 3.9 mm 6w 1d ?8% ?[facility] Evaluation Cardiac activity present. Placenta Too early to evaluate. Amniotic fluid normal. Maternal Structures Uterus / Cervix Uterus: Visualized Uterus position: Anteverted Cervix: Visualized Ovaries / Tubes / Adnexa Rt ovary: Visualized Rt ovary D1 48.3 mm Rt ovary D2 21.1 mm Rt ovary D3 24.8 mm Rt ovary Vol 13.2 cm?? Rt ovarian corpus luteum: visualized Lt ovary: Visualized Lt ovary D1 26.2 mm Lt ovary D2 17.1 mm Lt ovary D3 11.60 mm Lt ovary Vol 2.7 cm?? Impression Single viable intrauterine with normal cardiac activity and biometry consistent with clinical dates measuring 6 wk 1 d. Recommendation Repeat U/S in ~ 1 - 2 week Hr Consultant: RT Amandeep Díaz, [facility] Physician: Connor Valera MD, FACOG Electronically signed by: Connor Valera MD, FACOG at: 16:07 Procedure Note Kelsie Valera MD - 09/28/2022 PAT NAME: ANDERS CLEARY MED REC#: [id number] DA: [id number] PAT GEND: F PAT TYPE: O EXAM GABBY: [id number] REF PHYS KELSIE VALERA Indication ======== Dating Comparison Studies There are no relevant prior studies to which this study is beingcompared Method ======= Voluson E6, Transvaginal ultrasound examination. View: Adequate view ========= Orozco . Number of gestational sacs: 1 Single intrauterine present Dating ====== Method of dating:based on the LMP LMP on:08/17/2022 GA by LMP6 w + 0 d MAURILIO by LMP:05/24/2023 Ultrasound examination on:09/28/2022 GA by U/S based upon:CRL GA by U/S6 w + 1 d MAURILIO by U/S:05/23/2023 Assigned:based on the LMP, selected on 09/28/2022 Assigned GA6 w + 0 d Assigned MAURILIO:05/24/2023 [id number] d Biometry Standard FIA285 bpm CRL3.9 mm 6w 1d 8% [facility] Evaluation Cardiac activity present. Placenta Too early to evaluate. Amniotic fluid normal. Maternal Structures Uterus / Cervix Uterus:Visualized Uterus position:Anteverted Cervix:Visualized Ovaries / Tubes / Adnexa Rt ovary:Visualized Rt ovary D148.3 mm Rt ovary D221.1 mm Rt ovary D324.8 mm Rt ovary Vol13.2 cm?? Rt ovarian corpus luteum:visualized Lt ovary:Visualized Lt ovary D126.2 mm Lt ovary D217.1 mm Lt ovary D311.60 mm Lt ovary Vol2.7 cm?? Impression Single viable intrauterine with normal cardiac activity andbiometry consistent with clinical dates measuring 6 wk 1 d. Recommendation Repeat U/S in ~ 1 - 2 week Hr Consultant: Greyson Sharp, RT R, [facility] Physician: Connor Valera MD, FACOG Electronically signed by: Connor Valera MD, FACOG at: 0116:07 Kelsie Valera MD [facility] US ORDERABLES Final Re sult documented in this encounter Visit Diagnoses Diagnosis First trimester state, incidental Initial obstetric visit in first trimester- Primary , unspecified gestational age Obesity (BMI 30-39.9) Screening for cervical cancer Screening for malignant neoplasm of the cervix documented in this encounter Care Teams Material Handling Equipment Stevedore Relationship Specialty Start Date End Date Anival Ames MD PCP - General Emergency Medicine 08/17/20 documented as of this encounter
--- OUTSIDE RECORDS SUMMARY | 2024-09-18 09:16 | XMS_ITS | Encounter Summary ---
[facility] Organization [facility] Address [address] [place] [address] Care Team Providers Care Nail Kegger Name Role Phone Anival Ames MD Primary Care Provider [phone] Encounter Details Date Type Department Care Team (Late st Contact Info) Description 02/01/2022 Telephone [facility] OBGYN [address] [place] [address] Evy Valdez, ROBOTIC WELD TECHNICIAN [address] [facility] [address] [place] [address] Social History Tobacco Use Types Packs/Day Years Used Date Smoking Tobacco: Never Smokeless Tobacco: Never Alcohol Use Standard Drinks/Week Comments No 0 (1 standard drink = 0.6 oz pur e alcohol) [place] Depression Scale Answer Date Recorded Retired [place] Depression Score 0 06/29/2018 Retired EPD Scale: [...] encounter Miscellaneous Notes * Telephone Encounter - Maty Knapp RN - 02/01/2022 6:12 PM EDT Notified patient. Patient V/U * Telephone Encounter - Rachana Cruz MA - 02/01/2022 12:57 PM EDT Patient called back would like to try the 3 months of pills with the Mirena to stop bleeding Pleaseadvise which BC we can Use Thanks * Telephone Encounter - Minal Jett - 02/01/2022 12:47 PM EDT Pt stated she is concerned because she has been on her period for about six weeks. Pt would like a nurse to call her back. documented in this encounter Plan of Treatment Not on file documented as of this encounter Visit Diagnoses Not on filedocumented in this encounter Care Teams Nail Kegger Relationship Specialty Start Date End Date Anival Ames MD PCP - General Emergency Medicine 08/17/20 documented as of this encounter
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
--- OUTSIDE RECORDS SUMMARY | 2024-09-18 09:16 | XMS_ITS | Encounter Summary ---
Author Organization [facility] Address [address] [place] [address] Care Team Providers Care Instrument Repairer Name Role Phone Unavailable Primary Care Provider Unavailabl e Encounter Details Date Type Department Care Team (Late st Contact Info) Description 03/01/2016 Legacy AEHR Vitals Encounter [facility] OUTPATIENT CONVERSIONS [address] [place] [address] Provider, MD Khadar [address] [place] [address] Social History Tobacco Use Types Packs/Day [...] Weight 79.8 kg (175 lb 15.9 oz) 03/01/2016 9:38 AM EDT Height 170.2 cm (5' 7 ) 03/01/2016 9:38 AM EDT Body Mass Index 27.56 03/01/2016 9:38 AM EDT Body Mass Index Percentile 92.92% 03/01/2016 9:3 8 AM EDT Growth Chart: CDC (Girls, 2- 20 Years) documented in this encounter Plan of Treatment Not on file documented as of this encounter Visit Diagnoses Not on filedocumented in this encounter
--- OUTSIDE RECORDS SUMMARY | 2024-09-18 09:16 | XMS_ITS | Encounter Summary ---
[facility] Organization [facility] Address [address] [place] [address] Care Team Providers Care Sinter Press Operator Name Role Phone Anival Ames MD Primary Care Provider [phone] Reason for Visit * Reason Comments IUD removal Encounter Details Date Type Department Care Team (Late st Contact Info) Description 03/30/2022 9:30 AM EDT Office Visit [facility] OBGYN [address] [place] [address] Roland Pinzon MD [address] [place] [address] Encounter for IUD removal (Primary Dx) Social History Tobacco Use Types Packs/Day Years Used Date Smoking Tobacco: Never Smokeless Tobacco: Never Alcohol Use Standard Drinks/Week Comments No 0 (1 standard drink = 0.6 oz pur e alcohol) [place] Depression Scale Answer Date Recorded Retired [place] Depression Score 0 06/29/2018 Retired EPD Scale: [...] Reading Time Taken Comments Blood Pressure 112/80 03/30/2022 9:36 AM EDT Pulse - - Temperature - - Respiratory Rate - - Oxygen Saturation - - Inhaled Oxygen Concentration - - Weight - - Height 172.7 cm (5' 8 ) 03/30/2022 9:36 AM EDT Body Mass Index - - documented in this encounter Progress Notes * Roland Pinzon MD - 03/30/2022 9:30 AM EDTAssociated Order(s): Remove Mirena IUD Drug Implant Post-Procedure Diagnose(s): Encounter for IUD removal IUD Removal Procedure Note Remove Mirena IUD Drug Implant Date/Time: 03/30/2022 10:16 AM Performed by: Roland Pinzon MD Authorized by: Roland Pinzon MD Preparation: Patient was prepped and draped in the usual sterile fashion. Local anesthesia used: no Anesthesia: Local anesthesia used: no Sedation: Patient sedated: no Patient tolerance: patient tolerated the procedure well with no immediate complications Type of IUD: Mirena Date of insertion: Known 2018 Reason for removal: Desires Procedure Time Out Documentation Procedure Details IUD strings visible: no Removal: An alligator forceps was entered through the cervical os after the cervix and vagina were prepped. The IUD was grasped and removed intact. 2 attempt(s) were needed for successful removal. The patient tolerated the procedure well. All appropriate instructions regarding removal were reviewed. Tolerated well No apparent complications Post procedure diagnosis : IUD removal Plans for contraception: no method, Rx vitamins. The patient was advised to call for any fever or for prolonged or severe pain or bleeding. She was advised to use motrin as needed for mild to moderate pain. Roland Pinzon MD 03/30/2022 documented in this encounter Plan of Treatment Not on file documented as of this encounter Procedures Procedure Name Priority Date/Time Associated Diagnosis Comments REMOVE AND INSERT DRUG IMPLANT Routine 03/30/2022 10:16 AM EDT Encounter for IUD removal documented in this encounter Results * Remove Mirena IUD Drug Implant (03/30/2022 10:16 AM EDT) Narrative Roland Pinzon MD - 03/30/2022 10:16 AM EDT Roland Pinzon MD ? 03/30/2022 10:19 AM Remove Mirena IUD Drug Implant Date/Time: 03/30/2022 10:16 AM Performed by: Roland Pinzon MD Authorized by: Roland Pinzon MD Preparation: Patient was prepped and draped in the usual sterile fashion. Local anesthesia used: no Anesthesia: Local anesthesia used: no Sedation: Patient sedated: no Patient tolerance: patient tolerated the procedure well with no immediate complications Roland Pinzon MD PROCEDURE/MINOR SURGICAL O RDERABLES Final Result documented in this encounter Visit Diagnoses Diagnosis Encounter for IUD removal- Primary documented in this encounter Care Teams Sinter Press Operator Relationship Specialty Start Date End Date Anival Ames MD PCP - General Emergency Medicine 08/17/20 documented as of this encounter
--- OUTSIDE RECORDS SUMMARY | 2024-09-18 09:16 | XMS_ITS | Encounter Summary ---
[facility] Address [address] [place] [address] Care Team Providers Care Substation Inspector Name Role Phone Provider, No Known Primary Care Provider Unavail able Encounter Details Date Type Department Care Team (Late st Contact Info) Description 06/26/2018 Prep for Surgery [facility] ORDERS ONLY [address] [place] [address] Jacek Walters MD [address] [facility] [address] [place] [address] 39 weeks gestation of (Primary Dx) Social History Tobacco Use Types Packs/Day Years Used Date Smoking Tobacco: Never Smokeless Tobacco: Never Alcohol Use Standard Drinks/Week Comments No 0 (1 standard drink = 0.6 oz pur e alcohol) [place] Depression Scale Answer Date Recorded Retired [place] Depression Score 0 06/29/2018 Retired EPD Scale: Thought of Harming Self 06/29/2018 Comments Yes Sex and Gender Information Value Date Recorded Sex Assigned at Not on file Legal Sex Female 4:02 PM EST Gender Identity Not on file Sexual Orientation Not on file documented as of this encounter Plan of Treatment Not on file documented as of this encounter Visit Diagnoses Diagnosis 39 weeks gestation of - Primary documented in this encounter Care Teams Substation Inspector Relationship Specialty Start Date End Date Provider, [place] [address] PCP - General 04/07/18 08/16/20 documented as of this encounter
--- OUTSIDE RECORDS SUMMARY | 2024-09-18 09:16 | XMS_ITS | Encounter Summary ---
Author Organization [facility] Address [address] [place] [address] Care Team Providers Care Infertility Medical Assistant Name Role Phone Unavailable Primary Care Provider Unavailabl e Encounter Details Date Type Department Care Team (Late st Contact Info) Description 06/12/2017 Legacy AEHR Vitals Encounter [facility] OUTPATIENT CONVERSIONS [address] [place] [address] ProviderKhadar MD [address] [place] [address] Social History Tobacco Use Types Packs/Day [...] - Inhaled Oxygen Concentration - - Weight 88.6 kg (195 lb 4.2 oz) 06/12/20 17 10:59 AM EDT Height 170.2 cm (5' 7 ) 06/12/2017 10:5 9 AM EDT Body Mass Index 30.58 06/12/2017 10:59 AM EDT Body Mass Index Percentile 95.37% 06/12 10:59 AM EDT Growth Chart: CDC (Girls, 2- 20 Years) documented in this encounter Plan of Treatment Not on file documented as of this encounter Visit Diagnoses Not on filedocumented in this encounter
--- OUTSIDE RECORDS SUMMARY | 2024-09-18 09:16 | XMS_ITS | Encounter Summary ---
Author Organization [facility] Address [address] [place] [address] Care Team Providers Care Production Underwriter Name Role Phone Anival Ames MD Primary Care Provider [phone] Reason for Visit * Reason Comments abnormal bleeding Had IUD taken out Encounter Details Date Type Department Care Team (Late st Contact Info) Description 04/17/2022 3:20 PM EDT Office Visit [facility] OBGYN [address] [place] [address] Dianne Mcdaniels MD [address] [place] [address] Abnormal uterine bleeding (AUB) (Primary Dx) Social History Tobacco Use Types Packs/Day Years Used Date Smoking Tobacco: Never Smokeless Tobacco: Never Alcohol Use Standard Drinks/Week Comments No 0 (1 standard drink = 0.6 oz pur e alcohol) [place] Depression Scale Answer Date Recorded Retired [place] Depression Score 0 06/29/2018 Retired EPD Scale: [...] Sign Reading Time Taken Comments Blood Pressure 144/75 04/17/2022 3:36 PM EDT Pulse 84 04/17/2022 3:36 PM EDT Temperature - - Respiratory Rate 18 04/17/2022 3:36 PM EDT Oxygen Saturation 100% 04/17/2022 3:36 PM EDT Inhaled Oxygen Concentration - - Weight 94.3 kg (207 lb 12.8 oz) 04/17/2022 3:36 PM EDT Height 172.7 cm (5' 7.99 ) 04/17/2022 3:36 PM ED T Body Mass Index 31.6 04/17/2022 3:36 PM EDT documented in this encounter Progress Notes * Dianne Mcdaniels MD - 04/17/2022 3:20 PM EDT Gynecologic Exam Note Chief Complaint Patient presents with ??? abnormal bleeding Had IUD taken out CC: AUB Subjective HPI Geovani Cleary is a 21 y.o. female, , who presents with initial evaluation of Abnormal Uterine Bleeding. She states she has experienced this problem for 3 duration: weeks. She describes the severity as severe. She states that the problem is improving. The patient uses 3 of tampons/pads per hour. The patient reports additional symptoms as clotting . The patient has been evaluated: No. In the past the patient has tried patient had Mirena removed to get . Pt reports heavy bleeding that has been present since her Mirena IUD was removed on 03/30/2022. She reports constant, heavy bleeding since that time that seems to have stopped this morning. She does report that prior to having her IUD removed she had an episode of abnormal bleeding and was given a course of antibiotics and a dose of OCPs, but she continued to have abnormal bleeding. She had her IUD removed and attempts to conceive. She is on vitamins. Her last LMP was Bleeding now. Periods are patient has bleed since mirena out, lasting several days. Partner Status: Marital Status: . Additional PAYROLL ASSISTANT History Last Pap : 01/25/2022 Last Completed Pap Smear This patient has no relevant Health Maintenance data. History of abnormal Pap smear: no Tobacco Usage?: No The additional following portions of the patient's history were reviewed and updated as appropriate: allergies, current medications, past family history, past medical history, past social history, past surgical history and problem list. Review of Systems I have reviewed and agree with the HPI, ROS, and historical information as entered above. Dianne Mcdaniels MD Objective BP 144/75 Pulse 84 Resp 18 Ht 172.7 cm (67.99 ) Wt 94.3 kg (207 lb 12.8 oz) SpO2 100% BMI 31.60 kg/m?? Physical Exam Vitals and nursing note reviewed. Exam conducted with a voicer present. Constitutional: Appearance: Normal appearance. HENT: Head: Normocephalic and atraumatic. Pulmonary: Effort: Pulmonary effort is normal. No accessory muscle usage or respiratory distress. Genitourinary: General: Normal vulva. Exam position: Lithotomy position. Labia: Right: No rash, tenderness, lesion or injury. Left: No rash, tenderness, lesion or injury. Urethra: No prolapse, urethral swelling or urethral lesion. Vagina: Normal. No signs of injury and foreign body. No vaginal discharge, erythema, tenderness, bleeding or lesions. Cervix: No cervical motion tenderness, discharge, friability, lesion, erythema or cervical bleeding. Uterus: Normal. Not enlarged, not fixed, not tender and no uterine prolapse. Adnexa: Right adnexa normal and left adnexa normal. Right: No mass, tenderness or fullness. Left: No mass, tenderness or fullness. Neurological: Mental Status: She is alert. Assessment & Plan Assessment Problem List Items Addressed This Visit None Visit Diagnoses Abnormal uterine bleeding (AUB) - Primary Relevant Orders CBC & Differential Comprehensive Metabolic Panel TSH T4, Free HCG, B-subunit, Quantitative Plan 1. Call for heavy bleeding 2. Return PRN 3. Patient reporting an episode of heavy bleeding lasting approximately 17 days since removal of her Mirena IUD. The bleeding stopped this morning. Currently on her examination there is no blood in the vaginal vault and no active bleeding noted. There is no evidence of cervical laceration or any damage. Her bimanual exam is nontender and no abnormalities are noted. She does report some fatigue and so we will screen with labs today and also check a beta hCG. Patient was instructed to call us if the abnormal bleeding returned and we could proceed with an ultrasound for further evaluation. She does report an episode of abnormal bleeding just prior to having her IUD removed for which she was given a course of antibiotics and course of OCPs. Dianne Mcdaniels MD 04/17/2022 documented in this encounter Plan of Treatment Not on file documented as of this encounter Visit Diagnoses Diagnosis Abnormal uterine bleeding (AUB)- Primary documented in this encounter Care Teams Production Underwriter Relationship Specialty Start Date End Date Anival Ames MD PCP - General Emergency Medicine 08/17/20 documented as of this encounter
--- OUTSIDE RECORDS SUMMARY | 2024-09-18 09:16 | XMS_ITS | Encounter Summary ---
Author Organization [facility] Address [address] [place] [address] Care Team Providers Care Elementary [employer] Director Name Role Phone Anival Ames MD Primary Care Provider [phone] Reason for Referral * Diagnostic Imaging (Emergency) - Closed Specialty Diagnoses / Procedures Referred By Contac t Referred To Contact Obstetrics and Gynecology Diagnoses Intrauterine contraceptive device threads lost, initial encounter Procedures US Non-ob Transvaginal Debi Bashir APRN [facility] OBGYN [address] [place] [address] Phone: tel: fax: Referral ID Status Reason Start Date Expiration Date Visits Re quested Visits Authorized [id number] Closed 08/17/2020 08/17/2021 1 1 Reason for Visit * Reason Comments Contraception IUD placement, pt un sure if it has fallen out Encounter Details Date Type Department Care Team (Latest Contact Info) Description 08/17/2020 3:45 PM EDT Office Visit [facility] O[facility]YN [address] [place] [address] Debi Bashir APRN Intrauterine contraceptive device threads lost, initial encounter (Primary Dx) Social History Tobacco Use Types Packs/Day Years Used Date Smoking Tobacco: Never Smokeless Tobacco: Never Alcohol Use Standard Drinks/Week Comments No 0 (1 standard drink = 0.6 oz pur e alcohol) [place] Depression Scale Answer Date Recorded Retired [place] Depression Score 0 06/29/2018 Retired EPD Scale: [...] Sign Reading Time Taken Comments Blood Pressure 130/84 08/17/2020 3:56 PM EDT Pulse - - Temperature 36.5 ??C (97.7 ??F) 08/17/2020 3:56 PM ED T Respiratory Rate - - Oxygen Saturation - - Inhaled Oxygen Concentration - - Weight 93 kg (205 lb) 08/17/2020 3:56 PM EDT Height 175.3 cm (5' 9 ) 08/17/2020 3:56 PM EDT Body Mass Index 30.27 08/17/2020 3:56 PM EDT documented in this encounter Progress Notes * Debi Bashir, MYLES - 08/17/2020 3:45 PM EDT Chief Complaint Patient presents with ??? Contraception IUD placement, pt unsure if it has fallen out Subjective HPI Anders Cleary is a 19 y.o. female, , who presents for the placement of her IUD. Pt. States her partner said he can feel IUD now and was unable to in the past. Thinks the strings feels shorter. Pt denies pain or bleeding. She states she has experienced this problem for 4 days. . The patient reports no additional symptoms. Her last LMP was No LMP recorded.. . Partner Status single. 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 ANNUAL PHYSICAL 2002 ??? HPV VACCINES (1 - 2-dose series) 2010 ??? CHLAMYDIA SCREENING 11/14/2018 ??? TDAP/TD VACCINES (1 - Tdap) 2018 ??? INFLUENZA VACCINE 05/29/2020 ??? HEPATITIS C SCREENING Completed ??? Pneumococcal Vaccine 0-64 Aged Out ??? MENINGOCOCCAL VACCINE (Normal Risk) Aged Out The additional following portions of the patient's history were reviewed and updated as appropriate: allergies, current medications, past family history, past medical history, past social history, past surgical history and problem list. Review of Systems Constitutional: Negative. Gastrointestinal: Negative. Genitourinary: Negative. Psychiatric/Behavioral: Negative. I have reviewed and agree with the HPI, ROS, and historical information as entered above. Debi Bashir APRN Objective BP 130/84 Temp 97.7 ??F (36.5 ??C) Ht 175.3 cm (69 ) Wt 93 kg (205 lb) No BMI 30.27 kg/m?? Physical Exam Vitals signs and nursing note reviewed. Constitutional: Appearance: Normal appearance. Neurological: Mental Status: She is alert. Assessment/Plan Assessment Problem List Items Addressed This Visit None Visit Diagnoses Intrauterine contraceptive device threads lost, initial encounter - Primary Relevant Orders US Non-ob Transvaginal 1. IUD placement Plan 1. Ultrasound today shows IUD correctly placed at fundus of uterus. Debi Bashir APRN 08/17/2020 documented in this encounter Plan of Treatment Not on file documented as of this encounter Results * US Non-ob Transvaginal (08/17/2020 4:30 PM EDT) Anatomical Region Laterality Modality Body Ultrasound 08/17/2020 4:13 PM EDT Narrative 08/20/2020 4:34 PM EDT PAT NAME: ANDERS CLEARY MED REC#: [id number] DA: [id number] PAT GEND: F PAT TYPE: O EXAM GABBY: [id number] REF PHYS DEBI BASHIR Indication ======== iud [...] IUD Recommendation follow up as clinically indicated Anthropology Faculty Member: Greyson Sharp RT R, [facility] Physician: Samuel Heart MD, FACOG Electronically signed by: Samuel Heart MD, FACOG at: 16:34 Procedure Note Samuel Heart MD - 08/20/2020 PAT NAME: ANDERS CLEARY [facility] REC#: [id number] DA: [id number] PAT GEND: F PAT TYPE: O EXAM GABBY: [id number] REF PHYS DEBI BASHIR Indication ======== iud [...] endometrialIUD Recommendation follow up as clinically indicated Anthropology Faculty Member: Greyson Sharp RT R, [facility] Physician: Samuel Heart MD, CLAUDIAOG Electronically signed by: Samuel Heart MD, CLAUDIAOG at: 16:34 us Debi M Manan WALL ATTENDANT IMG US ORDERABLES Final Re sult documented in this encounter Visit Diagnoses Diagnosis Intrauterine contraceptive device threads lost, initial encounter- Primary Intrauterine contraceptive device threads lost, initial encounter documented in this encounter Care Teams Elementary School Director Relationship Specialty Start Date End Date Anival Ames MD PCP - General Emergency Medicine 08/17/20 documented as of this encounter
--- OUTSIDE RECORDS SUMMARY | 2024-09-18 09:16 | XMS_ITS | Encounter Summary ---
Author Organization [facility] Address [address] [place] [address] Care Team Providers Care Stock Repairer Name Role Phone Anival Ames MD Primary Care Provider [phone] Reason for Referral * Diagnostic Imaging (Emergency) - Closed Specialty Diagnoses / Procedures Referred By Contac t Referred To Contact Obstetrics and Gynecology Diagnoses Abnormal uterine bleeding (AUB) Procedures US Non-ob Transvaginal Evy Givens APRN [address] [address] Phone: tel: fax: [facility] [address] [place] [address] Phone: tel:[phone] fax:[phone] Referral ID Status Reason Start Date Expiration Date Visits Re quested Visits Authorized [id number] Closed 01/18/2022 01/18/2023 1 1 Encounter Details Date Type Department Care Team (Late st Contact Info) Description 01/18/2022 3:00 PM EDT Office Visit [facility] [address] [place] [address] Evy Givens APRN [address] [place] [address] Pap test, as part of routine gynecological examination (Primary Dx); Abnormal uterine bleeding (AUB); Women's annual routine gynecological examination; IUD check up Social History Tobacco Use Types Packs/Day Years Used Date Smoking Tobacco: Never Smokeless Tobacco: Never Alcohol Use Standard Drinks/Week Comments No 0 (1 standard drink = 0.6 oz pur e alcohol) [place] Depression Scale Answer Date Recorded Retired [place] Depression Score 0 06/29/2018 Retired EPD Scale: [...] Sign Reading Time Taken Comments Blood Pressure 118/80 01/18/2022 3:45 PM EDT Pulse - - Temperature - - Respiratory Rate - - Oxygen Saturation - - Inhaled Oxygen Concentration - - Weight 96.6 kg (213 lb) 01/18/2022 3:45 PM EDT Height - - Body Mass Index 32.39 05/04/2021 4:26 PM EDT documented in this encounter Progress Notes * Evy Givens APRN - 01/18/2022 3:00 PM EDT TELEPHOTO INSTALLER Annual Exam CC - Here for annual exam. HPI Anders Cleary is a 21 y.o. female, , who presents for annual well woman exam. 11/2021. Periods are patient has bleed off and on for the last five weeks. Dysmenorrhea:none. Patient reports problems with: none. There were no changes to her medical or surgical history since her last visit.. Partner Status: Marital Status: single. She is sexually active. She has not had new partners since her last STD testing. She does not desire STD testing. . She has had her HPV vaccines. Additional LENDING MANAGER History Current contraception: contraceptive methods: IUD. Insertion date: mirena 3 years Desires to: continue contraception Last Pap : patient states last year. Results: neg History of abnormal Pap smear: no Family history of uterine, colon, breast, or ovarian cancer: no Performs monthly Self-Breast Exam: yes Exercises Regularly:yes Feelings of Anxiety or Depression: yes - medication zoloft Tobacco Usage?: No OB History 1 Para 1 Term 1 AB Living 1 SAB IAB Ectopic Molar Multiple 0 Live Births 1 Health Maintenance Topic Date Due ??? Annual Gynecologic Pelvic and Breast Exam Never done ??? ANNUAL PHYSICAL Never done ??? COVID-19 Vaccine (1) Never done ??? HPV VACCINES (1 - 2-dose series) Never done ??? PAP SMEAR Never done ??? TDAP/TD VACCINES (1 - Tdap) Never done ??? INFLUENZA VACCINE Never done ??? CHLAMYDIA SCREENING 05/04/2022 ??? HEPATITIS C SCREENING Completed ??? Pneumococcal [...] and historical information as entered above. Evy Givens, ASSOCIATE TECHNICIAN Objective BP 118/80 Wt 96.6 kg (213 lb) BMI 32.39 kg/m?? Physical Exam Vitals and nursing note reviewed. Exam conducted with a anode worker present. Constitutional: General: She is not in acute distress. Appearance: Normal appearance. She is well-developed. She is obese. She is not ill-appearing. HENT: Head: Normocephalic and atraumatic. Neck: Thyroid: No thyroid mass or thyromegaly. Pulmonary: Effort: Pulmonary effort is normal. No retractions. Chest: Chest wall: No mass. Breasts: Right: Normal. No mass, nipple discharge, skin change or tenderness. Left: Normal. No mass, nipple discharge, skin change or tenderness. Abdominal: Palpations: Abdomen is soft. Abdomen is not rigid. There is no mass. Tenderness: There is no abdominal tenderness. There is no guarding. Hernia: No hernia is present. There is no hernia in the left inguinal area. Genitourinary: General: Normal vulva. Labia: Right: No rash, tenderness or lesion. Left: No rash, tenderness or lesion. Vagina: Normal. No vaginal discharge or lesions. Cervix: Normal. Uterus: Normal. Not enlarged, not fixed and not tender. Adnexa: Right adnexa normal and left adnexa normal. Right: No mass or tenderness. Left: No mass or tenderness. Rectum: No external hemorrhoid. Comments: Unable to see IUD strings Musculoskeletal: Cervical back: Normal range of motion. No muscular tenderness. Skin: General: Skin is warm and dry. Neurological: Mental Status: She is alert and oriented to person, place, and time. Psychiatric: Mood and Affect: Mood normal. Behavior: Behavior normal. Assessment and Plan Problem List Items Addressed This Visit None Visit Diagnoses Pap test, as part of routine gynecological examination - Primary Relevant Orders GP,CTNG,APTIMA HPV Abnormal uterine bleeding (AUB) Relevant Medications doxycycline (MONODOX) 100 MG capsule fluconazole (Diflucan) 150 MG tablet Other Relevant Orders US Non-ob Transvaginal Women's annual routine gynecological examination IUD check up 1. TELEPHOTO INSTALLER annual well woman exam. 2. Reviewed monthly self breast exams. Instructed to call with lumps, pain, or breast discharge. 3. Reviewed exercise as a preventative health measures. 4. RTC in 1 year or PRN with problems 5. D/w pt exam wnl, US wnl--IUD correctly placed. Doxy and call prn continued AUB in 2 wks. Evy Givens APRN 01/18/2022 documented in this encounter Plan of Treatment Not on file documented as of this encounter Procedures Procedure Name Priority Date/Time Associated Diagnosis Comments US NON-OB TRANSVAGINAL STAT 01/18/2022 4:45 PM EDT Abnormal uterine bleeding (AUB) documented in this encounter Results * GP,WENDY JANSEN HPV (01/25/2022 4:28 PM EDT) ThinPrep Vial Cervix uteri structure / Unknown us Evy Givens ASSOCIATE TECHNICIAN PATHOLOGY/CYTOLOGY ORDERABLES Final Result [facility]
[address] [place] [address], * US Non-ob Transvaginal (01/18/2022 4:45 PM EDT) Anatomical Region Laterality Modality Body Ultrasound 01/18/2022 4:28 PM EDT Narrative 01/19/2022 9:49 PM EDT PAT NAME: ANDERS CLEARY MED REC#: [id number] DA: 2000 PAT GEND: F PAT TYPE: O EXAM GABBY: [id number] REF PHYS EVY GIVENS Indication ======== IUD [...] endometrial IUD Recommendation Follow-up as clinically indicated. Jig Builder: Elvira Pacheco RDMS Physician: Luisa Thrasher MD, FACOG Electronically signed by: Luisa Thrasher MD, FACOG at: 21:49 Procedure Note Luisa Thrasher MD - 01/19/2022 PAT NAME: ANDERS CLEARY MED REC#: [id number] DA: 2000 PAT GEND: F PAT TYPE: O EXAM GABBY: [id number] REF PHYS EVY GIVENS Indication ======== IUD [...] endometrial IUD Recommendation Follow-up as clinically indicated. Jig Builder: Elvira Pacheco RDMS Physician: Luisa Thrasher MD, FACOG Electronically signed by: Luisa Thrasher MD, FACOG at: 21:49 us Evy Givens ASSOCIATE TECHNICIAN IMG US ORDERABLES Final Resul t documented in this encounter Visit Diagnoses Diagnosis Pap test, as part of routine gynecological examination- Primary Screening for malignant neoplasm of the cervix Abnormal uterine bleeding (AUB) Women's annual routine gynecological examination IUD check up documented in this encounter Care Teams Stock Repairer Relationship Specialty Start Date End Date Anival Ames MD PCP - General Emergency Medicine 08/17/20 documented as of this encounter
--- OUTSIDE RECORDS SUMMARY | 2024-09-18 09:16 | XMS_ITS | Encounter Summary ---
Author Organization [facility] Address [address] [place] [address] Care Team Providers Care Oil Pipe Inspector Name Role Phone Anival Ames MD Primary Care Provider [phone] Reason for Visit * Reason Onset Date Comments OB YENY-MORAIMA 09/18/2022 Encounter Details Date Type Department Care Team (Late st Contact Info) Description 09/18/2022 Telephone [facility] OBGYN [address] [place] [address] Roland Pinzon MD [address] [facility] [address] [place] [address] OB YENY-MORAIMA Social History Tobacco Use Types Packs/Day Years Used Date Smoking Tobacco: Never Smokeless Tobacco: Never Alcohol Use Standard Drinks/Week Comments No 0 (1 standard drink = 0.6 oz pur e alcohol) [place] Depression Scale Answer Date Recorded Retired [place] Depression Score 0 06/29/2018 Retired EPD Scale: [...] Miscellaneous Notes * Telephone Encounter - Trista Sanchez MA - 09/18/2022 10:06 AM EST Attempted to call pt. Unable to lvom due to vm not set up yet * Telephone Encounter - Trista Sanchez MA - 09/18/2022 9:[address] Moraima QURESHI pt. LMP: 08/17 NOB appt: 09/28 Attempted to call pt. Unable to lvom due to vm not set up yet * Telephone Encounter - Thalia Viveros RegSched Rep - 09/18/2022 9:45 AM EST Caller: Geovani Claery Relationship to patient: Self Best call back number: [phone] Patient is needing: PT IS NEEDING TO KNOW IF SHE SHOULD STOP TAKING CITALOPRAM documented in this encounter Plan of Treatment Not on file documented as of this encounter Visit Diagnoses Not on filedocumented in this encounter Care Teams Oil Pipe Inspector Relationship Specialty Start Date End Date Anival Ames MD PCP - General Emergency Medicine 08/17/20 documented as of this encounter
--- OUTSIDE RECORDS SUMMARY | 2024-09-18 09:16 | XMS_ITS | Encounter Summary ---
Author Organization [facility] Address [address] [place] [address] Care Team Providers Care Ecommerce Manager Name Role Phone Anival Ames MD Primary Care Provider [phone] Reason for Visit * Reason Onset Date Comments SHAUN PT-MISSED CALL 09/18/2022 Encounter Details Date Type Department Care Team (Late st Contact Info) Description 09/18/[address] [facility]YN [address] [place] [address] Jacek Walters MD [address] [place] [address] SHAUN PT-MISSED CALL Social History Tobacco Use Types Packs/Day Years Used Date Smoking Tobacco: Never Smokeless Tobacco: Never Alcohol Use Standard Drinks/Week Comments No 0 (1 standard drink = 0.6 oz pur e alcohol) [place] Depression Scale Answer Date Recorded Retired [place] Depression Score 0 06/29/2018 Retired EPD Scale: [...] Telephone Encounter - Myra Iraheta MA - 09/18/2022 10:53 AM EST Informed patient it is safe to continue taking medication. Will discuss medication further at 09/28 appt. * Telephone Encounter - Estiven Dorsey RegSched Rep - 09/18/2022 10:03 AM EST Caller: Geovani Cleary Relationship to patient: Self Best call back number: [phone]-CALL ANYTIME, IT IS OKAY TO LVM Patient is needing: PT IS RETURNING MISSED CALL REGARDING CITALOPRAM MEDICATION. UNABLE TO W/T documented in this encounter Plan of Treatment Not on file documented as of this encounter Visit Diagnoses Not on filedocumented in this encounter Care Teams Ecommerce Manager Relationship Specialty Start Date End Date Anival Ames MD PCP - General Emergency Medicine 08/17/20 documented as of this encounter
[2024-09-18 09:25] VITALS: BP 133/85; PULSE 97; RESP 18; TEMP 36.4; O2SAT 96; BMI 32.8
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
[2024-09-18 09:45] LABS: Apearance,Urine Clear (Clear); Color,Urine Dark Yellow (Yellow)
[2024-09-18 09:46] LABS: Bilirubin,Urine Negative (Negative); Blood, Urine 1+ (Negative); Glucose,Urine (UA) Negative (Negative); Ketones,Urine Negative (Negative); PH,Urine 6.5 (5.0-8.5); Protein,Urine Negative (Negative); UTC Leukocyte Esterase,Urine Negative (Negative); UTC Nitrate,Urine Negative (Negative); Urobilinogen,Urine 0.2 EU/dl (0.2)
[2024-09-18 10:38] VITALS: BP 133/85; PULSE 97; RESP 18; TEMP 36.4; O2SAT 96
== END 2024-09-18 10:39 | disposition home or self-care (01) ==
PROVIDERS: Emergency Provider Nurse Practitioner Family; PCP Nurse Practitioner Family
DX: N39.0 Urinary tract infection, site not specified (principal)
CPT/HCPCS: 81003; 87086; 99213; G0381

== ENCOUNTER 2025-01-14 10:50 | Outpatient (CLI) | payer SELFPAY | END 2025-01-14 23:59 | disposition home or self-care (01) | LOC: LAB.DROPOF 01-15 11:00 | PROVIDERS: PCP Nurse Practitioner; Visit Provider Nurse Practitioner | DX: R35.0 Frequency of micturition (principal) | CPT/HCPCS: 87086 ==

== ENCOUNTER 2025-07-24 11:53 | Outpatient (CLI) | payer OTHER, SELFPAY ==
--- OUTSIDE RECORDS SUMMARY | 2025-03-04 07:15 | XMS_ITS ---
Author Organization [facility] Address [address] [facility] [address] [place] [id number] Care Team Providers Care Designer Architect Name Role Phone Lebronmeño Sarita Unavailable [phone] Allergies No Known Allergies REASON FOR VISIT told to be here at 11 for PW, Recurring UTI's Encounters Encounter Location Date Provider Diagnosis [facility] [address] [place] [phone] 03/04/2025 Sarita Velasquez Plan Of Treatment No Information Progress Notes * CLEARYCameronGiselaB:2000 (24 yo F)Acc No.[id number]:03/04/2025 Progress Notes Patient: Geovani HARLEY Provider: SANJU Cuadra :2000 A ge:24 Y S ex:Female Date:03/04/2025 Phone: Address:[address] [place] [address], [facility] Subjective: * Chief Complaints: * 1 . told to be here at 11 for PW, Recurring UTI's. * HPI: U rology: 24 year old female presents with c/o frequent urination. * 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: M edical History Verified. * Family History: N o Family History documented.. * Allergies: N .K.D.A. Objective: * Vitals: Assessment: Plan: * Treatment: * Images: Billing Information: * Visit Code: * Procedure Codes: * Electronic signature of SANJU Rios on 07/27/2025 at 11:03 AM EDT Sign off status: Pending * Provider: SANJU Cuadra Date: 0 03/04/2025 Generated for Printi ng/Faxing/eTransmitting on: 0 07/27/2025 11:03 AM EDT History and Physical Notes * HPI (History of Present Illness) Category Sub-Category Detail Notes Category Not es Urology frequent urination
--- OUTSIDE RECORDS SUMMARY | 2025-07-27 11:03 | XMS_ITS | Clinical Summary ---
Author Organization [facility] Address [address] [place] [phone] Phone Care Team Providers Care Professional System Administrator Name Role Phone Unavailable Primary Care Provider Unavailabl e Allergies No known active allergies Medications medroxyPROGESTE Casey (PROVERA) 10 mg Oral Tablet Take 10 mg by mouth daily. 3 Active estradioL (ESTRACE) 0.01 % (0.1 mg/gram) Vagl CreamIndication s:Vaginal atrophy Apply 0.5g (pea-sized amount) with fingertip nightly 42.5 g 1 5 Active Active Problems No known active problems Social History Tobacco Use Types Packs/Day Years Used Date Smoking Tobacco: Never Smokeless Tobacco: Never Alcohol Use Standard Drinks/Week Comments Not Currently 0 (1 standard drink = 0.6 oz pur e alcohol) Sexually Active Control Partners Comments Yes I.U.D. Comments Unknown Sex and Gender Information Value Date Recorded Sex Assigned at Not on file Legal Sex Female 1:12 PM EDT Gender Identity Not on file Sexual Orientation Not on file Obstetrics History Para Term AB IAB SAB Ectopic Multiple Livin g Live Births 2 2 2 2 2 Date Outcome GA Total Labor Labor/2nd/3rd Weight Sex Type Anes PTL Tatianna A1 A5 Name Clin 2017 Term 39w 6d 1h 40m 1h 35m/0h 05m 7 lb 15.5 oz (3.615 kg) M Vag-S pont Epidur al N Livin g 8 9 CAROLINE ROJAS,MARYSOL SKELTON Y Efrain tatum MD Complications:None Delivery Location:[facility] [facility] ( [facility]) 2022 Term 38w 1d 14h 13m 13h 36m/0h 33m/0h 04m 7 lb 11.3 oz (3.495 kg) M Vag-S pont Epidur al N Livin g 8 9 CAROLINE TS,MARYSOL SKELTON Y Jacek tatum MD Complications:None Delivery Location: [facility] [facility] ( [facility]) Last Filed Vital Signs Vital Sign Reading Time Taken Comments Blood Pressure - - Pulse 78 03/12/2025 8:33 AM EDT Temperature - - Respiratory Rate - - Oxygen Saturation 97% 03/12/2025 8:33 AM EDT Inhaled Oxygen Concentration - - Weight - - Height - - Body Mass Index - - Plan of Treatment Upcoming Encounters Date Type Department Care Team (Late st Contact Info) Description 09/16/2025 11:00 AM EST Office Visit [facility] [address] [phone] Angelica Schneider, MYLES [address] [place] [id number] Health Maintenance Due Date Last Done Comments Annual Wellness Exam 2002 DTaP/TDaP/Td (5 - Tdap) 2010 02/15/20 05, 04/02/2002, 09/07/2000, Additional history exists HPV (1 - 3-dose series) 2014 Cervical Cancer Screening 2020 Pap Smear 2020 COVID-19 Vaccine ( season) 2025 Influenza Vaccine (#1) 2025 Hepatitis B Vaccine Completed 02/14/2005, 04/02/2002, 09/07/2000 Meningococcal B Vaccine Aged Out No l onger eligible based on patient's age to complete this topic Pneumococcal Vaccine 0-49 Aged Out No longer eligible based on patient's age to complete this topic Insurance THAIS Gutierrez [id number] [facility] [address] [place] [address] [facility] [address] [place] [address]
--- OUTSIDE RECORDS SUMMARY | 2025-07-27 11:03 | XMS_ITS | Clinical Summary ---
Author Organization [facility] Address [address] [place] [address] Care Team Providers Care Security Associate Name Role Phone Anival Ames MD Primary Care Provider [phone] Allergies No known active allergies Medications medroxyPROGESTER [...] delivery 06/27/2018 05/04/2021 Decreased movement 04/07/201804/2021 Immunizations Immunization Administration Dates Next Due DTaP, Unspecified 02/14/2005,04/02/2002,09/07/20 00,02/18/2000 Hep B, Adolescent or Pediatric 02/14/2005,2001,09/07/2000 Hib (PRP-T) 04/02/2002,09/07/2000,02/18/2000 IPV 02/14/2005,04/02/2002,09/07/2000 ,02/18/2000 MMR 06/02/2005,02/14/2005 Varicella 04/02/2002 Family History 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 Relation Name Comments Coronary artery disease Brother Yosef Cleary Hypertension Brother Yosef Cleary Hypertension Father Narciso Cleary Hypertension Maternal Grandfather Pio Evin Hypertension Paternal Grandfather Narciso Cleary Relation Name Status Comments Brothyony Cleary Maternal Grandfather Piokevon Cleary Paternal Grandfather Narciso Cleary Social History [...] things needed for daily living? No 05/10/2023 [place] Depression Scale Answer Date Recorded Retired [place] Depression Score 2 07/03/2023 Retired EPD Scale: Thought of Harming Self Unrec ognized value 07/03/2023 Abuse Screen Answer Date Recorded Unsafe [...] 65 05/12/2023 8:06 AM EDT Temperature 36.4 C (97.6 F) 05/12/2023 8:06 AM EDT Respiratory Rate 16 05/12/2023 8:06 AM EDT Oxygen Saturation 100% 04/17/2022 3:36 PM EDT Inhaled Oxygen Concentration - - Weight 94.1 kg (207 lb 6.4 oz) 12/11/2023 2:58 P M EST Height 175.3 cm (5' 9 ) 12/11/2023 2:58 PM EST Body Mass Index 30.63 12/11/2023 2:58 PM EST Plan of Treatment Health Maintenance Due Date Last Done Comments HPV VACCINES (1 - 3-dose series) 2014 ANNUAL PHYSICAL 06/26/2018 TDAP/TD VACCINES (1 - Tdap) 2018 Annual Gynecologic Pelvic and Breast Exam 01/19/2023 01/18/2022 INFLUENZA VACCINE 05/29/2025 HEPATITIS C SCREENING Completed 09/28/2022, 018 CHLAMYDIA SCREENING Discontinued 12/11/2023, 09/28/2022, 05/04/2021, Additional history exists Pneumococcal Vaccine 0-49 Aged Out No longer eligible based on patient's age to complete this topic Procedures Procedure Name Priority Date/Time Associated Diagnosis Comments VAGINITIS PLUS (VG+) WITH ONELIA (SIX SPECIES), NUSWAB Routine 12/11/2023 3:45 PM EST [...] individual bacterial vaginosis (BV) marker scores together. Total score is interpreted as follows: Total score 0-1: Indicates the absence of BV. Total score 2: Indeterminate for BV. Additional clinical data should be evaluated to establish a diagnosis. Total score 3-6: Indicates the presence of BV. This test was developed and its performance characteristics determined by [facility]. It has not been cleared or approved [...] / Unknown 12/11/2023 3:45 PM EST 12/11/2023 [facility] ([facility]) - 12/14/2023 6:13 AM EST Test(s) 308068-Xfcwvrt albicans, MICHAEL; 392209-Efimxyq glabrata, MICHAEL; 701616-E parapsilosis/tropicalis; 672868-Vqqfukv lusitaniae, MICHAEL; 553533-Svmvgmb krusei, MICHAEL was developed and its performance characteristics determined by [facility]. It has not been cleared or approved by the Food and Drug Administration. Performed at: - [facility] [place] [id number] Wire Harness Design Engineer: Yojana Miranda MD, Phone: [phone] Patient Fasting: N Linda Chavarria PIPE ROLLER PATHOLOGY/CYTOLOGY ORDERA BLES Final Result [facility] ([facility]BUL[facility]) [address] [place] [address], [facility] [address] [place] [address], * (ABNORMAL) Obstetric Panel (09/28/2022 10:20 AM EST) Hepatitis B Surface Ag Negative Negative [facility] Hep C Virus Ab <0.1 0.0 - 0.9 s/co ratio [facility] Comment: Negative: < 0.8 Indeterminate: 0.8 - 0.9 Positive: > 0.9 HCV antibody alone does not differentiate between previous resolved infection and active infection. The CDC and current clinical guidelines recommend that a positive HCV antibody result be followed up with an HCV RNA test to support the diagnosis of acute HCV infection. [facility] offers Hepatitis C Virus (HCV) RNA, Diagnosis, MICHAEL (595168) and Hepatitis C Virus (HCV) Antibody with reflex to Quantitative Real-time PCR ([id number]). RPR Non Reactive Non Reactive [facility] Rubella Antibodies, IgG 4.98 Immune >0.99 index [facility] Comment: Non-immune <0.90 Equivocal 0.90 - 0.99 Immune >0.99 ABO Type A [facility] Rh [...] - 09/29/2022 10:11 AM EST Performed at: 01 - [facility] [address] [place] [id number] Wire Harness Design Engineer: Ortiz Heath PhD, Phone: [phone] Patient Fasting: N us Roland Pinzon MD LAB BLOOD ORDERABLES Final Result [facility]) [address] [place] [address], [facility] [address] [place] [address], from Last 3 Months or Most Recently Relevant to Health Maintenance Insurance [facility] PPO Advance Directives * CPR (Attempt to [...] pulse or is breathing): Full Care Teams Security Associate Relationship Specialty Start Date End Date Anival Ames MD PCP - General Emergency Medicine 08/17/20
--- OUTSIDE RECORDS SUMMARY | 2025-07-27 11:03 | XMS_ITS | Clinical Summary ---
Author Organization [facility] Address [address] [place] [address] Care Team Providers Care Bank Secrecy Act Officer Name Role Phone Unavailable Primary Care Provider [...]
--- OUTSIDE RECORDS SUMMARY | 2025-07-27 11:03 | XMS_ITS | Patient Health Record ---
[facility] [address] [place] [facility] [address] [id number] Care Team Providers Care Blade Bender Furnace Tender Name Role Phone Sarita Velasquez Unavailable [phone] Allergies No Known Allergies Reason For Referral No Information Plan Of Treatment No Information
== END 2025-07-24 23:59 ==
LOC: LAB.DROPOF 07-27 10:57
PROVIDERS: PCP Nurse Practitioner; Visit Provider Nurse Practitioner
DX: N39.0 Urinary tract infection, site not specified (principal)
CPT/HCPCS: 87086; 87088; 87186

== ENCOUNTER 2025-10-24 09:00 | Outpatient (CLI) | payer OTHER, SELFPAY ==
--- OUTSIDE RECORDS SUMMARY | 2025-10-26 09:10 | XMS_ITS | Clinical Summary ---
[facility] Organization [facility] Address [address] [place] [address] Care Team Providers Care Merchandising Assistant Name Role Phone Anival Ames MD Primary Care Provider [phone] Allergies No known active allergies Medications medroxyPROGESTER [...] things needed for daily living? No 05/10/2023 [place] Depression Scale Answer Date Recorded [place] Depression Scale Total 2 07/03/2023 The thought of harming myself has occurred to me . Unrecognized value 07/03/2023 Abuse Screen Answer Date Recorded [...] developed and its performance characteristics determined by [facility]. It has not been cleared or approved [...] / Unknown 12/11/2023 3:45 PM EST 12/11/2023 [facility]) - 12/14/2023 6:13 AM EST Test(s) 955894-Ohshbcc albicans, MICHAEL; 717967-Drgytqj glabrata, MICHAEL; 226467-C parapsilosis/tropicalis; 534383-Stviwfl lusitaniae, MICHAEL; 311194-Tvonxtm krusei, MICHAEL was developed and its performance characteristics determined by [facility]. It has not been cleared or approved by the Food and Drug Administration. Performed at: 01 - [facility] [place] [id number] Office Machine Punch Operator: Yojana Miranda MD, Phone: [phone] Patient Fasting: N Linda M Aura DIESEL ENGINE II PIPE FITTER PATHOLOGY/CYTOLOGY ORDERA BLES Final Result [facility] (AMBULATORY) [address] [place] [address], [facility] [address] [place] [address], * (ABNORMAL) Obstetric Panel (09/28/2022 10:20 AM [...] Hepatitis C Virus (HCV) RNA, Diagnosis, MICHAEL ([id number]) and Hepatitis C Virus (HCV) Antibody with reflex to Quantitative Real-time PCR ([id number]). RPR Non Reactive Non Reactive [facility] [...] AM EST Performed at: 01 - [facility] [address] [id number] Office Machine Punch Operator: Ortiz Heath PhD, Phone: [phone] Patient Fasting: N Roland Pinzon MD LAB BLOOD ORDERABLES Final Result [facility]) [address] [place] [address], [facility] [address] [place] [address], from Last 3 Months or Most Recently Relevant to Health Maintenance Insurance [facility] PPO Advance Directives * CPR (Attempt to [...] pulse or is breathing): Full Care Teams Merchandising Assistant Relationship Specialty Start Date End Date Anival Ames MD PCP - General Emergency Medicine 08/17/20
--- OUTSIDE RECORDS SUMMARY | 2025-10-26 09:10 | XMS_ITS | Clinical Summary ---
Author Organization [facility] Address [address] [place] [address] Care Team Providers Care Bite Block Maker Name Role Phone Unavailable Primary Care Provider [...]
--- OUTSIDE RECORDS SUMMARY | 2025-10-26 09:10 | XMS_ITS | Clinical Summary ---
Author Organization [facility] Address [address] [place] [phone] Phone Care Team Providers Care Center Mgr Name Role Phone Unavailable Primary Care Provider [...] g 8 9 CAROLINE ROJAS,MARYSOL SKELTON Y Jacek tatum MD Complications:None Delivery [...] Mass Index - - Plan of Treatment Health Maintenance Due Date Last Done Comments Annual Wellness Exam 2002 DTaP/TDaP/Td (5 - Tdap) 2010 02/15/20 05, 04/02/2002, 09/07/2000, Additional history exists HPV (1 - 3-dose series) 2014 Cervical Cancer Screening 2020 Pap Smear 2020 COVID-19 Vaccine (2024- season) 2025 Influenza Vaccine (#1) 2025 Hepatitis B Vaccine Completed 02/14/2005, 04/02/2002, 09/07/2000 Meningococcal B Vaccine Aged Out No l onger eligible based on patient's age to complete this topic Pneumococcal Vaccine 0-49 Aged Out No longer eligible based on patient's age to complete this topic Insurance [facility] [id number] THAIS Gutierrez [id number] [facility] [id number]
== END 2025-10-24 23:59 | disposition home or self-care (01) ==
LOC: LAB.DROPOF 10-26 09:01
PROVIDERS: PCP Nurse Practitioner Family; Visit Provider Student in an Organized Health Care Education/Training Program
DX: N39.0 Urinary tract infection, site not specified (principal)
CPT/HCPCS: 87086